=== PATIENT | female | born 1975 | race Caucasian/White ===

== ENCOUNTER 2016-09-12 17:34 | Emergency (ER) | payer BC, OTHER ==
[2016-09-12 18:10] VITALS: TEMP 98.7
--- NOTE | 2016-09-12 18:35 | ED ---
Female Urogenital HPI - General Chief complaint: Urogenital Stated complaint: preg bleeding Time Seen by Provider: 09/12/16 18:15 Source: patient, RN notes reviewed Mode of arrival: ambulatory Limitations: no limitations - History of Present Illness Initial comments: Patient is a 41-year-old female presents emergency room for evaluation of dysuria. Patient states she is about 14 weeks . Patient states she found out about a month ago that she was she was about 10 weeks along. Patient states she's not been able to follow-up with [facility] yet. Patient states she does not have an appointment until 10/04/16. Patient states pain and burning during urination began about 3 days ago. Patient also states last time she was here she was diagnosed with urinary tract infection and feels that the infection never went away. Patient states after she started urinating a blood clot passes. Patient states she does not think it's coming from her vaginal area. Patient denies abdominal cramping. Patient's age she has slight flank pain. Patient denies fevers, chills. Patient denies nausea or vomiting. Patient also states been experiencing right leg swelling for the past few weeks. Patient states afraid she's blood clot. Patient denies any history of blood clots. Patient denies any significant right leg pain. Patient denies any numbness or tingling in her toes. Patient denies any recent injuries, falls or trauma to her right leg. Last Menstrual Period: 06/03/16 - Related Data Home Medications Medication Instructions Recorded Confirmed Timolol 0.5% Ophth Soln [Timoptic 1 drop LEFT EYE TID 08/13/16 09/12/16 0.5% Ophth Soln] Ascorbic Acid [Vitamin C] 500 mg PO DAILY 09/12/16 09/12/16 Cyanocobalamin [Vitamin B-12] 500 mcg PO DAILY 09/12/16 09/12/16 Previous Rx's Medication Instructions Recorded Amoxicillin/Potassium Clav 1 each PO Q12HR 7 Days 09/12/16 [Augmentin 875-125 Tablet] Allergies Allergy/AdvReac Type Severity Reaction Status Date / Time No Known Allergies Allergy Verified 09/12/16 18:23 Review of Systems ROS Statement: Those systems with pertinent positive or pertinent negative responses have been documented in the HPI. ROS Other: All systems not noted in ROS Statement are negative. Past Medical History Past Medical History: Asthma Additional Past Medical History / Comment(s): meningitis History of Any Multi-Drug Resistant Organisms: ESBL Date of last positivie culture/infection: 08/13/16 MDRO Source:: urine e.coli ESBL Additional Past Surgical History / Comment(s): sinus and eye surgery Past Anesthesia/Blood Transfusion Reactions: No Reported Reaction Past Psychological History: Anxiety, Depression Smoking Status: Never smoker Past Alcohol Use History: None Reported Past Drug Use History: None Reported General Exam - General Exam Comments Initial Comments: Sitting in exam room, no acute distress. Limitations: no limitations General appearance: alert, in no apparent distress Head exam: Present: atraumatic, normocephalic, normal inspection Eye exam: Present: normal appearance ENT exam: Present: normal exam Neck exam: Present: normal inspection Respiratory exam: Present: normal lung sounds bilaterally. Absent: respiratory distress Cardiovascular Exam: Present: regular rate, normal rhythm, normal heart sounds GI/Abdominal exam: Present: soft, normal bowel sounds. Absent: distended, tenderness, guarding, rebound, rigid Extremities exam: Present: normal inspection, normal capillary refill Right Upper Leg exam: Absent: normal inspection (Enlarged veins on the medial upper thigh radiating to the medial portion of the knee) Neurovascular tendon exam: Present: no vascular compromise. Absent: pulse deficit (2+ dorsal pedal and posterior tibial pulses), abnormal cap refill ( Capillary refill less than 2 seconds) Gait: observed and normal Back exam: Present: normal inspection Neurological exam: Present: alert, oriented X3, CN II-XII intact, normal gait Psychiatric exam: Present: normal affect, normal mood Skin exam: Present: warm, dry, intact, normal color. Absent: rash Course Vital Signs 09/12/16 09/12/16 18:07 20:20 Temperature 98.7 F Pulse Rate 86 72 Respiratory 18 16 Rate Blood Pressure 157/75 123/67 O2 Sat by Pulse 100 Oximetry Medical Decision Making - Medical Decision Making Patient is a 41-year-old female since emergency room for evaluation of dysuria. Patient states she is 14 weeks . heart tones within normal range. Patient urinalysis still suspicious for urinary tract infection. No blood urine noted in urine. No blood noted during vaginal exam. Patient had a culture taken during last visit of her urine. Will place patient on Augmentin instead of Macrobid which she was on last time. Advised patient to follow-up with her [facility]. Right lower extremity venous Doppler ultrasound negative for DVT. Patient states she understands everything that was discussed with her. Return parameters discussed. Case discussed with Dr. Saul. - Lab Data Lab Results 09/12/16 09/12/16 Range/Units 18:00 19:25 Urine Color Yellow Urine Appearance Clear (Clear) Urine pH 6.0 (5.0-8.0) Ur Specific [place] 1.022 (1.001-1.035) Urine Protein Trace H (Negative) Urine Glucose (UA) Negative (Negative) Urine Ketones Trace H (Negative) Urine Blood Negative (Negative) Urine Nitrate Negative (Negative) Urine Bilirubin Negative (Negative) Urine Urobilinogen 2.0 (<2.0) mg/dL Ur Leukocyte Esterase Small H (Negative) Urine RBC 8 H (0-5) /hpf Urine WBC 46 H (0-5) /hpf Urine WBC Clumps Rare H (None) /hpf Ur Squamous Epith Cells 2 (0-4) /hpf Urine Bacteria Many H (None) /hpf Urine Mucus Few H (None) /hpf Trichomonas Ag (Rapid) Negative (Negative) - Radiology Data Radiology results: report reviewed, image reviewed Disposition Clinical Impression: Urinary tract infection affecting , Varicose veins during , antepartum Disposition: HOME SELF-CARE Condition: Good Instructions: Urinary Tract Infection in (ED) Additional Instructions: Take antibiotics as directed. Take Tylenol motion seen for pain. Please follow up with [facility] in 24-48 hours. If any new symptom arises, symptoms worsen or fever develops return to ER as soon as possible. Prescriptions: Amoxicillin/Potassium Clav [Augmentin 875-125 Tablet] 1 each PO Q12HR 7 Days Referrals: Halima Tyson MD [STAFF PHYSICIAN] - 1-2 days Time of Disposition: 20:07
[2016-09-12 18:44] LABS: Appearance,Urine Clear (Clear); Bacteria,Urine Many /hpf; Bilirubin,Urine Negative (Negative); Glucose,Urine (UA) Negative (Negative); Ketones,Urine Trace (Negative); Leukocyte Esterase,Urine Small (Negative); Mucus,Urine Few /hpf; Nitrite,Urine Negative (Negative); Particle Count 7761; Protein,Urine Trace (Negative); RBC,Urine 8 /hpf (0-5); Specific Gravity,Urine 1.022 (1.001-1.035); Squamous Epithelial Cell,Urine 2 /hpf (0-4); UA Billing (MACRO vs. MICRO) MICRO; WBC,Urine 46 /hpf (0-5)
--- NOTE | 2016-09-12 19:53 | US ---
EXAMINATION TYPE: US venous doppler duplex LE RT DATE OF EXAM: 09/12/2016 7:38 PM COMPARISON: NONE CLINICAL HISTORY: right leg swelling and pain, 14 weeks . SIDE PERFORMED: right VESSELS IMAGED: External Iliac Vein (EIV) Common Femoral Vein Deep Femoral Vein Greater Saphenous Vein * Femoral Vein Popliteal Vein Small Saphenous Vein * Proximal Calf Veins (* superficial vessels) TECHNOLOGIST IMPRESSION: Right Leg: appears negative for DVT IMPRESSION: Normal exam. No evidence of deep venous thrombosis in the right leg.
[2016-09-12 20:21] VITALS: BP 123/67; PULSE 72; RESP 16
== END 2016-09-12 20:20 | disposition home or self-care (01) ==
LOC: EC 17:34
DX: O23.42 Unspecified infection of urinary tract in pregnancy, second trimester (principal); Z3A.14 14 weeks gestation of pregnancy; O22.02 Varicose veins of lower extremity in pregnancy, second trimester; Z79.899 Other long term (current) drug therapy
CPT/HCPCS: 81001; 87070; 87205; 87491; 87591; 87808; 99284

== ENCOUNTER 2016-09-21 17:27 | Emergency (ER) | payer BC, OTHER ==
[2016-09-21 17:46] VITALS: BP 138/77; PULSE 77; RESP 20; TEMP 98.1
[2016-09-21 18:10] LABS: Appearance,Urine Turbid (Clear); Bilirubin,Urine Negative (Negative); Glucose,Urine (UA) Negative (Negative); Ketones,Urine 2+ (Negative); Leukocyte Esterase,Urine Large (Negative); Mucus,Urine Rare /hpf; Nitrite,Urine Negative (Negative); Particle Count 3052; Protein,Urine 1+ (Negative); RBC,Urine >182 /hpf (0-5); Specific Gravity,Urine 1.022 (1.001-1.035); Squamous Epithelial Cell,Urine 2 /hpf (0-4); UA Billing (MACRO vs. MICRO) MICRO; WBC,Urine >182 /hpf (0-5)
--- NOTE | 2016-09-21 18:44 | ED ---
Female Urogenital HPI - General Chief complaint: Urogenital Stated complaint: UTI Time Seen by Provider: 09/21/16 17:55 Source: patient, RN notes reviewed Mode of arrival: ambulatory Limitations: no limitations - History of Present Illness Initial comments: She is a 41-year-old 15 week female presenting to the with a complaint of dysuria and polyuria for the past week. Patient reports that she was seen in the approximately one week ago and multiple lab tests were done and concluded that she has a urinary tract infection. Patient was placed on Augmentin to treat her UTI. Patient reports that since taking antibiotic she continues to have symptoms. She denies any fever or chills abdominal pain or back pain. She denies any nausea or vomiting. She states that she has not been remaining hydrated as well. Patient reports that she's had chronic urinary tract infections her on her entire life. She denies any vaginal discharge. She denies any vaginal bleeding or pelvic pain.Patient denies any recent fever, chills, shortness of breath, chest pain, back pain, abdominal pain , nausea vomiting, numbness or tingling, or hematuria, constipation or diarrhea , headaches or visual changes, or any other current symptoms - Related Data Home Medications Medication Instructions Recorded Confirmed Ascorbic Acid [Vitamin C] 500 mg PO DAILY 09/12/16 09/21/16 Cyanocobalamin [Vitamin B-12] 500 mcg PO DAILY 09/12/16 09/21/16 Amoxicillin/Potassium Clav 1 tab PO Q12HR 09/21/16 09/21/16 [Augmentin 875-125 Tablet] Previous Rx's Medication Instructions Recorded Cephalexin [Keflex] 500 mg PO Q8HR #21 cap 09/21/16 Allergies Allergy/AdvReac Type Severity Reaction Status Date / Time No Known Allergies Allergy Verified 09/21/16 18:07 Review of Systems ROS Statement: Those systems with pertinent positive or pertinent negative responses have been documented in the HPI. ROS Other: All systems not noted in ROS Statement are negative. Past Medical History Past Medical History: Asthma Additional Past Medical History / Comment(s): meningitis History of Any Multi-Drug Resistant Organisms: ESBL Date of last positivie culture/infection: 08/13/16 MDRO Source:: urine e.coli ESBL Additional Past Surgical History / Comment(s): sinus and eye surgery Past Anesthesia/Blood Transfusion Reactions: No Reported Reaction Past Psychological History: Anxiety, Depression Smoking Status: Never smoker Past Alcohol Use History: None Reported Past Drug Use History: None Reported General Exam - General Exam Comments Initial Comments: is a pleasant 41-year-old female. She does not appear to be in any acute distress. Limitations: no limitations General appearance: alert, in no apparent distress Head exam: Present: atraumatic, normocephalic, normal inspection Eye exam: Present: normal appearance, PERRL, EOMI. Absent: scleral icterus, conjunctival injection, periorbital swelling ENT exam: Present: normal exam, mucous membranes moist Neck exam: Present: normal inspection. Absent: tenderness, meningismus, lymphadenopathy Respiratory exam: Present: normal lung sounds bilaterally. Absent: respiratory distress, wheezes, rales, rhonchi, stridor Cardiovascular Exam: Present: regular rate, normal rhythm, normal heart sounds. Absent: systolic murmur, diastolic murmur, rubs, gallop, clicks GI/Abdominal exam: Present: soft, normal bowel sounds. Absent: distended, tenderness, guarding, rebound, rigid Extremities exam: Present: normal inspection, full ROM, normal capillary refill. Absent: tenderness, pedal edema, joint swelling, calf tenderness Back exam: Present: normal inspection Neurological exam: Present: alert, oriented X3, CN II-XII intact Psychiatric exam: Present: normal affect, normal mood Skin exam: Present: warm, dry, intact, normal color. Absent: rash Course Vital Signs 09/21/16 17:39 Temperature 98.1 F Pulse Rate 77 Respiratory 20 Rate Blood Pressure 138/77 O2 Sat by Pulse 100 Oximetry Medical Decision Making - Medical Decision Making Patient is a pleasant 41-year-old female presenting to the with chief complaint of dysuria for 1 week. She has recently treated a prescription of Augmentin however she continues to have symptoms. There is no urine culture obtained on her initial visit. Patient's urinalysis does show signs of urinary tract infection again today. Patient will be started on Keflex and instructed to remain hydrated and take cranberry pills. I advised patient to return the EC if there are any fevers or worsening signs or symptoms. Patient understands treatment plan will comply. A urine culture is obtained at this time. Also given the fact the patient does not have any abdominal pain or pelvic discomfort we will forego any pelvic exams or imaging studies at this time. She also had a pelvic exam one week ago and was negative for any acute infection. - Lab Data Lab Results 09/21/16 Range/Units 17:46 Urine Color Yellow Urine Appearance Turbid H (Clear) Urine pH 6.0 (5.0-8.0) Ur Specific [place] 1.022 (1.001-1.035) Urine Protein 1+ H (Negative) Urine Glucose (UA) Negative (Negative) Urine Ketones 2+ H (Negative) Urine Blood Moderate H (Negative) Urine Nitrate Negative (Negative) Urine Bilirubin Negative (Negative) Urine Urobilinogen 2.0 (<2.0) mg/dL Ur Leukocyte Esterase Large H (Negative) Urine RBC >182 H (0-5) /hpf Urine WBC >182 H (0-5) /hpf Ur Squamous Epith Cells 2 (0-4) /hpf Urine Mucus Rare H (None) /hpf Disposition Clinical Impression: Urinary tract infection, Disposition: HOME SELF-CARE Condition: Good Instructions: Urinary Tract Infection in Women (ED), Urinary Tract Infection in (ED) Additional Instructions: Is instructed to continue to remain hydrated and to switch to new antibiotic prescription. Return to the EC if any alarming signs or symptoms occur. Follow -up with [facility] as directed. Prescriptions: Cephalexin [Keflex] 500 mg PO Q8HR #21 cap Referrals: None,Stated [Primary Care Provider] - 1-2 days Time of Disposition: 18:43
== END 2016-09-21 18:49 | disposition home or self-care (01) ==
LOC: EC 17:27
DX: O23.42 Unspecified infection of urinary tract in pregnancy, second trimester (principal); Z3A.15 15 weeks gestation of pregnancy
CPT/HCPCS: 81001; 87086; 99283

== ENCOUNTER → 2016-10-19 | Outpatient (CLI) | payer BC, OTHER ==
--- NOTE | 2016-10-19 16:25 | US ---
EXAMINATION TYPE: US OB >= 14 wk fetus DATE OF EXAM: 10/19/2016 4:14 PM COMPARISON: None CLINICAL HISTORY: Z36 Screening, Trisomy 18 Q91.0 Confirm dates TECHNIQUE: OBTA GESTATIONAL AGE / DATING Physician Established: Dates by LMP: 19weeks/5days EDC: 03/10/2017 Dates by First Scan: (20 weeks/0 days) EDC: 03/08/2017 Dates by Current Scan: (20 weeks/3 days) EDC: 03/05/2017 SURVEY IUP: Single PLACENTA: Anterior PREVIA: No Previa EDINSON: 18.5 cm Normal CERVICAL LENGTH (transabdominal: norm > 3.0cm): 3.3 cm BIOMETRY PRESENTATION: Variable LIE: Transverse with head maternal R BPD: 4.9 cm 21 weeks / 0 days HC: 17.6 cm 20 weeks / 1 days AC: 15.9 cm 21 weeks / 0 days FL: 3.1 cm 19 weeks / 5 days ESTIMATED WEIGHT IN GRAMS: 354 grams ESTIMATED WEIGHT IN LBS/OZS: 0 lbs. 12 oz. WEIGHT PERCENTAGE BASED ON ESTABLISHED DATES: 84.8% HC/AC: 1.1 Normal FL/AC: 19.7 Normal HEART RATE: 136 bpm RHYTHM: Normal TECHNOLOGIST IMPRESSION: Viable 20w3d fetus seen and appears wnl tech impression given to Tressa at office@[email or web address] IMPRESSION: Rodriguez fetus present in variable lie with a gestational age of 20 weeks 3 days +/- 2 weeks. Estima inocencia date confinement based on this examination is 03/05/2017
== END | disposition home or self-care (01) ==
LOC: RADUSWWP 15:46
PROVIDERS: ATTEND Obstetrics & Gynecology
DX: O35.1XX0 Maternal care for (suspected) chromosomal abnormality in fetus, not applicable or unspecified (principal); Z3A.20 20 weeks gestation of pregnancy
CPT/HCPCS: 76805

== ENCOUNTER → 2016-10-30 | Outpatient (CLI) | payer BC, OTHER ==
[2016-10-30 16:57] LABS: CH 31.8; HCT 38.1 % (34.0-46.0); HDW 2.82; HGB 12.6 gm/dL (11.4-16.0); MCH 31.2 pg (25.0-35.0); MCHC 33.1 g/dL (31.0-37.0); MCV 94.3 fL (80.0-100.0); Mean Platelet Volume 9.8; RBC 4.04 m/uL (3.80-5.40); RDW 13.9 % (11.5-15.5); WBC 8.3 k/uL (3.8-10.6)
[2016-10-30 17:25] LABS: Glucose 93 mg/dL (74-99); Non-African American GFR(MDRD) >60 (>60 ml/min/1.73 sqM)
[2016-10-30 17:57] LABS: Hepatitis B Surface Ag Index 0.09
[2016-10-31 00:47] LABS: ANA w/Reflex to Titer NEGATIVE (NEGATIVE)
[2016-10-31 01:39] LABS: Treponemal Ab Non-Reactive (Non-Reactive)
[2016-11-01 03:39] LABS: Toxoplasma Antibody (IgG) <3.0 IU/mL (<7.2)
[2016-11-02 20:38] LABS: HIV-1/HIV-2 Ab Screen NONREAC (NON REAC)
== END | disposition home or self-care (01) ==
LOC: LABWHC1 16:37
PROVIDERS: ATTEND Obstetrics & Gynecology
DX: O26.812 Pregnancy related exhaustion and fatigue, second trimester (principal); Z3A.00 Weeks of gestation of pregnancy not specified
CPT/HCPCS: 36415; 82565; 82947; 85027; 86038; 86762; 86777; 86778; 86780; 86850; 86900; 86901; 87340; 87389

== ENCOUNTER 2016-11-21 19:19 | Emergency (ER) | payer BC, OTHER ==
--- NOTE | 2016-11-21 20:43 | ED ---
URI HPI - General Chief Complaint: Upper Respiratory Infection Stated Complaint: congestion, sore throat Time Seen by Provider: 11/21/16 20:14 Source: patient, RN notes reviewed Mode of arrival: ambulatory Limitations: no limitations - History of Present Illness Initial Comments: Patient is a 41-year-old female who stating that she is 24 weeks presents to emergency department with one week of upper respiratory congestion, sore throat and fever. Patient reports that she's taken extra strength Tylenol earlier today. She states she's had no other [id number] medications that she is . She denies any history of sick contacts. She states she did not receive the flu vaccination.Patient denies any recent fever, chills, shortness of breath, chest pain, back pain, abdominal pain, nausea vomiting, numbness or tingling, dysuria or hematuria, constipation or diarrhea, headaches or visual changes, or any other current symptoms - Related Data Previous Rx's Medication Instructions Recorded Amoxicillin 500 mg PO Q12HR #14 cap 11/21/16 Allergies Allergy/AdvReac Type Severity Reaction Status Date / Time No Known Allergies Allergy Verified 11/21/16 19:53 Review of Systems ROS Statement: Those systems with pertinent positive or pertinent negative responses have been documented in the HPI. ROS Other: All systems not noted in ROS Statement are negative. Past Medical History Past Medical History: Asthma Additional Past Medical History / Comment(s): meningitis History of Any Multi-Drug Resistant Organisms: ESBL Date of last positivie culture/infection: 08/13/16 MDRO Source:: urine e.coli ESBL Additional Past Surgical History / Comment(s): sinus and eye surgery Past Anesthesia/Blood Transfusion Reactions: No Reported Reaction Past Psychological History: Anxiety, Depression Smoking Status: Never smoker Past Alcohol Use History: None Reported Past Drug Use History: None Reported General Exam Limitations: no limitations General appearance: alert, in no apparent distress Head exam: Present: atraumatic, normocephalic, normal inspection Eye exam: Present: normal appearance, PERRL, EOMI. Absent: scleral icterus, conjunctival injection, periorbital swelling ENT exam: Present: normal exam, mucous membranes moist, TM's normal bilaterally. Absent: normal oropharynx (Erythematous oropharynx) Neck exam: Present: normal inspection. Absent: tenderness, meningismus, lymphadenopathy Respiratory exam: Present: normal lung sounds bilaterally. Absent: respiratory distress, wheezes, rales, rhonchi, stridor Cardiovascular Exam: Present: regular rate, normal rhythm, normal heart sounds. Absent: systolic murmur, diastolic murmur, rubs, gallop, clicks GI/Abdominal exam: Present: soft, normal bowel sounds. Absent: distended, tenderness, guarding, rebound, rigid Extremities exam: Present: normal inspection, full ROM, normal capillary refill. Absent: tenderness, pedal edema, joint swelling, calf tenderness Back exam: Present: normal inspection Neurological exam: Present: alert, oriented X3, CN II-XII intact Psychiatric exam: Present: normal affect, normal mood Skin exam: Present: warm, dry, intact, normal color. Absent: rash Course Vital Signs 11/21/16 19:50 Temperature 97.3 F L Pulse Rate 80 Respiratory 16 Rate Blood Pressure 138/68 O2 Sat by Pulse 99 Oximetry Medical Decision Making - Medical Decision Making Patient has a 41-year-old 24 week female with 1 week of upper respiratory congestion and cough. Rapid strep and influenza are obtained. Lungs are clear to auscultation. No evidence of wheezing or rhonchi rest for distress. Patient's rapid strep and influenza are negative. Patient will be started on amoxicillin for a respiratory infection as mentioned. 7. Patient advised to follow up with primary care provider and return to the department if any alarming signs or symptoms occur. Return parameters were discussed. - Lab Data Lab Results 11/21/16 11/21/16 Range/Units 20:19 20:19 Influenza Type A RNA Not Detected (Not Detectd) Influenza Type B (PCR) Not Detected (Not Detectd) Group A Strep Rapid Negative (Negative) Disposition Clinical Impression: Upper respiratory infection Disposition: HOME SELF-CARE Condition: Good Instructions: Upper Respiratory Infection (ED) Additional Instructions: Patient denies to follow-up with primary care provider. Taking Garret prescription. Return to emergency department if any alarming signs or symptoms occur. Prescriptions: Amoxicillin 500 mg PO Q12HR #14 cap Referrals: None,Stated [Primary Care Provider] - 1-2 days Time of Disposition: 21:05
[2016-11-21 21:23] VITALS: BP 121/68; PULSE 89; RESP 18; TEMP 97.9
== END 2016-11-21 21:23 | disposition home or self-care (01) ==
LOC: EC 19:19
DX: J06.9 Acute upper respiratory infection, unspecified (principal); O26.892 Other specified pregnancy related conditions, second trimester; Z3A.24 24 weeks gestation of pregnancy
CPT/HCPCS: 87081; 87430; 87502; 99283

== ENCOUNTER 2016-11-24 01:44 | Emergency (ER) | payer BC, OTHER ==
[2016-11-24 01:50] VITALS: RESP 16; TEMP 98.3
--- NOTE | 2016-11-24 01:50 | ED ---
General Adult HPI - General Stated complaint: syncope Time Seen by Provider: 11/24/16 01:45 Source: RN notes reviewed - History of Present Illness Initial comments: This is a 41-year-old female who presents emergency Department stating she is 24 weeks . Patient states she was lying in bed and needs to go to the bathroom she got up out of bed felt dizzy had some ringing in areas in the next thing she knows she woke up on the floor. Patient states no one was there to witness it she was not incontinent of any urine. She states she has not been eating appropriately lately. Patient denies any injury when she went to the floor. Patient denies headache patient denies numbness weakness. Patient denies any chest pain palpitations difficulty breathing or shortness of breath. Patient denies any abdominal pain. Patient denies any nausea vomiting prior to the episode however she states when she woke up she did vomit times one. Patient denies any nausea currently. Patient denies any recent fever or chills. Patient states she has had a little bit of an upper respiratory infection and is currently taking penicillin - Related Data Previous Rx's Medication Instructions Recorded Amoxicillin 500 mg PO Q12HR #14 cap 11/21/16 Allergies Allergy/AdvReac Type Severity Reaction Status Date / Time No Known Allergies Allergy Verified 11/21/16 19:53 Review of Systems ROS Statement: Those systems with pertinent positive or pertinent negative responses have been documented in the HPI. ROS Other: All systems not noted in ROS Statement are negative. Past Medical History Past Medical History: Asthma Additional Past Medical History / Comment(s): meningitis History of Any Multi-Drug Resistant Organisms: ESBL Date of last positivie culture/infection: 08/13/16 MDRO Source:: urine e.coli ESBL Additional Past Surgical History / Comment(s): sinus and eye surgery Past Anesthesia/Blood Transfusion Reactions: No Reported Reaction Past Psychological History: Anxiety, Depression Smoking Status: Never smoker Past Alcohol Use History: None Reported Past Drug Use History: None Reported General Exam - General Exam Comments Initial Comments: GENERAL: Patient is well-developed and well-nourished. Patient is nontoxic and well- hydrated and is in mild distress. ENT: Neck is soft and supple. No significant lymphadenopathy is noted. Oropharynx is clear. Moist mucous membranes. Neck has full range of motion without eliciting any pain. EYES: The sclera were anicteric and conjunctiva were pink and moist. Extraocular movements were intact and pupils were equal round and reactive to light. Eyelids were unremarkable. PULMONARY: Unlabored respirations. Good breath sounds bilaterally. No audible rales rhonchi or wheezing was noted. CARDIOVASCULAR: There is a regular rate and rhythm without any murmurs gallops or rubs. ABDOMEN: Patient has a gravid abdomen SKIN: Skin is clear with no lesions or rashes and otherwise unremarkable. NEUROLOGIC: Patient is alert and oriented x3. Cranial nerves II through XII are grossly intact. Motor and sensory are also intact. Normal speech, volume and content. Symmetrical smile. MUSCULOSKELETAL: Normal extremities with adequate strength and full range of motion. No lower extremity swelling or edema. No calf tenderness. LYMPHATICS: No significant lymphadenopathy is noted PSYCHIATRIC: Normal psychiatric evaluation. Normal interpersonal interactions appears functionally intact in deals appropriately with others. No signs of depression. No signs of anxiety. Course Vital Signs 11/24/16 11/24/16 11/24/16 01:45 02:09 02:10 Temperature 98.3 F Pulse Rate 72 66 Respiratory 16 16 16 Rate Blood Pressure 143/72 115/55 Blood Pressure 115/55 [Right Arm] O2 Sat by Pulse 100 100 100 Oximetry 11/24/16 02:11 Temperature Pulse Rate 83 Respiratory 16 Rate Blood Pressure 129/70 Blood Pressure [Right Arm] O2 Sat by Pulse 100 Oximetry Medical Decision Making - Medical Decision Making EKG shows a normal sinus rhythm at 67 bpm. It was 124 Shital is 88 QT interval 422 QTC is 445. Patient's EKG shows no significant ST segment elevations or depressions. - Lab Data Result diagrams: 11/24/16 01:45 11/24/16 01:45 Lab Results 11/24/16 11/24/16 11/24/16 Range/Units 01:45 01:45 01:45 WBC 7.9 (3.8-10.6) k/uL RBC 3.73 L (3.80-5.40) m/uL Hgb 11.8 (11.4-16.0) gm/dL Hct 34.2 (34.0-46.0) % MCV 91.7 (80.0-100.0) fL MCH 31.6 (25.0-35.0) pg MCHC 34.5 (31.0-37.0) g/dL RDW 13.7 (11.5-15.5) % Plt Count 218 (150-450) k/uL Neutrophils % 67 % Lymphocytes % 24 % Monocytes % 4 % Eosinophils % 2 % Basophils % 0 % Neutrophils # 5.4 (1.3-7.7) k/uL Lymphocytes # 1.9 (1.0-4.8) k/uL Monocytes # 0.3 (0-1.0) k/uL Eosinophils # 0.2 (0-0.7) k/uL Basophils # 0.0 (0-0.2) k/uL PT (9.0-12.0) sec INR (<1.1) APTT (22.0-30.0) sec Sodium 136 L (137-145) mmol/L Potassium 4.0 (3.5-5.1) mmol/L Chloride 106 (98-107) mmol/L Carbon Dioxide 21 L (22-30) mmol/L Anion Gap 9 mmol/L BUN 9 (7-17) mg/dL Creatinine 0.60 (0.52-1.04) mg/dL Est GFR (MDRD) Af Amer >60 (>60 ml/min/1.73 sqM) Est GFR (MDRD) Non-Af >60 (>60 ml/min/1.73 sqM) Glucose 135 H (74-99) mg/dL Calcium 8.7 (8.4-10.2) mg/dL Magnesium 1.7 (1.6-2.3) mg/dL Total Bilirubin 0.3 (0.2-1.3) mg/dL AST 17 (14-36) U/L ALT 22 (9-52) U/L Alkaline Phosphatase 88 (38-126) U/L Total Creatine Kinase 96 (30-135) U/L CK-MB (CK-2) 1.4 (0.0-2.4) ng/mL CK-MB (CK-2) Rel Index 1.5 Troponin I <0.012 (0.000-0.034) ng/mL Total Protein 6.2 L (6.3-8.2) g/dL Albumin 3.0 L (3.5-5.0) g/dL 11/24/16 Range/Units 01:45 WBC (3.8-10.6) k/uL RBC (3.80-5.40) m/uL Hgb (11.4-16.0) gm/dL Hct (34.0-46.0) % MCV (80.0-100.0) fL MCH (25.0-35.0) pg MCHC (31.0-37.0) g/dL RDW (11.5-15.5) % Plt Count (150-450) k/uL Neutrophils % % Lymphocytes % % Monocytes % % Eosinophils % % Basophils % % Neutrophils # (1.3-7.7) k/uL Lymphocytes # (1.0-4.8) k/uL Monocytes # (0-1.0) k/uL Eosinophils # (0-0.7) k/uL Basophils # (0-0.2) k/uL PT 10.2 (9.0-12.0) sec INR 1.0 (<1.1) APTT 25.0 (22.0-30.0) sec Sodium (137-145) mmol/L Potassium (3.5-5.1) mmol/L Chloride (98-107) mmol/L Carbon Dioxide (22-30) mmol/L Anion Gap mmol/L BUN (7-17) mg/dL Creatinine (0.52-1.04) mg/dL Est GFR (MDRD) Af Amer (>60 ml/min/1.73 sqM) Est GFR (MDRD) Non-Af (>60 ml/min/1.73 sqM) Glucose (74-99) mg/dL Calcium (8.4-10.2) mg/dL Magnesium (1.6-2.3) mg/dL Total Bilirubin (0.2-1.3) mg/dL AST (14-36) U/L ALT (9-52) U/L Alkaline Phosphatase (38-126) U/L Total Creatine Kinase (30-135) U/L CK-MB (CK-2) (0.0-2.4) ng/mL CK-MB (CK-2) Rel Index Troponin I (0.000-0.034) ng/mL Total Protein (6.3-8.2) g/dL Albumin (3.5-5.0) g/dL Disposition Clinical Impression: Vasovagal syncope Disposition: HOME SELF-CARE Condition: Good Instructions: Hypotension (ED) Additional Instructions: Patient should follow-up with [facility] and/or her primary medical care doctor Time of Disposition: 03:13
[2016-11-24 01:56] LABS: Basophils % (A) 0 %; CH 31.4; CHCM 34.4; Eosinophils # (A) 0.2 k/uL (0-0.7); Eosinophils % (A) 2 %; HCT 34.2 % (34.0-46.0); HGB 11.8 gm/dL (11.4-16.0); Luc # (Auto) 0.22; Luc % (Auto) 3; Lymphocytes # (A) 1.9 k/uL (1.0-4.8); Lymphocytes % (A) 24 %; MCH 31.6 pg (25.0-35.0); MCHC 34.5 g/dL (31.0-37.0); MCV 91.7 fL (80.0-100.0); Mean Platelet Volume 8.3; Monocytes # (A) 0.3 k/uL (0-1.0); Monocytes % (A) 4 %; Neutrophils # (A) 5.4 k/uL (1.3-7.7); Neutrophils % (A) 67 %; RBC 3.73 m/uL (3.80-5.40); RDW 13.7 % (11.5-15.5); WBC 7.9 k/uL (3.8-10.6); WBC (Perox) 8.19
[2016-11-24 02:05] LABS: Prothrombin Time 10.2 sec (9.0-12.0)
[2016-11-24 02:11] VITALS: BP 129/70
[2016-11-24 02:16] LABS: ALT 22 U/L (9-52); AST 17 U/L (14-36); Alkaline Phosphatase 88 U/L (38-126); Anion Gap 9 mmol/L; Blood Urea Nitrogen 9 mg/dL (7-17); Calcium 8.7 mg/dL (8.4-10.2); Carbon Dioxide 21 mmol/L (22-30); Chloride 106 mmol/L (98-107); Glucose 135 mg/dL (74-99); Magnesium 1.7 mg/dL (1.6-2.3); Non-African American GFR(MDRD) >60 (>60 ml/min/1.73 sqM); Sodium 136 mmol/L (137-145); Total Bilirubin 0.3 mg/dL (0.2-1.3); Total Protein 6.2 g/dL (6.3-8.2)
[2016-11-24 02:20] LABS: Creatine Kinase 96 U/L (30-135)
[2016-11-24 02:32] LABS: Creatine Kinase MB 1.4 ng/mL (0.0-2.4); Troponin I <0.012 ng/mL (0.000-0.034)
[2016-11-24 03:24] VITALS: PULSE 70
== END 2016-11-24 03:23 | disposition home or self-care (01) ==
LOC: EC 01:44
DX: O26.892 Other specified pregnancy related conditions, second trimester (principal); R55 Syncope and collapse; Z3A.24 24 weeks gestation of pregnancy
CPT/HCPCS: 36415; 80053; 82550; 82553; 83735; 84484; 85025; 85610; 85730; 93005; 99284

== ENCOUNTER → 2016-12-20 | Outpatient (CLI) | payer BC, OTHER ==
[2016-12-20 13:15] LABS: CH 30.5; CHCM 32.7; HCT 38.1 % (34.0-46.0); HGB 12.4 gm/dL (11.4-16.0); MCH 30.6 pg (25.0-35.0); MCHC 32.6 g/dL (31.0-37.0); MCV 93.9 fL (80.0-100.0); Mean Platelet Volume 8.7; RBC 4.06 m/uL (3.80-5.40); RDW 13.6 % (11.5-15.5); WBC 7.5 k/uL (3.8-10.6)
== END | disposition home or self-care (01) ==
LOC: LABWHC1 11:55
PROVIDERS: ATTEND Obstetrics & Gynecology
DX: Z34.82 Encounter for supervision of other normal pregnancy, second trimester (principal); Z3A.00 Weeks of gestation of pregnancy not specified
CPT/HCPCS: 36415; 82950; 85027

== ENCOUNTER 2017-01-14 16:51 | Outpatient (CLI) | payer BC, OTHER | END 2017-01-14 17:20 | disposition home or self-care (01) | LOC: FBPOP 16:51 | PROVIDERS: ATTEND Obstetrics & Gynecology | DX: O26.93 Pregnancy related conditions, unspecified, third trimester (principal); Z3A.00 Weeks of gestation of pregnancy not specified | CPT/HCPCS: 59025 ==

== ENCOUNTER 2017-01-27 16:20 | Outpatient (CLI) | payer BC, OTHER ==
[2017-01-27] MEDS ORDERED: LACTATED RINGERS 1,000 ML IV ONE (18:00)
[2017-01-27 20:21] VITALS: BP 127/77; PULSE 77; RESP 18; TEMP 97.4
--- NOTE | 2017-01-28 08:10 | P.MSEPDOC ---
Presenting Problems - Arrival Data Date of Arrival on Unit: 01/27/17 Time of Arrival on Unit: 16:20 Mode of Transport: Wheelchair - Complaint OB-Reason for Admission/Chief Complaint: Trauma (Fall/MVA) Comment: pt fell at work at 1600 trying to pull on pallet and fell backwards and landed on her back and hit her head, Medical History - Information : 5 Para: 3 Term: 2 : 1 Abortions: Spontaneous or Elective: 1 Number of Living Children: 2 - Gestational Age Expected Date of Delivery: 03/09/17 Gestational Age by MARYANA (wks/days): 34 Weeks and 2 Days - History Complications: Prior Comment: high risk due to hole in the heart of this baby as well as 98% chance of having downs syndrome Review of Systems - Review of Systems Constitutional: No problems Breast: No problems ENT: No problems Cardiovascular: No problems Respiratory: No problems Genitourinary: No problems Musculoskeletal: No problems Neurological: No problems Skin: No problems Comment: pt has been nasueated since fall Vital Signs - Temperature Temperature: 97.4 F Temperature Source: Temporal Artery Scan - Pulse Right Brachial Pulse Rate: 77 - Respirations Respiratory Rate: 18 Oxygen Delivery Method: Room Air - Blood Pressure Right Arm Blood Pressure: 127/77 Blood Pressure Mean: 93 Blood Pressure Source: Automatic Cuff Medical Screen Scoring (Pre) - Cervical Exam Dilation: 0 cm = 0 Membranes: Intact - Uterine Contractions Frequency: Scheduled / = 6 Duration: > 40 seconds = 2 - Maternal Vital Signs Maternal Temperature: N/A Maternal Blood Pressure: N/A Signs of Preeclampsia: N/A Maternal Respirations: N/A - Maternal Trauma Maternal Trauma: N/A - Assessment Baseline FHR: 115 Heart Rate - NICHD Category: Category I (Normal) = 0 NST: Reactive Position: N/A Station: N/A - Total Score Total Score (Pre): 8 - Level of Risk Level of Risk: Medium (6-9) Physician Notification (Pre) - Physician Notified Physician Notified Date: 01/27/17 Physician Notified Time: 18:00 Physician/Practitioner Notifed:: Dr. Gonzalez Spoke With: Dr. Gonzalez New Order Received: Yes - Notification Comment Comment: pt fell at work, Silvia Hunt called Dr. Gonzalez and gave report on pt, of reactive nst, contraction pattern, pain, SVE, orders were given to give IVF bolus of LR for irritablity, and transfer to ER for further evaluation of fall Medical Screen Scoring (Post) - Cervical Exam Dilation: 0 cm = 0 Membranes: Intact - Uterine Contractions Frequency: Scheduled / = 6 Duration: > 40 seconds = 2 Intensity: N/A - Maternal Vital Signs Maternal Respirations: N/A - Maternal Trauma Maternal Trauma: N/A - Assessment Heart Rate: 115 Heart Rate - NICHD Category: Category I (Normal) = 0 NST: Reactive Position: N/A Station: N/A - Total Score Total Score (Post): 8 - Post Treatment Level of Risk Post Treatment Level of Risk: Medium (6-9) Physician Notification (Post) - Physician Notified Physician Notified Date: 01/27/17 Physician Notified Time: 19:45 Physician/Practitioner Notified:: Dr. Gonzalez Spoke With: Dr. Gonzalez New Order Received: Yes - Notification Comment Comment: Dr. Gonzalez notified of contraction pattern after 1 liter of LR was given for bolus, still have reactive NST, orders if cervical exam still closed thick and high, transfer pt to ER for further evaluation, but if pt still having contractions and wants further evaluation to return to L&D, Dr. Gonzalez viewed monitor strip from home. Disposition - Disposition OB Disposition: Triage Transferred to:: ER Discharge Date: 01/27/17 Discharge Time: 19:55 I agree with the RN Medical Screening Exam: Yes Risk & Benefit of care provided described in d/c instruction: Yes Diagnosis: FALL (ON)(FROM) SIDEWALK CURB, INITIAL ENCOUNTER (To ER for evaluation of head trauma.) Additional Diagnoses: contractions without labor
== END 2017-01-27 18:55 | disposition home or self-care (01) ==
LOC: FBPOP 16:20
PROVIDERS: ATTEND Obstetrics & Gynecology
DX: O60.03 Preterm labor without delivery, third trimester (principal); Z3A.34 34 weeks gestation of pregnancy
CPT/HCPCS: 59025; 84112; 96360; 99214

== ENCOUNTER 2017-01-27 20:02 | Emergency (ER) | payer BC, OTHER ==
[2017-01-27 20:14] VITALS: BP 131/64; PULSE 64; RESP 16; TEMP 98
--- NOTE | 2017-01-27 20:35 | ED ---
Fall HPI - General Chief Complaint: Fall Stated Complaint: Head Injury Time Seen by Provider: 01/27/17 20:22 Source: patient, RN notes reviewed, old records reviewed Mode of arrival: wheelchair Limitations: no limitations - History of Present Illness Initial Comments: 41-year-old female presents emergency Department chief complaint head injury. Patient had a head injury that happened approximately 5 hours or more. 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 She states that she had no loss consciousness and denies feeling dazed or confused. She states that she has a mild headache which her headache is not getting worse that she states that she is improving at this time. Patient states that she does have some nausea but is comes and goes and she said nausea throughout her . Patient is 34 weeks and has been evaluated by labor and delivery with a 4 hour a stress test. Patient denies any vaginal bleeding, vaginal discharge. She denies any back pain, neck pain. Patient denies any dizziness, blurred vision, focal weakness. Patient's significant other is in the room and states that she's had normal behavior. - Related Data Home Medications Medication Instructions Recorded Confirmed Acetaminophen [Tylenol] 500 mg PO Q4-6H PRN 01/27/17 01/27/17 Allergies Allergy/AdvReac Type Severity Reaction Status Date / Time No Known Allergies Allergy Verified 01/27/17 20:23 Review of Systems ROS Statement: Those systems with pertinent positive or pertinent negative responses have been documented in the HPI. ROS Other: All systems not noted in ROS Statement are negative. Past Medical History Past Medical History: Asthma Additional Past Medical History / Comment(s): meningitis History of Any Multi-Drug Resistant Organisms: None Reported, ESBL Date of last positivie culture/infection: 08/13/16 MDRO Source:: urine e.coli ESBL Additional Past Surgical History / Comment(s): sinus and eye surgery Past Anesthesia/Blood Transfusion Reactions: No Reported Reaction Past Psychological History: Anxiety, Depression Smoking Status: Never smoker Past Alcohol Use History: None Reported Past Drug Use History: None Reported General Exam Limitations: no limitations General appearance: alert, in no apparent distress Head exam: Present: atraumatic, normocephalic, normal inspection Eye exam: Present: normal appearance, PERRL, EOMI. Absent: scleral icterus, conjunctival injection, periorbital swelling ENT exam: Present: normal exam, normal oropharynx, mucous membranes moist, TM's normal bilaterally, normal external ear exam Neck exam: Present: normal inspection, full ROM. Absent: tenderness, meningismus, lymphadenopathy Respiratory exam: Present: normal lung sounds bilaterally. Absent: respiratory distress, wheezes, rales, rhonchi, stridor Cardiovascular Exam: Present: regular rate, normal rhythm, normal heart sounds. Absent: systolic murmur, diastolic murmur, rubs, gallop, clicks GI/Abdominal exam: Present: soft, normal bowel sounds. Absent: distended, tenderness, guarding, rebound, rigid Extremities exam: Present: normal inspection, full ROM, normal capillary refill. Absent: tenderness, pedal edema, joint swelling, calf tenderness Back exam: Present: full ROM. Absent: tenderness, vertebral tenderness Neurological exam: Present: alert, oriented X3, CN II-XII intact, reflexes normal, other ([id number] intact bilaterally without over shooting.). Absent: motor sensory deficit Skin exam: Present: warm, dry, intact, normal color. Absent: rash Course Vital Signs 01/27/17 20:07 Temperature 98.0 F Pulse Rate 64 Respiratory 16 Rate Blood Pressure 131/64 O2 Sat by Pulse 100 Oximetry Medical Decision Making - Medical Decision Making 41-year-old female presented for fall head injury. Patient has no neurological deficits. Patient states her headache is improving. Patient was sent from labor and delivery for evaluation possible CT. I did discuss that we can do a CT though there are risks including radiation to her and fetus. Patient states that she does not want a CAT scan at this time and read patient will take acetaminophen at home for headache and return if symptoms worsen. Patient family agreed to plan. Disposition Clinical Impression: Fall, Head injury Disposition: HOME SELF-CARE Condition: Stable Instructions: Head Injury (ED) Additional Instructions: Please return to the Emergency Department if symptoms worsen or any other concerns. Referrals: Froilan Pena DO [Primary Care Provider] - 1-2 days Time of Disposition: 20:35
== END 2017-01-27 20:47 | disposition home or self-care (01) ==
LOC: EC 20:02
DX: O9A.213 Injury, poisoning and certain other consequences of external causes complicating pregnancy, third trimester (principal); S09.90XA Unspecified injury of head, initial encounter; O99.89 Other specified diseases and conditions complicating pregnancy, childbirth and the puerperium; R11.0 Nausea; Z3A.34 34 weeks gestation of pregnancy; W01.198A Fall on same level from slipping, tripping and stumbling with subsequent striking against other object, initial encounter; Y92.89 Other specified places as the place of occurrence of the external cause
CPT/HCPCS: 99283

== ENCOUNTER → 2017-04-16 | Outpatient (CLI) | payer BC, OTHER ==
[2017-04-16 13:39] LABS: Basophils % (A) 1 %; CH 30.6; Eosinophils # (A) 0.1 k/uL (0-0.7); Eosinophils % (A) 2 %; HCT 38.9 % (34.0-46.0); HDW 2.09; HGB 12.3 gm/dL (11.4-16.0); Luc # (Auto) 0.11; Luc % (Auto) 2; Lymphocytes # (A) 1.4 k/uL (1.0-4.8); Lymphocytes % (A) 28 %; MCH 30.5 pg (25.0-35.0); MCHC 31.7 g/dL (31.0-37.0); MCV 96.1 fL (80.0-100.0); Mean Platelet Volume 9.1; Monocytes # (A) 0.2 k/uL (0-1.0); Monocytes % (A) 4 %; Neutrophils # (A) 3.2 k/uL (1.3-7.7); Neutrophils % (A) 64 %; RBC 4.04 m/uL (3.80-5.40); WBC (Perox) 5.43
== END ==
LOC: LABPAT 13:06
PROVIDERS: ATTEND Obstetrics & Gynecology
DX: Z01.812 Encounter for preprocedural laboratory examination (principal)
CPT/HCPCS: 85025

== ENCOUNTER 2017-04-22 05:53 | Day surgery (SDC) | payer BC, OTHER ==
[2017-04-12 11:11] VITALS: BMI 31.4
[~2017-04-22 05:53] MED LIST: DEXAMETHASONE SOD PHOSPHATE 10 MG/ML 1 ML VIAL IV ONE; LACTATED RINGERS 1,000 ML IV SCH; ONDANSETRON 4 MG/2 ML VIAL IVP ONE; Pre Op ABX Message 1 EACH MISC MISCELLANE ONE
[2017-04-22] MEDS ORDERED: LIDOCAINE 1% 20 ML VIAL (10MG/ML) FOR IV START INTRADERMA ONE (06:34)
[2017-04-22] MEDS ORDERED: SCOPOLAMINE 1.5MG/72HR PATCH TRANSDERM ONE (06:36)
[2017-04-22] MEDS ORDERED: MIDAZOLAM 2 MG/2 ML VIAL ONE (07:10)
[2017-04-22] MEDS ORDERED: ROCURONIUM BROMIDE 10 MG/ML 10 ML VIAL IV ONE (07:10)
[2017-04-22] MEDS ORDERED: PROPOFOL 10 MG/ML 20 ML VIAL IV ONE (07:10)
[2017-04-22] MEDS ORDERED: SUCCINYLCHOLINE CHLORIDE 100 MG/5 ML SYR IV ONE (07:10)
[2017-04-22] MEDS ORDERED: LIDOCAINE 1% INJ 10MG/ML (20 ML MDV) ONE (07:10)
[2017-04-22] MEDS ORDERED: fentaNYL (PF) 50 MCG/ML 2 ML AMP ONE (07:10)
[2017-04-22] MEDS ORDERED: KETOROLAC 30 MG/ML 1 ML VIAL ONE (07:10)
[2017-04-22] MEDS ORDERED: NEOSTIGMINE 1 MG/ML 10 ML VIAL ONE (07:10)
[2017-04-22] MEDS ORDERED: GLYCOPYRROLATE 0.2 MG/ML 2 ML VIAL ONE (07:10)
--- NOTE | 2017-04-22 07:13 | P.HPOB ---
History of Present Illness H&P Date: 04/22/17 Chief Complaint: Family planning Patient is a 42-year-old female who is completed her family planning desires permanent sterilization. Risks/benefits/alternatives to left scopic tubal occlusion were discussed with the patient in detail and all questions are answered for her prior to proceeding to the operating room. Patient did undergo a section approximately 68 weeks ago at clinic [facility] but has very [facility] baby 90 tubal ligations. She is therefore scheduled for left tubal. Physical exam vital signs stable afebrile. Heart regular, lungs clear, extremities without pain. Pelvic exams unremarkable. Assessment family planning. Plan left scopic tubal occlusion with Filshie clips. 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 History of Any Multi-Drug Resistant Organisms: None Reported, ESBL Date of last positivie culture/infection: 08/13/16 MDRO Source:: urine e.coli ESBL Additional Past Surgical History / Comment(s): sinus and eye surgery Past Anesthesia/Blood Transfusion Reactions: No Reported Reaction Past Psychological History: Anxiety, Depression Smoking Status: Never smoker Past Alcohol Use History: None Reported Past Drug Use History: None Reported - Past Family History Mother Family Medical History: No Reported History Medications and Allergies Home Medications Medication Instructions Recorded Confirmed Type No Known Home Medications [No 02/27/17 04/12/17 History Known Home Medications] Allergies Allergy/AdvReac Type Severity Reaction Status Date / Time No Known Allergies Allergy Verified 04/12/17 11:01 Exam Osteopathic Statement: *. No significant issues noted on an osteopathic structural exam other than those noted in the History and Physical/Consult. - Vital Signs Vital signs: Vital Signs Temp Pulse Resp BP Pulse Ox 04/22/17 06:18 97.8 F 50 L 16 119/73 99 Intake and Output 04/21/17 04/22/17 04/22/17 22:59 06:59 14:59 Intake Total 100 Balance 100 Intake: IV 100
[2017-04-22] MEDS ORDERED: BUPIVACAINE (PF) 0.25% 30 ML VIAL SQ ONE ×2 (07:35)
--- NOTE | 2017-04-22 07:54 | P.OP ---
Date of Procedure: 04/22/17 Preoperative Diagnosis: Family planning Postoperative Diagnosis: Same Procedure(s) Performed: Laparoscopic tubal occlusion with Filshie clips Implants: Anesthesia: CRISTOFERA Surgeon: Froilan Pena Estimated Blood Loss (ml): 5 Urine output (ml): 10 Pathology: none sent Condition: stable Disposition: same day Indications for Procedure: Operative Findings: Significant scarring of the bladder was noted to the anterior uterine wall as well as significant endometriosis. Description of Procedure: He was taken to the operating suite where a general anesthetic Saturday. She was prepped and draped in the normal sterile fashion placed in dorsal lithotomy position. Initially a speculum was inserted into the vagina into lip cervix identified and grasped a single-tooth tenaculum and a uterine manipulator was inserted without difficulty. Instruments were removed and red rubber catheter was used to drain the bladder of urine. Gloves were then changed and attention was turned to abdominal portion procedure where 3 mL of quarter percent Marcaine was injected periumbilically. Through this injected anesthetic a 5 mL skin incision was made and through this incision under direct visualization with an optical trocar and sleeve the camera was inserted. Once peritoneal placement was assured gas was left fully insufflate the abdomen and patient was then placed in steep Trendelenburg position. A second 8 mm skin incision was then made in her scar and a port was inserted through this under direct visualization. Uterus was then elevated and the right and left fallopian tubes were identified and Filshie clip was applied 2-3 cm from uterine cornu. Seeing no bleeding from the mesosalpinx instruments were removed and gas was allowed to expel from the abdomen. 5 deep breaths were provided during this process. 4-0 Vicryl was used then to close incision subcuticularly once removal of the ports was done. The remaining and cc of quarter percent Marcaine was then injected around these incisions. Instruments were then removed from the vagina and patient was taken to the recovery room in stable and satisfactory condition. Plan - Discharge Summary New Discharge Prescriptions: New HYDROcodone/APAP 5-325MG [Neihart 5-325] 1 tab PO Q4HR PRN #30 tab PRN Reason: Pain Ibuprofen [Motrin] 600 mg PO Q6HR PRN #30 tab PRN Reason: Pain Discharge Medication List HYDROcodone/APAP 5-325MG [Neihart 5-325] 1 tab PO Q4HR PRN #30 tab 04/22/17 [Rx] Ibuprofen [Motrin] 600 mg PO Q6HR PRN #30 tab 04/22/17 [Rx] Follow up Appointment(s)/Referral(s): Froilan Pena DO [Doctor of Osteopathic Medicine] - 2 Weeks Activity/Diet/Wound Care/Special Instructions: no heavy lifting, limit stairs and driving and pelvic rest. If any high temperatures, heavy bleeding, or severe pain call my office Discharge Disposition: HOME SELF-CARE
[2017-04-22] MEDS: HYDROmorphone 1 MG/ML 1 ML SYRINGE IVP PRN ×4 (08:06→08:21)
[2017-04-22] MEDS ORDERED: LACTATED RINGERS 1,000 ML IV ONE ×2 (08:20)
[2017-04-22 08:21] VITALS: TEMP 97
[2017-04-22] MEDS: MEPERIDINE 50 MG/ML SYRINGE IVP ONE ×2 (08:38→08:48)
[2017-04-22 08:52] VITALS: RESP 16
[2017-04-22] MEDS ORDERED: ONDANSETRON 4 MG/2 ML VIAL IVP ONE (10:11)
[2017-04-22 10:41] VITALS: BP 132/76; PULSE 46
== END 2017-04-22 11:25 | disposition home or self-care (01) ==
LOC: OR 05:53
PROVIDERS: ATTEND Obstetrics & Gynecology
DX: Z30.2 Encounter for sterilization (principal); J45.909 Unspecified asthma, uncomplicated
CPT/HCPCS: 81025; 58671; J2250; J1100; J2710; J2175; J2405; J2001; J3010; J1885; J1170; J0330; J2704

== ENCOUNTER 2018-04-22 12:20 | Emergency (ER) | payer BC, OTHER ==
[2018-04-22 12:40] VITALS: RESP 16
[2018-04-22 13:12] LABS: Appearance,Urine Clear (Clear); Bacteria,Urine Occasional /hpf; Bilirubin,Urine Negative (Negative); Blood,Urine Large (Negative); Color,Urine Yellow; Glucose,Urine (UA) Negative (Negative); Ketones,Urine Negative (Negative); Leukocyte Esterase,Urine Moderate (Negative); Mucus,Urine Rare /hpf; Nitrite,Urine Negative (Negative); PH, Urine 7.5 (5.0-8.0); Protein,Urine Trace (Negative); RBC,Urine 35 /hpf (0-5); Specific Gravity,Urine 1.014 (1.001-1.035); Squamous Epithelial Cell,Urine 9 /hpf (0-4); Urobilinogen,Urine <2.0 mg/dL (<2.0)
--- NOTE | 2018-04-22 13:20 | ED ---
General Adult HPI - General Chief complaint: Urogenital Stated complaint: poss UTI Time Seen by Provider: 04/22/18 12:40 Source: patient, RN notes reviewed Mode of arrival: ambulatory Limitations: no limitations - History of Present Illness Initial comments: 43-year-old female presents to the emergency department for a chief complaint of dysuria times one day. Patient states she was having some burning and pain with urination that started last night. Patient states she also noticed blood in her urine. Patient denies being on her period. Patient states she has had a tubal in the past and does not believe she could be . Patient states she has some lower abdominal pain above her bladder. Patient denies any other abdominal pain. Patient denies back pain. Patient admits to mild nausea, denies vomiting. Patient has been having normal bowel movements. Patient denies any fevers at home. Patient does have a history of urinary tract infections and states these symptoms are consistent. Patient has no other complaints at this time including shortness of breath, chest pain, abdominal pain, nausea or vomiting, headache, or visual changes. - Related Data Previous Rx's Medication Instructions Recorded Cephalexin [Keflex] 500 mg PO Q6HR 10 Days cap 04/22/18 Allergies Allergy/AdvReac Type Severity Reaction Status Date / Time No Known Allergies Allergy Verified 04/22/18 13:19 Review of Systems ROS Statement: Those systems with pertinent positive or pertinent negative responses have been documented in the HPI. ROS Other: All systems not noted in ROS Statement are negative. 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 History of Any Multi-Drug Resistant Organisms: None Reported, ESBL Date of last positivie culture/infection: 08/13/16 MDRO Source:: urine e.coli ESBL Additional Past Surgical History / Comment(s): sinus and multiple eye surgery Past Anesthesia/Blood Transfusion Reactions: No Reported Reaction Past Psychological History: Anxiety, Depression Smoking Status: Never smoker Past Alcohol Use History: None Reported Past Drug Use History: None Reported - Past Family History Mother Family Medical History: No Reported History General Exam Limitations: no limitations General appearance: alert, in no apparent distress Head exam: Present: atraumatic, normocephalic, normal inspection Eye exam: Present: normal appearance. Absent: scleral icterus, conjunctival injection ENT exam: Present: normal exam, mucous membranes moist Neck exam: Present: normal inspection, full ROM. Absent: tenderness, meningismus, lymphadenopathy Respiratory exam: Present: normal lung sounds bilaterally. Absent: respiratory distress, wheezes, rales, rhonchi, stridor Cardiovascular Exam: Present: regular rate, normal rhythm, normal heart sounds. Absent: systolic murmur, diastolic murmur, rubs, gallop, clicks GI/Abdominal exam: Present: soft, tenderness (mild suprapubic tenderness without guarding), normal bowel sounds. Absent: distended, guarding, rebound, rigid Course Vital Signs 04/22/18 12:37 Temperature 98.4 F Pulse Rate 66 Respiratory 16 Rate Blood Pressure 125/72 O2 Sat by Pulse 96 Oximetry Medical Decision Making - Medical Decision Making 43-year-old female presents to the emergency department for a chief complaint of dysuria times one day. Patient states she has had urinary tract infections in the past and the symptoms are consistent. Patient denies fevers or chills at home. Patient afebrile in the ED with a temperature of 98.4 and a heart rate of 66. Patient describes a burning sensation while urinating along with mild lower abdominal pain. Patient states she also noticed blood in her urine. Patient has mild suprapubic tenderness without guarding. Negative CVA tenderness bilaterally. Patient does have moderate leukocyte esterase with occasional bacteria. Large blood noted. Neg HCG. patient will be treated with Keflex. Urine will be cultured. She will follow-up with primary care in 1-2 days. If symptoms do not resolve or worsen patient aware to return to the emergency department. - Lab Data Lab Results 04/22/18 04/22/18 Range/Units 13:00 13:00 Urine Color Yellow Urine Appearance Clear (Clear) Urine pH 7.5 (5.0-8.0) Ur Specific [place] 1.014 (1.001-1.035) Urine Protein Trace H (Negative) Urine Glucose (UA) Negative (Negative) Urine Ketones Negative (Negative) Urine Blood Large H (Negative) Urine Nitrite Negative (Negative) Urine Bilirubin Negative (Negative) Urine Urobilinogen <2.0 (<2.0) mg/dL Ur Leukocyte Esterase Moderate H (Negative) Urine RBC 35 H (0-5) /hpf Ur Squamous Epith Cells 9 H (0-4) /hpf Urine Bacteria Occasional H (None) /hpf Urine Mucus Rare H (None) /hpf Urine HCG, Qual Not Detected (Not Detectd) Disposition Clinical Impression: Dysuria, Cystitis Disposition: HOME SELF-CARE Condition: Good Instructions: Urinary Tract Infection in Women (ED) Additional Instructions: Please take antibiotics as directed. Please follow-up with primary care in 1-2 days. Return to the emergency department if you develop fevers or any worsening symptoms. Prescriptions: Cephalexin [Keflex] 500 mg PO Q6HR 10 Days cap Is patient prescribed a controlled substance at d/c from ED?: No Referrals: Rishabh Crespo DO [STAFF PHYSICIAN] - 1-2 days Time of Disposition: 13:26
[2018-04-22 13:44] VITALS: BP 126/68; PULSE 72; TEMP 98.6
== END 2018-04-22 13:43 | disposition home or self-care (01) ==
LOC: EC 12:20
DX: N30.91 Cystitis, unspecified with hematuria (principal)
CPT/HCPCS: 81001; 81025; 87077; 87086; 87186; 99283

== ENCOUNTER 2018-05-02 16:41 | Observation (INO) | payer BC, OTHER ==
[2018-05-02] MEDS ORDERED: KETOROLAC 30 MG/ML 1 ML VIAL IVP STA (17:22)
[2018-05-02] MEDS ORDERED: SODIUM CHLORIDE 0.9% 1,000 ML IV STA (17:22)
--- NOTE | 2018-05-02 17:33 | ED ---
General Adult HPI - General Chief complaint: Abdominal Pain Stated complaint: ABd Pain, Chest Pain Time Seen by Provider: 05/02/18 17:05 Source: patient, RN notes reviewed Mode of arrival: ambulatory Limitations: no limitations - History of Present Illness Initial comments: 43-year-old female presents to the emergency department for multiple complaints. Patient was seen here about 10 days ago for urinary tract infection. At that time patient was experiencing dysuria for about 1 day. Patient was treated for a urinary tract infection. She has no other complaints at the time. However, today patient presents with continued dysuria. She states urinary frequency has decreased and she no longer sees blood in the urine. However, she does still experience dysuria which she has difficulty explaining. Patient also admits to lower abdominal pressure when urinating. In addition, patient has bilateral back pain around the thoracic area, worse on the right. Patient states she has chronic back pain but states it is somewhat worse than her usual pain. Patient states the pain is constant and radiates around her right side. Patient also complains of right upper quadrant abdominal pain 4 days. She also states this pain is a constant sharp burning pain. Patient is not sure what makes this pain better or worse and rates the pain as a 6 out of 10. Patient also states that today she developed chest pressure. Patient denies any shortness of breath. She denies any sharp pains or radiating pains down the arms. Patient denies any cardiac history or other medical history besides sinus surgery. Patient states the pain started when she was out work. Patient denies any fevers or chills at home. Patient has no other complaints at this time including shortness of breath, headache, or visual changes. - Related Data Home Medications Medication Instructions Recorded Confirmed No Known Home Medications 05/02/18 05/02/18 Allergies Allergy/AdvReac Type Severity Reaction Status Date / Time No Known Allergies Allergy Verified 05/02/18 17:07 Review of Systems ROS Statement: Those systems with pertinent positive or pertinent negative responses have been documented in the HPI. ROS Other: All systems not noted in ROS Statement are negative. 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 History of Any Multi-Drug Resistant Organisms: ESBL Date of last positivie culture/infection: 08/13/16 MDRO Source:: urine e.coli ESBL Additional Past Surgical History / Comment(s): sinus and multiple eye surgery Past Anesthesia/Blood Transfusion Reactions: No Reported Reaction Past Psychological History: Anxiety, Depression Smoking Status: Never smoker Past Alcohol Use History: None Reported Past Drug Use History: None Reported - Past Family History Mother Family Medical History: No Reported History General Exam Limitations: no limitations General appearance: alert, in no apparent distress Head exam: Present: atraumatic, normocephalic, normal inspection Eye exam: Present: normal appearance, PERRL, EOMI. Absent: scleral icterus, conjunctival injection, nystagmus, periorbital swelling, periorbital tenderness ENT exam: Present: normal exam, mucous membranes moist, normal external ear exam Neck exam: Present: normal inspection, full ROM. Absent: tenderness, meningismus, lymphadenopathy Respiratory exam: Present: normal lung sounds bilaterally. Absent: respiratory distress, wheezes, rales, rhonchi, stridor Cardiovascular Exam: Present: regular rate, normal rhythm, normal heart sounds. Absent: systolic murmur, diastolic murmur, rubs, gallop, clicks GI/Abdominal exam: Present: soft, tenderness (Patient has mild diffuse abdominal tenderness worse in the right upper quadrant, ), normal bowel sounds, other (neg shen sign, neg neg obturator/psoas signs.). Absent: distended, guarding, rebound, rigid Back exam: Absent: CVA tenderness (R), CVA tenderness (L) Neurological exam: Present: alert, oriented X3, CN II-XII intact Psychiatric exam: Present: normal affect, normal mood Skin exam: Present: normal color Course Vital Signs 05/02/18 17:01 Temperature 98.5 F Pulse Rate 80 Respiratory 20 Rate Blood Pressure 136/84 O2 Sat by Pulse 100 Oximetry EKG Findings - EKG Comments: EKG Findings:: NSR, vent rate 60, ND int 142, QRS duration 90, interpreted by myself and Dr Haney. Medical Decision Making - Medical Decision Making 43-year-old female presents to the emergency department for multiple complaints. Patient complains of continued dysuria despite Keflex use for recent urinary tract infection. Urine was clear today but was cultured. Discussed possible antibiotic initiation after culture results received. Patient also complains of abdominal pain. CBC and CMP unremarkable. CT noncontrast was ordered due to possibility of kidney stone as patient also had right-sided back pain which was negative. Did offer ultrasound of the gallbladder which patient refused at this time and states she would like to see if it gets better before she has any additional testing done. Patient was also complaining of chest pressure as of today. Cardiac profile and troponin negative. PERC negative, no shortness of breath, d dimer not ordered. However as patient does have new onset chest pressure as of today she will be admitted to observation. - Lab Data Result diagrams: 05/02/18 17:40 05/02/18 17:40 Lab Results 05/02/18 05/02/18 05/02/18 Range/Units 17:40 17:40 17:40 WBC 5.2 (3.8-10.6) k/uL RBC 4.14 (3.80-5.40) m/uL Hgb 13.1 (11.4-16.0) gm/dL Hct 38.8 (34.0-46.0) % MCV 93.8 (80.0-100.0) fL MCH 31.6 (25.0-35.0) pg MCHC 33.7 (31.0-37.0) g/dL RDW 13.1 (11.5-15.5) % Plt Count 147 L (150-450) k/uL Neutrophils % 63 % Lymphocytes % 26 % Monocytes % 5 % Eosinophils % 3 % Basophils % 1 % Neutrophils # 3.3 (1.3-7.7) k/uL Lymphocytes # 1.4 (1.0-4.8) k/uL Monocytes # 0.2 (0-1.0) k/uL Eosinophils # 0.2 (0-0.7) k/uL Basophils # 0.1 (0-0.2) k/uL PT (9.0-12.0) sec INR (<1.2) APTT (22.0-30.0) sec Sodium 139 (137-145) mmol/L Potassium 4.1 (3.5-5.1) mmol/L Chloride 107 (98-107) mmol/L Carbon Dioxide 24 (22-30) mmol/L Anion Gap 8 mmol/L BUN 22 H (7-17) mg/dL Creatinine 0.90 (0.52-1.04) mg/dL Est GFR (CKD-EPI)AfAm >90 (>60 ml/min/1.73 sqM) Est GFR (CKD-EPI)NonAf 80 (>60 ml/min/1.73 sqM) Glucose 80 (74-99) mg/dL Calcium 8.7 (8.4-10.2) mg/dL Magnesium 1.8 (1.6-2.3) mg/dL Total Bilirubin 0.3 (0.2-1.3) mg/dL AST 15 (14-36) U/L ALT 22 (9-52) U/L Alkaline Phosphatase 53 (38-126) U/L Total Creatine Kinase 75 (30-135) U/L CK-MB (CK-2) 0.5 (0.0-2.4) ng/mL CK-MB (CK-2) Rel Index 0.7 Troponin I <0.012 (0.000-0.034) ng/mL Total Protein 6.5 (6.3-8.2) g/dL Albumin 3.8 (3.5-5.0) g/dL Amylase 71 (30-110) U/L Lipase 111 (23-300) U/L Urine Color Urine Appearance (Clear) Urine pH (5.0-8.0) Ur Specific [place] (1.001-1.035) Urine Protein (Negative) Urine Glucose (UA) (Negative) Urine Ketones (Negative) Urine Blood (Negative) Urine Nitrite (Negative) Urine Bilirubin (Negative) Urine Urobilinogen (<2.0) mg/dL Ur Leukocyte Esterase (Negative) Urine HCG, Qual (Not Detectd) 05/02/18 05/02/18 05/02/18 Range/Units 17:40 17:40 17:40 WBC (3.8-10.6) k/uL RBC (3.80-5.40) m/uL Hgb (11.4-16.0) gm/dL Hct (34.0-46.0) % MCV (80.0-100.0) fL MCH (25.0-35.0) pg MCHC (31.0-37.0) g/dL RDW (11.5-15.5) % Plt Count (150-450) k/uL Neutrophils % % Lymphocytes % % Monocytes % % Eosinophils % % Basophils % % Neutrophils # (1.3-7.7) k/uL Lymphocytes # (1.0-4.8) k/uL Monocytes # (0-1.0) k/uL Eosinophils # (0-0.7) k/uL Basophils # (0-0.2) k/uL PT 9.9 (9.0-12.0) sec INR 1.0 (<1.2) APTT 23.8 (22.0-30.0) sec Sodium (137-145) mmol/L Potassium (3.5-5.1) mmol/L Chloride (98-107) mmol/L Carbon Dioxide (22-30) mmol/L Anion Gap mmol/L BUN (7-17) mg/dL Creatinine (0.52-1.04) mg/dL Est GFR (CKD-EPI)AfAm (>60 ml/min/1.73 sqM) Est GFR (CKD-EPI)NonAf (>60 ml/min/1.73 sqM) Glucose (74-99) mg/dL Calcium (8.4-10.2) mg/dL Magnesium (1.6-2.3) mg/dL Total Bilirubin (0.2-1.3) mg/dL AST (14-36) U/L ALT (9-52) U/L Alkaline Phosphatase (38-126) U/L Total Creatine Kinase (30-135) U/L CK-MB (CK-2) (0.0-2.4) ng/mL CK-MB (CK-2) Rel Index Troponin I (0.000-0.034) ng/mL Total Protein (6.3-8.2) g/dL Albumin (3.5-5.0) g/dL Amylase (30-110) U/L Lipase (23-300) U/L Urine Color Yellow Urine Appearance Clear (Clear) Urine pH 5.5 (5.0-8.0) Ur Specific [place] 1.021 (1.001-1.035) Urine Protein Negative (Negative) Urine Glucose (UA) Negative (Negative) Urine Ketones Negative (Negative) Urine Blood Negative (Negative) Urine Nitrite Negative (Negative) Urine Bilirubin Negative (Negative) Urine Urobilinogen 2.0 (<2.0) mg/dL Ur Leukocyte Esterase Negative (Negative) Urine HCG, Qual Not Detected (Not Detectd) Disposition Clinical Impression: Unstable angina, Abdominal pain Disposition: ADMITTED IP TO THIS HOSP Condition: Good Referrals: None,Stated [Primary Care Provider] - 1-2 days Time of Disposition: 20:55
--- NOTE | 2018-05-02 18:34 | XR ---
EXAMINATION TYPE: XR chest 2V DATE OF EXAM: 05/02/2018 COMPARISON: 11/12/2015 HISTORY: Chest pain TECHNIQUE: Frontal and lateral views of the chest are obtained. FINDINGS: Heart and mediastinum are normal. Lungs are clear. Diaphragm is normal. Bony thorax is int act. IMPRESSION: Normal chest. No change.
[2018-05-02 19:16] LABS: Appearance,Urine Clear (Clear); Basophils # (A) 0.1 k/uL (0-0.2); Basophils % (A) 1 %; Bilirubin,Urine Negative (Negative); Blood,Urine Negative (Negative); Color,Urine Yellow; Eosinophils # (A) 0.2 k/uL (0-0.7); Eosinophils % (A) 3 %; Glucose,Urine (UA) Negative (Negative); HCT 38.8 % (34.0-46.0); HGB 13.1 gm/dL (11.4-16.0); Ketones,Urine Negative (Negative); Leukocyte Esterase,Urine Negative (Negative); Lymphocytes # (A) 1.4 k/uL (1.0-4.8); Lymphocytes % (A) 26 %; MCH 31.6 pg (25.0-35.0); MCHC 33.7 g/dL (31.0-37.0); MCV 93.8 fL (80.0-100.0); Monocytes # (A) 0.2 k/uL (0-1.0); Monocytes % (A) 5 %; Neutrophils # (A) 3.3 k/uL (1.3-7.7); Neutrophils % (A) 63 %; Nitrite,Urine Negative (Negative); PH, Urine 5.5 (5.0-8.0); Platelet Count 147 k/uL (150-450); Protein,Urine Negative (Negative); RBC 4.14 m/uL (3.80-5.40); RDW 13.1 % (11.5-15.5); Specific Gravity,Urine 1.021 (1.001-1.035); WBC 5.2 k/uL (3.8-10.6)
[2018-05-02 19:26] LABS: ALT 22 U/L (9-52); AST 15 U/L (14-36); Albumin 3.8 g/dL (3.5-5.0); Alkaline Phosphatase 53 U/L (38-126); Amylase 71 U/L (30-110); Anion Gap 8 mmol/L; Blood Urea Nitrogen 22 mg/dL (7-17); Calcium 8.7 mg/dL (8.4-10.2); Carbon Dioxide 24 mmol/L (22-30); Chloride 107 mmol/L (98-107); Creatine Kinase 75 U/L (30-135); Glucose 80 mg/dL (74-99); Lipase 111 U/L (23-300); Magnesium 1.8 mg/dL (1.6-2.3); Potassium 4.1 mmol/L (3.5-5.1); Sodium 139 mmol/L (137-145); Total Bilirubin 0.3 mg/dL (0.2-1.3); Total Protein 6.5 g/dL (6.3-8.2)
[2018-05-02 19:38] LABS: Creatine Kinase MB 0.5 ng/mL (0.0-2.4); Troponin I <0.012 ng/mL (0.000-0.034)
[2018-05-02 19:44] LABS: Partial Thromboplastin Time 23.8 sec (22.0-30.0); Prothrombin Time 9.9 sec (9.0-12.0)
--- NOTE | 2018-05-02 20:13 | CT ---
EXAMINATION TYPE: CT abdomen pelvis wo con DATE OF EXAM: 05/02/2018 COMPARISON: None HISTORY: Right flank pain and recent UTI. CT DLP: 754.5 mGycm Automated exposure control for dose reduction was used. TECHNIQUE: Helical acquisition of images was performed from the lung bases through the pelvis. FINDINGS: Lung bases are clear. There is no pleural effusion. Heart size is normal. Liver spleen pancreas gallbladder appear normal. Bile ducts are not dilated. There is no adrenal mass. Kidneys have normal size and contour. There is no hydronephrosis. The urete rs are not dilated. There is no retroperitoneal adenopathy. There are surgical clips from tubal ligation. Bladder distends smoothly. Uterus is anteverted. Lumbar spine appears intact. Appendix appears normal. There is no ascites. There is no sign of free air. Th ere is no evidence of a pelvic mass. IMPRESSION: NORMAL APPENDIX. NO EVIDENCE OF RENAL STONE OR OBSTRUCTION. NO SIGN OF ACUTE ABDOMEN AND PELVIS.
[2018-05-02] MEDS ORDERED: NITROGLYCERIN SL TABS 0.4 MG TAB SUBLINGUAL PRN (20:52)
[2018-05-02] MEDS ORDERED: ONDANSETRON 4 MG/2 ML VIAL IVP PRN (21:25)
[2018-05-02] MEDS ORDERED: MORPHINE SULFATE 2 MG/ML SYRINGE IVP PRN (21:25)
[2018-05-02 21:48] VITALS: BMI 34.7
[2018-05-03 00:06] LABS: Creatine Kinase 71 U/L (30-135)
[2018-05-03 00:19] LABS: Creatine Kinase MB 0.5 ng/mL (0.0-2.4); Troponin I <0.012 ng/mL (0.000-0.034)
[2018-05-03] MEDS: KETOROLAC 30 MG/ML 1 ML VIAL IVP SCH ×4 (00:30→18:09)
[2018-05-03 06:12] LABS: Cholesterol 152 mg/dL (<200); HDL Cholesterol 52 mg/dL (40-60); LDL Cholesterol,Calculated 91 mg/dL (0-99); Triglycerides 44 mg/dL (<150)
[2018-05-03 06:17] LABS: Creatine Kinase 59 U/L (30-135)
[2018-05-03 06:31] LABS: Creatine Kinase MB 0.4 ng/mL (0.0-2.4); Troponin I <0.012 ng/mL (0.000-0.034)
[2018-05-03] MEDS ORDERED: ASPIRIN 325 MG TAB PO SCH (09:00)
--- NOTE | 2018-05-03 12:34 | P.CRDCN ---
History of Present Illness History of present illness: This is Dr. Ramos dictating a consult on this patient The patient was interviewed and examined by me IMPRESSION / ASSESSMENT: Atypical chest discomfort with normal cardiac enzymes normal ECG Lower abdominal, right-sided as well as right flank pain He denies diabetes hypertension dyslipidemia PLAN: Cardiac enzymes which are normal workup and treatment HPI Patient was admitted with abdominal discomfort mostly on the right side as well as to his right flank but later she started complaining of chest discomfort going to the left shoulder and was admitted for observation for cardiac monitoring and evaluation ROS: No fever chills or rigors, no cough, phlegm or expectoration, no nausea, vomiting or diarrhea, no hematuria, dysuria, no musculoskeletal complaints, no strokes or seizures, no skin lesions. EXAMINATION On examination afebrile 97.9F pulse rate in the 60s, blood pressure 114/73 minimal his mercury Breath sounds are clear Heart sounds S1 and S2 are normal no murmurs or gallops no rub Abdomen is soft Extended is warm REVIEW OF LABS, ECG Normal white count normal hemoglobin normal electrolytes normal kidney function Normal cardiac enzymes Normal amylase and lipase LDL 91, HDL 52, total cholesterol 152 and triglycerides 44 Twelve-lead ECG shows sinus rhythm with [address] elevation consistent with early repolarization inferolaterally 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 History of Any Multi-Drug Resistant Organisms: ESBL Date of last positivie culture/infection: 08/13/16 MDRO Source:: urine e.coli ESBL Additional Past Surgical History / Comment(s): sinus and multiple eye surgery Past Anesthesia/Blood Transfusion Reactions: Postoperative Nausea & Vomiting ( PONV) Smoking Status: Never smoker - Past Family History Mother Family Medical History: No Reported History Father Family Medical History: Diabetes Mellitus Additional Family Medical History / Comment(s): Some kind of heart issue. Medications and Allergies Home Medications Medication Instructions Recorded Confirmed Type No Known Home Medications 05/02/18 05/02/18 History Allergies Allergy/AdvReac Type Severity Reaction Status Date / Time No Known Allergies Allergy Verified 05/02/18 21:39 Physical Exam Vitals: Vital Signs Temp Pulse Pulse Resp BP BP Pulse Ox 05/03/18 08:00 97.9 F 64 16 114/73 99 05/03/18 04:00 16 05/03/18 03:45 98.2 F 65 16 114/73 98 05/02/18 23:37 16 05/02/18 21:35 97.4 F L 54 L 16 147/84 100 05/02/18 21:34 98.6 F 81 16 124/80 98 05/02/18 18:15 98.2 F 87 16 129/87 98 05/02/18 17:01 98.5 F 80 20 136/84 100 Intake and Output 05/02/18 05/03/18 05/03/18 22:59 06:59 14:59 Other: Voiding Method Toilet # Voids 1 1 Weight 97.5 kg Results 05/02/18 17:40 05/02/18 17:40 Cardiac Enzymes 05/02/18 05/02/18 05/02/18 Range/Units 17:40 17:40 23:32 AST 15 (14-36) U/L CK-MB (CK-2) 0.5 0.5 (0.0-2.4) ng/mL Troponin I <0.012 <0.012 (0.000-0.034) ng/mL 05/03/18 Range/Units 05:34 AST (14-36) U/L CK-MB (CK-2) 0.4 (0.0-2.4) ng/mL Troponin I <0.012 (0.000-0.034) ng/mL Coagulation 05/02/18 Range/Units 17:40 PT 9.9 (9.0-12.0) sec APTT 23.8 (22.0-30.0) sec Lipids 05/03/18 Range/Units 05:34 Triglycerides 44 (<150) mg/dL Cholesterol 152 (<200) mg/dL HDL Cholesterol 52 (40-60) mg/dL CBC 05/02/18 Range/Units 17:40 WBC 5.2 (3.8-10.6) k/uL RBC 4.14 (3.80-5.40) m/uL Hgb 13.1 (11.4-16.0) gm/dL Hct 38.8 (34.0-46.0) % Plt Count 147 L (150-450) k/uL Comprehensive Metabolic Panel 05/02/18 Range/Units 17:40 Sodium 139 (137-145) mmol/L Potassium 4.1 (3.5-5.1) mmol/L Chloride 107 (98-107) mmol/L Carbon Dioxide 24 (22-30) mmol/L BUN 22 H (7-17) mg/dL Creatinine 0.90 (0.52-1.04) mg/dL Glucose 80 (74-99) mg/dL Calcium 8.7 (8.4-10.2) mg/dL AST 15 (14-36) U/L ALT 22 (9-52) U/L Alkaline Phosphatase 53 (38-126) U/L Total Protein 6.5 (6.3-8.2) g/dL Albumin 3.8 (3.5-5.0) g/dL Current Medications Generic Name Dose Route Start Last Admin Trade Name Freq PRN Reason Stop Dose Admin Aspirin 325 mg 05/03/18 09:00 Aspirin PO DAILY PANTERA Ketorolac Tromethamine 15 mg 05/03/18 00:00 05/03/18 05:12 Toradol IVP 05/06/18 21:24 15 mg Q6HR PANTERA Administration Morphine Sulfate 2 mg 05/02/18 21:25 05/02/18 21:54 Morphine Sulfate (Inj) IVP 2 mg Q6H PRN Administration Pain/Discomfort Nitroglycerin 0.4 mg 05/02/18 20:52 Nitrostat SUBLINGUAL Q5M PRN Chest Pain Ondansetron HCl 4 mg 05/02/18 21:25 Zofran IVP Q6HR PRN Nausea And Vomiting Intake and Output 05/02/18 05/03/18 05/03/18 22:59 06:59 14:59 Other: Voiding Method Toilet # Voids 1 1 Weight 97.5 kg 05/02/18 17:40 05/02/18 17:40
[2018-05-03 16:02] VITALS: BP 109/69; PULSE 61; RESP 16; TEMP 97.9
--- NOTE | 2018-05-03 18:59 | P.HPIM ---
History of Present Illness H&P Date: 05/03/18 Ms. Isidro is a 43-year-old female presents to the emergency department for multiple complaints. Patient was recently treated for a UTI and has completed her antibiotic therapy. In spite of that she is still complains of some lower abdominal discomfort. She states urinary frequency has decreased and she no longer sees blood in the urine. Patient has bilateral back pain around the thoracic area, worse on the right. Patient states she has chronic back pain but states it is somewhat worse than her usual pain. Patient states the pain is constant and radiates around her right side. Patient also complains of right upper quadrant abdominal pain 4 days. She also states this pain is a constant sharp burning pain. Patient is not sure what makes this pain better or worse and rates the pain as a 6 out of 10. Patient also states that today she developed chest pressure. Patient denies any shortness of breath. She denies any sharp pains or radiating pains down the arms. Patient denies any cardiac history or other medical history besides sinus surgery. Patient states the pain started when she was out work. Patient denies having any fevers chills or rigors. No cough no difficulty in breathing. No nausea vomiting or diarrhea. No headaches neck pain. No blurring of vision. No loss of consciousness. No loss of bowel or bladder control. Review of Systems REVIEW OF SYSTEMS: PSYCH: No history of anxiety or depression NEURO:No c/o weakness of the extremties, No facial droop, No speech abnormalities. VASCULAR: Peripheral nervous system within the normal limits no edema HEMATOLOGIC: No history of easy bleeding and bruising . No recent infections . RESPIRATORY: No cough, No SOB, No chest discomfort. IMMUNE: No infections INTEGUMENT: no rashes OPHTHALMOLOGIC: No blurry vision and no eye discharge : As per HPI [employer]OR [employer] WINDING: No bleeding PV CARDIAC: No chest pain , shortness of breath , paroxysmal nocturnal dyspnea MUSCULOSKELETAL : No Aches or pains in the joints or muscles. GI: As per HPI 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 History of Any Multi-Drug Resistant Organisms: ESBL Date of last positivie culture/infection: 08/13/16 MDRO Source:: urine e.coli ESBL Additional Past Surgical History / Comment(s): sinus and multiple eye surgery Past Anesthesia/Blood Transfusion Reactions: Postoperative Nausea & Vomiting ( PONV) Smoking Status: Never smoker - Past Family History Mother Family Medical History: No Reported History Father Family Medical History: Diabetes Mellitus Additional Family Medical History / Comment(s): Some kind of heart issue. Medications and Allergies Home Medications Medication Instructions Recorded Confirmed Type No Known Home Medications 05/02/18 05/02/18 History Allergies Allergy/AdvReac Type Severity Reaction Status Date / Time No Known Allergies Allergy Verified 05/02/18 21:39 Physical Exam Vitals: Vital Signs Temp Pulse Pulse Resp BP BP Pulse Ox 05/03/18 16:00 97.9 F 61 16 109/69 100 05/03/18 12:00 98.4 F 64 14 112/69 98 05/03/18 08:00 97.9 F 64 16 114/73 99 05/03/18 04:00 16 05/03/18 03:45 98.2 F 65 16 114/73 98 05/02/18 23:37 16 05/02/18 21:35 97.4 F L 54 L 16 147/84 100 05/02/18 21:34 98.6 F 81 16 124/80 98 Intake and Output 05/03/18 05/03/18 05/03/18 06:59 14:59 22:59 Other: Voiding Method Toilet Toilet # Voids 1 GENERAL EXAM GEN. APPEARANCE: alert, in no apparent distress HEAD EXAM: atraumatic, normocephalic, normal inspection EYE EXAM: normal appearance, PERRL, EOMI. Absent: scleral icterus, conjunctival injection, periorbital swelling ENT EXAM: normal exam, mucous membranes moist NECK EXAM: normal inspection. Absent: tenderness, meningismus, full ROM, lymphadenopathy RESPIRATORY EXAM: normal lung sounds bilaterally. Absent: respiratory distress , wheezes, rales, rhonchi, stridor CARDIOVASCULAR EXAM: regular rate, normal rhythm, normal heart sounds. Absent : systolic murmur, diastolic murmur, rubs, gallop, clicks GI/ABDOMINAL EXAM: soft, normal bowel sounds. Absent: distended, tenderness, guarding, rebound, rigid EXTREMITIES EXAM: normal inspection, full ROM, normal capillary refill. Absent : tenderness, pedal edema, joint swelling, calf tenderness NEUROLOGICAL EXAM: alert, oriented X3, no focal deficits PSYCHIATRIC EXAM: normal affect, normal mood SKIN EXAM: warm, dry, intact, normal color. Absent: rash Results CBC & Chem 7: 05/02/18 17:40 05/02/18 17:40 Labs: Abnormal Lab Results - Last 24 Hours (Table) 05/02/18 05/02/18 Range/Units 17:40 17:40 Plt Count 147 L (150-450) k/uL BUN 22 H (7-17) mg/dL Microbiology - Last 24 Hours (Table) 05/02/18 17:40 Urine Culture - Preliminary Urine,Voided Thrombosis Risk Factor Assmnt - Choose All That Apply Each Factor Represents 1 point: Age 41-60 years Thrombosis Risk Factor Assessment Total Risk Factor Score: 1 Thrombosis Risk Factor Assessment Level: Low Risk Assessment and Plan Assessment: ASSESSMENT Atypical chest pain Lower abdominal pain History of asthma History of recent UTI Plan: Patient had serial troponins and EKGs that were within normal limits. CT of the abdomen and pelvis with no evidence of renal stone or obstruction. Urinalysis negative for leukocyte esterase and WBCs or nitrates. No need for antibiotics. Patient had urine cultures drawn and will follow up on it. Cardiology has evaluated the patient and okay for discharge. Patient is being discharged home in a stable condition to have follow-up with his PCP. She does not have a PCP so given the Dr. Mathew's office address.
--- NOTE | 2018-05-03 19:01 | P.DS ---
Providers Date of admission: 05/02/18 20:59 Expected date of discharge: 05/03/18 Attending physician: Poornima Mcarthur Consults: 05/02/18 20:52 Consult Physician Urgent Consulting Provider: Marcello Steiner Consult Reason/Comments: unstable angina, chest pressure Do you want consulting provider notified?: Yes Primary care physician: Stated None Hospital Course: Ms. Isidro is a 43-year-old female presents to the emergency department for multiple complaints. Patient was recently treated for a UTI and has completed her antibiotic therapy. In spite of that she is still complains of some lower abdominal discomfort. She states urinary frequency has decreased and she no longer sees blood in the urine. Patient has bilateral back pain around the thoracic area, worse on the right. Patient states she has chronic back pain but states it is somewhat worse than her usual pain. Patient states the pain is constant and radiates around her right side. Patient also complains of right upper quadrant abdominal pain 4 days. She also states this pain is a constant sharp burning pain. Patient is not sure what makes this pain better or worse and rates the pain as a 6 out of 10. Patient also states that today she developed chest pressure. Patient denies any shortness of breath. She denies any sharp pains or radiating pains down the arms. Patient denies any cardiac history or other medical history besides sinus surgery. Patient states the pain started when she was out work. Patient denies having any fevers chills or rigors. No cough no difficulty in breathing. No nausea vomiting or diarrhea. No headaches neck pain. No blurring of vision. No loss of consciousness. No loss of bowel or bladder control. Discharge diagnosis Atypical chest pain Lower abdominal pain History of asthma History of recent UTI Plan: Patient had serial troponins and EKGs that were within normal limits. CT of the abdomen and pelvis with no evidence of renal stone or obstruction. Urinalysis negative for leukocyte esterase and WBCs or nitrates. No need for antibiotics. Patient had urine cultures drawn and will follow up on it. Cardiology has evaluated the patient and okay for discharge. Patient is being discharged home in a stable condition to have follow-up with his PCP. She does not have a PCP so given the Dr. Mathew's office address. Patient Condition at Discharge: Good Plan - Discharge Summary New Discharge Prescriptions: Continue No Known Home Medications Discharge Medication List No Known Home Medications 05/02/18 [History] Follow up Appointment(s)/Referral(s): Davon Mathew MD [STAFF PHYSICIAN] - 1 Week Patient Instructions/Handouts: Chest Pain (GEN), Urinary Tract Infection in Women (GEN) Discharge Disposition: HOME SELF-CARE
== END 2018-05-03 18:23 | disposition home or self-care (01) ==
LOC: EC 16:41 → 3OBS 20:59
PROVIDERS: ADMIT Hospitalist; ATTEND Hospitalist
DX: R07.89 Other chest pain (principal); R10.30 Lower abdominal pain, unspecified; R10.31 Right lower quadrant pain; J45.909 Unspecified asthma, uncomplicated; Z87.440 Personal history of urinary (tract) infections; G89.29 Other chronic pain; M54.9 Dorsalgia, unspecified; R10.11 Right upper quadrant pain; Z16.12 Extended spectrum beta lactamase (ESBL) resistance; F41.9 Anxiety disorder, unspecified; F32.9 Major depressive disorder, single episode, unspecified; Z83.3 Family history of diabetes mellitus; Z82.49 Family history of ischemic heart disease and other diseases of the circulatory system; Z86.61 Personal history of infections of the central nervous system
CPT/HCPCS: 99285; 96374 ×2; 96361 ×2; 96375; 96376; 36415; 93005; 80061; 80053; 82150; 82550 ×2; 82553 ×2; 83690; 83735; 84484 ×2; 85025; 85610; 85730; 81003; 81025; 87040; 87086; 71046; 74176; G0378 ×2; J1885 ×2; J2270

== ENCOUNTER 2018-07-15 17:23 | Emergency (ER) | payer BC, OTHER ==
[2018-07-15 17:30] VITALS: RESP 16
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
[2018-07-15] MEDS ORDERED: SODIUM CHLORIDE 0.9% 1,000 ML IV STA (18:12)
[2018-07-15 18:52] LABS: Basophils # (A) 0.1 k/uL (0-0.2); Basophils % (A) 1 %; Eosinophils # (A) 0.2 k/uL (0-0.7); Eosinophils % (A) 3 %; HGB 12.5 gm/dL (11.4-16.0); Lymphocytes # (A) 1.3 k/uL (1.0-4.8); Lymphocytes % (A) 27 %; MCH 29.9 pg (25.0-35.0); MCHC 32.1 g/dL (31.0-37.0); MCV 92.9 fL (80.0-100.0); Mean Platelet Volume 8.2; Monocytes # (A) 0.2 k/uL (0-1.0); Monocytes % (A) 4 %; Neutrophils # (A) 3.2 k/uL (1.3-7.7); Neutrophils % (A) 64 %; Platelet Count 174 k/uL (150-450); RBC 4.19 m/uL (3.80-5.40); RDW 12.7 % (11.5-15.5)
[2018-07-15 19:10] LABS: ALT 19 U/L (9-52); AST 21 U/L (14-36); Albumin 3.7 g/dL (3.5-5.0); Alkaline Phosphatase 58 U/L (38-126); Anion Gap 5 mmol/L; Blood Urea Nitrogen 15 mg/dL (7-17); Carbon Dioxide 25 mmol/L (22-30); Chloride 109 mmol/L (98-107); Glucose 113 mg/dL (74-99); Potassium 4.1 mmol/L (3.5-5.1); Sodium 139 mmol/L (137-145); Total Bilirubin 0.7 mg/dL (0.2-1.3); Total Protein 6.5 g/dL (6.3-8.2)
[2018-07-15 19:15] LABS: Partial Thromboplastin Time 24.6 sec (22.0-30.0); Prothrombin Time 10.1 sec (9.0-12.0)
[2018-07-15 19:18] LABS: Creatine Kinase 151 U/L (30-135)
[2018-07-15 19:32] LABS: Creatine Kinase MB 1.5 ng/mL (0.0-2.4); Troponin I <0.012 ng/mL (0.000-0.034)
[2018-07-15 20:44] VITALS: BP 137/76; PULSE 54; TEMP 98.2
== END 2018-07-15 20:44 | disposition home or self-care (01) ==
LOC: EC 17:23
DX: R55 Syncope and collapse (principal); R00.1 Bradycardia, unspecified; R20.2 Paresthesia of skin
CPT/HCPCS: 36415; 80053; 82375; 82550; 82553; 84484; 85025; 85610; 85730; 93005; 99284

== ENCOUNTER 2018-09-24 16:14 | Emergency (ER) | payer BC, OTHER ==
[2018-09-24 16:29] VITALS: BP 146/77; PULSE 72; RESP 18; TEMP 98.7
--- NOTE | 2018-09-24 17:03 | ED ---
General Adult HPI - General Chief complaint: ENT Stated complaint: ear infection Source: patient, RN notes reviewed Mode of arrival: ambulatory Limitations: no limitations - History of Present Illness Initial comments: Patient is a 43-year-old female who presents emergency department with complaint of bilateral ear pain for 2 days. She reports that she recently got over a cold. Patient denies any recent fever, chills, cough, shortness of breath , chest pain, back pain, abdominal pain, numbness or tingling, headaches or visual changes, or any other complaints. - Related Data Home Medications Medication Instructions Recorded Confirmed Cranberry Fruit Extract [Cranberry] 200 mg PO DAILY PRN 07/15/18 07/15/18 Previous Rx's Medication Instructions Recorded Amoxicillin 1,000 mg PO Q8H 10 Days day 09/24/18 Phenylephrine HCl [Sudafed PE] 10 mg PO Q4H PRN 7 Days tablet 09/24/18 Allergies Allergy/AdvReac Type Severity Reaction Status Date / Time No Known Allergies Allergy Verified 07/15/18 18:06 Review of Systems ROS Statement: Those systems with pertinent positive or pertinent negative responses have been documented in the HPI. ROS Other: All systems not noted in ROS Statement are negative. 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 History of Any Multi-Drug Resistant Organisms: ESBL Date of last positivie culture/infection: 08/13/16 MDRO Source:: urine e.coli ESBL Additional Past Surgical History / Comment(s): sinus and multiple eye surgery Past Anesthesia/Blood Transfusion Reactions: Postoperative Nausea & Vomiting ( PONV) Past Psychological History: Anxiety, Depression Smoking Status: Never smoker Past Alcohol Use History: None Reported Past Drug Use History: None Reported - Past Family History Mother Family Medical History: No Reported History Father Family Medical History: Diabetes Mellitus Additional Family Medical History / Comment(s): Some kind of heart issue. General Exam Limitations: no limitations General appearance: alert, in no apparent distress Head exam: Present: atraumatic, normocephalic Eye exam: Present: normal appearance ENT exam: Present: normal oropharynx, normal external ear exam, other (Right TM is bulging.) Respiratory exam: Present: normal lung sounds bilaterally Cardiovascular Exam: Present: regular rate, normal rhythm Neurological exam: Present: alert, oriented X3 Psychiatric exam: Present: normal affect, normal mood Course Vital Signs 09/24/18 09/24/18 16:26 17:51 Temperature 98.7 F 98.7 F Pulse Rate 72 72 Respiratory 18 18 Rate Blood Pressure 146/77 146/77 O2 Sat by Pulse 100 100 Oximetry Medical Decision Making - Medical Decision Making Will prescribe amoxicillin and phenylephrine. Case discussed in detail with attending physician Dr. Greenberg. Disposition Clinical Impression: Otitis media Disposition: HOME SELF-CARE Condition: Good Instructions: Ear Infection (ED) Additional Instructions: Follow-up with your PCP in 1 to 2 days. Take Amoxicillin as prescribed. Return to the emergency department if your symptoms worsen or any other concerns. Prescriptions: Amoxicillin 1,000 mg PO Q8H 10 Days day Phenylephrine HCl [Sudafed PE] 10 mg PO Q4H PRN 7 Days tablet PRN Reason: Congestion Is patient prescribed a controlled substance at d/c from ED?: No Referrals: None,Stated [Primary Care Provider] - 1-2 days Jazzmine Babb MD [STAFF PHYSICIAN] - 1-2 days Time of Disposition: 17:36
== END 2018-09-24 17:51 | disposition home or self-care (01) ==
LOC: EC 16:14
DX: H66.91 Otitis media, unspecified, right ear (principal); H92.02 Otalgia, left ear
CPT/HCPCS: 99282

== ENCOUNTER 2018-10-30 11:22 | Emergency (ER) | payer BC ==
[2018-10-30 11:26] VITALS: RESP 18
--- NOTE | 2018-10-30 11:35 | ED ---
URI HPI - General Chief Complaint: Upper Respiratory Infection Stated Complaint: Cough, sore throat Time Seen by Provider: 10/30/18 11:30 Source: patient, RN notes reviewed Mode of arrival: ambulatory Limitations: no limitations - History of Present Illness Initial Comments: 43-year-old female presented emergency department with chief complaint of cough congestion for 1 week. No fever no chills no body aches. She has mild nasal congestion no sore throat no ear pain. Patient states she does have underlying asthma. Patient states she has not been taking any [id number] cough and cold medications. - Related Data Previous Rx's Medication Instructions Recorded Azithromycin [Zithromax Z-pack] 0 mg PO DIRECTED #1 pack 10/30/18 predniSONE 50 mg PO DAILY #5 tab 10/30/18 Allergies Allergy/AdvReac Type Severity Reaction Status Date / Time No Known Allergies Allergy Verified 10/30/18 11:54 Review of Systems ROS Statement: Those systems with pertinent positive or pertinent negative responses have been documented in the HPI. ROS Other: All systems not noted in ROS Statement are negative. 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 History of Any Multi-Drug Resistant Organisms: ESBL Date of last positivie culture/infection: 08/13/16 MDRO Source:: urine e.coli ESBL Additional Past Surgical History / Comment(s): sinus and multiple eye surgery Past Anesthesia/Blood Transfusion Reactions: Postoperative Nausea & Vomiting ( PONV) Past Psychological History: Anxiety, Depression Smoking Status: Never smoker Past Alcohol Use History: None Reported Past Drug Use History: None Reported - Past Family History Mother Family Medical History: No Reported History Father Family Medical History: Diabetes Mellitus Additional Family Medical History / Comment(s): Some kind of heart issue. General Exam Limitations: no limitations General appearance: alert, in no apparent distress Head exam: Present: atraumatic, normocephalic, normal inspection Eye exam: Present: normal appearance, PERRL, EOMI. Absent: scleral icterus, conjunctival injection, periorbital swelling ENT exam: Present: normal exam, normal oropharynx, mucous membranes moist, TM's normal bilaterally Neck exam: Present: normal inspection, full ROM. Absent: tenderness, meningismus, lymphadenopathy Respiratory exam: Present: wheezes (Faint). Absent: normal lung sounds bilaterally, respiratory distress, rales, rhonchi, stridor Cardiovascular Exam: Present: regular rate, normal rhythm, normal heart sounds. Absent: systolic murmur, diastolic murmur, rubs, gallop, clicks Back exam: Absent: CVA tenderness (R), CVA tenderness (L) Skin exam: Present: warm, dry, intact, normal color. Absent: rash Course Vital Signs 10/30/18 11:23 Temperature 98.2 F Pulse Rate 69 Respiratory 18 Rate Blood Pressure 142/80 O2 Sat by Pulse 97 Oximetry Medical Decision Making - Medical Decision Making 43-year-old female presented emergency from for cough congestion. Chest x-ray was obtained no acute abnormality. Patient has acute asthmatic bronchitis be given steroids and azithromycin. Patient will follow-up PCP return for any worsening symptoms. Disposition Clinical Impression: Asthmatic bronchitis Disposition: HOME SELF-CARE Condition: Stable Instructions (If sedation given, give patient instructions): Upper Respiratory Infection (ED) Additional Instructions: Please return to the Emergency Department if symptoms worsen or any other concerns. Prescriptions: Azithromycin [Zithromax Z-pack] 0 mg PO DIRECTED #1 pack predniSONE 50 mg PO DAILY #5 tab Is patient prescribed a controlled substance at d/c from ED?: No Referrals: None,Stated [Primary Care Provider] - 1-2 days Time of Disposition: 12:38
--- NOTE | 2018-10-30 11:51 | XR ---
EXAMINATION TYPE: XR chest 2V DATE OF EXAM: 10/30/2018 COMPARISON: 05/02/2018 TECHNIQUE: PA and lateral views submitted. HISTORY: Cough FINDINGS: The lungs are clear and there is no pneumothorax, pleural effusion, or focal pneumonia. No overt fa ilure. Hypertrophic change of the vertebral column. IMPRESSION: 1. No acute process.
[2018-10-30 12:46] VITALS: BP 124/84; PULSE 64; TEMP 37.1
== END 2018-10-30 12:46 | disposition home or self-care (01) ==
LOC: EC 11:22
DX: J45.909 Unspecified asthma, uncomplicated (principal)
CPT/HCPCS: 71046; 99283

== ENCOUNTER 2019-03-25 21:02 | Emergency (ER) | payer BC ==
[2019-03-25 21:07] VITALS: BP 152/92; PULSE 80; RESP 16; TEMP 97.9
[2019-03-25 21:49] LABS: Appearance,Urine Cloudy (Clear); Bilirubin,Urine Negative (Negative); Blood,Urine Large (Negative); Color,Urine Light Red; Glucose,Urine (UA) Negative (Negative); Ketones,Urine Negative (Negative); Leukocyte Esterase,Urine Large (Negative); Mucus,Urine Few /hpf; Nitrite,Urine Negative (Negative); Protein,Urine 2+ (Negative); RBC,Urine >182 /hpf (0-5); Specific Gravity,Urine 1.013 (1.001-1.035); Squamous Epithelial Cell,Urine 4 /hpf (0-4); Urobilinogen,Urine <2.0 mg/dL (<2.0); WBC,Urine >182 /hpf (0-5)
[2019-03-25] MEDS ORDERED: cefTRIAXone 1,000 MG VIAL (IM USE) IM STA (21:56)
[2019-03-25] MEDS ORDERED: CEPHALEXIN 500MG STARTER PACK 4 CAP BTL PO STA (21:57)
--- NOTE | 2019-03-25 22:07 | ED ---
General Adult HPI - General Chief complaint: Urogenital Stated complaint: Female Time Seen by Provider: 03/25/19 21:08 Source: patient, RN notes reviewed, old records reviewed Mode of arrival: ambulatory Limitations: no limitations - History of Present Illness Initial comments: 43-year-old female patient with no pertinent past medical history presents to ED with 1 day dysuria. Patient put burning urination. Patient also reports some mild suprapubic discomfort. Denies any other areas of abdominal pain. Denies any systemic symptoms. Denies any fevers chills nausea vomiting diarrhea. Denies other complaints. Systemic: Pt denies fatigue, fever/chills, rash. Pt denies weakness, night sweats, weight loss. Neuro: Pt denies headache, visual disturbances, syncope or pre-syncope. HEENT: Pt denies ocular discharge or irritation, otalgia, rhinorrhea, pharyngitis or notable lymphadenopathy. Cardiopulmonary: Pt denies chest pain, SOB, heart palpitations, dyspnea on exertion. Abdominal/GI: Pt denies abdominal pain, n/v/d. : Pt denies dysuria, burning w/ urination, frequency/urgency. Denies new onset urinary or bowel incontinence. MSK: Pt denies myalgia, loss of strength or function in extremities. Neuro: Pt denies new onset weakness, paresthesias. - Related Data Previous Rx's Medication Instructions Recorded Cephalexin [Keflex] 500 mg PO Q12HR 10 Days cap 03/25/19 Allergies Allergy/AdvReac Type Severity Reaction Status Date / Time No Known Allergies Allergy Verified 03/25/19 21:18 Review of Systems ROS Statement: Those systems with pertinent positive or pertinent negative responses have been documented in the HPI. ROS Other: All systems not noted in ROS Statement are negative. 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 History of Any Multi-Drug Resistant Organisms: ESBL Date of last positivie culture/infection: 08/13/16 MDRO Source:: urine e.coli ESBL Additional Past Surgical History / Comment(s): sinus and multiple eye surgery Past Anesthesia/Blood Transfusion Reactions: Postoperative Nausea & Vomiting (PONV) Past Psychological History: Anxiety, Depression Smoking Status: Never smoker Past Alcohol Use History: None Reported Past Drug Use History: None Reported - Past Family History Mother Family Medical History: No Reported History Father Family Medical History: Diabetes Mellitus Additional Family Medical History / Comment(s): Some kind of heart issue. General Exam - General Exam Comments Initial Comments: Constitutional: NAD, AOX3, Pt has pleasant affect. HEENT: NC/AT, trachea midline, neck supple, no lymphadenopathy. Posterior pharynx non erythematous, without exudates. External ears appear normal, without discharge. Mucous membranes moist. Eyes PERRLA, EOM intact. There is no scleral icterus. No pallor noted. Cardiopulmonary: RRR, no murmurs, rubs or gallops, no JVD noted. Lungs CTAB in anterior and posterior moser. No peripheral edema. Abdominal exam: Abdomen soft and non-distended. Abdomen mildly tender to palpation in suprapubic region, no other areas of abdominal tenderness. Bowel sounds active in LLQ. No hepatosplenomegaly. No ecchymosis Neuro: CN II-XII grossly intact. No nuchal rigidity. No raccon eyes, no krishnan sign, no hemotympanum. No cervical spinal tenderness. MSK: No posterior calf tenderness bilaterally, homans sign negative bilaterally. Posterior tibialis and radial pulse +2 bilaterally. Sensation intact in upper and lower extremities. Full active ROM in upper and lower extremities, 5/5 stregnth. Limitations: no limitations Course Vital Signs 03/25/19 21:04 Temperature 97.9 F Pulse Rate 80 Respiratory 16 Rate Blood Pressure 152/92 O2 Sat by Pulse 97 Oximetry Medical Decision Making - Medical Decision Making 43-year-old female patient with the chief complaint of dysuria. Patient fell signs stable, afebrile. Physical exam displayed mild suprapubic tenderness. No other areas of abdominal tenderness. Laboratory investigations revealed urinary tract infection, negative hCG. Patient treated for UTI, follow up with primary care provider. Culture pending. Case discussed with Dr. Valderrama. - Lab Data Lab Results 03/25/19 03/25/19 Range/Units 21:25 21:25 Urine Color Light Red Urine Appearance Cloudy H (Clear) Urine pH 6.0 (5.0-8.0) Ur Specific [place] 1.013 (1.001-1.035) Urine Protein 2+ H (Negative) Urine Glucose (UA) Negative (Negative) Urine Ketones Negative (Negative) Urine Blood Large H (Negative) Urine Nitrite Negative (Negative) Urine Bilirubin Negative (Negative) Urine Urobilinogen <2.0 (<2.0) mg/dL Ur Leukocyte Esterase Large H (Negative) Urine RBC >182 H (0-5) /hpf Urine WBC >182 H (0-5) /hpf Urine WBC Clumps Many H (None) /hpf Ur Squamous Epith Cells 4 (0-4) /hpf Urine Mucus Few H (None) /hpf Urine HCG, Qual Not Detected (Not Detectd) Disposition Clinical Impression: UTI (urinary tract infection) Disposition: HOME SELF-CARE Condition: Stable Instructions (If sedation given, give patient instructions): Urinary Tract Infection in Women (ED) Additional Instructions: Patient to adhere to previously discussed treatment plan and will take medication(s) as directed. Patient to follow up with PCP in 1-2 days. Patient to return to ED if symptoms do not improve. Follow-up with primary care provider tomorrow. Return to ER if condition worsens. Prescriptions: Cephalexin [Keflex] 500 mg PO Q12HR 10 Days cap Is patient prescribed a controlled substance at d/c from ED?: No Referrals: None,Stated [Primary Care Provider] - 1-2 days
== END 2019-03-25 22:20 | disposition home or self-care (01) ==
LOC: EC 21:02
DX: N39.0 Urinary tract infection, site not specified (principal); Z32.02 Encounter for pregnancy test, result negative
CPT/HCPCS: 81001; 81025; 87086; 99284; 96372; J0696

== ENCOUNTER 2019-04-24 16:26 | Emergency (ER) | payer BC ==
[2019-04-24 16:31] VITALS: RESP 18
[2019-04-24 17:00] LABS: Appearance,Urine Cloudy (Clear); Bilirubin,Urine Negative (Negative); Blood,Urine Small (Negative); Color,Urine Yellow; Glucose,Urine (UA) Negative (Negative); Ketones,Urine Negative (Negative); Leukocyte Esterase,Urine Large (Negative); Mucus,Urine Many /hpf; Nitrite,Urine Negative (Negative); PH, Urine 5.5 (5.0-8.0); Protein,Urine 1+ (Negative); RBC,Urine 14 /hpf (0-5); Specific Gravity,Urine 1.025 (1.001-1.035); Squamous Epithelial Cell,Urine 40 /hpf (0-4); Urobilinogen,Urine <2.0 mg/dL (<2.0); WBC,Urine 157 /hpf (0-5)
[2019-04-24] MEDS ORDERED: cefTRIAXone 1,000 MG VIAL (IM USE) IM STA (17:06)
--- NOTE | 2019-04-24 17:27 | ED ---
General Adult HPI - General Chief complaint: Urogenital Stated complaint: UTI Time Seen by Provider: 04/24/19 16:35 Source: patient, RN notes reviewed, old records reviewed Mode of arrival: ambulatory Limitations: language barrier - History of Present Illness Initial comments: 44-year-old female patient presents to ED chief complaint of 2 days of dysuria, small amount of blood noted intermittently in urine. Patient does report for UTIs. Patient is that she is not . Patient denies any concern of STI, patient denies any other pain. Denies any other complaints. Systemic: Pt denies fatigue, fever/chills, rash. Pt denies weakness, night sweats, weight loss. Neuro: Pt denies headache, visual disturbances, syncope or pre-syncope. HEENT: Pt denies ocular discharge or irritation, otalgia, rhinorrhea, pharyngitis or notable lymphadenopathy. Cardiopulmonary: Pt denies chest pain, SOB, heart palpitations, dyspnea on exertion. Abdominal/GI: Pt denies abdominal pain, n/v/d. : Pt denies dysuria, burning w/ urination, frequency/urgency. Denies new onset urinary or bowel incontinence. MSK: Pt denies myalgia, loss of strength or function in extremities. Neuro: Pt denies new onset weakness, paresthesias. - Related Data Previous Rx's Medication Instructions Recorded Cephalexin [Keflex] 500 mg PO Q12HR 10 Days cap 03/25/19 Cephalexin [Keflex] 500 mg PO Q12HR 10 Days cap 04/24/19 Allergies Allergy/AdvReac Type Severity Reaction Status Date / Time No Known Allergies Allergy Verified 04/24/19 16:29 Review of Systems ROS Statement: Those systems with pertinent positive or pertinent negative responses have been documented in the HPI. ROS Other: All systems not noted in ROS Statement are negative. 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 History of Any Multi-Drug Resistant Organisms: ESBL Date of last positivie culture/infection: 08/13/16 MDRO Source:: urine e.coli ESBL Additional Past Surgical History / Comment(s): sinus and multiple eye surgery Past Anesthesia/Blood Transfusion Reactions: Postoperative Nausea & Vomiting (PONV) Past Psychological History: Anxiety, Depression Smoking Status: Never smoker Past Alcohol Use History: None Reported Past Drug Use History: None Reported - Past Family History Mother Family Medical History: No Reported History Father Family Medical History: Diabetes Mellitus Additional Family Medical History / Comment(s): Some kind of heart issue. General Exam - General Exam Comments Initial Comments: Constitutional: NAD, AOX3, Pt has pleasant affect. HEENT: NC/AT, trachea midline, neck supple, no lymphadenopathy. Posterior pharynx non erythematous, without exudates. External ears appear normal, without discharge. Mucous membranes moist. Eyes PERRLA, EOM intact. There is no scleral icterus. No pallor noted. Cardiopulmonary: RRR, no murmurs, rubs or gallops, no JVD noted. Lungs CTAB in anterior and posterior moser. No peripheral edema. Abdominal exam: Abdomen soft and non-distended. Abdomen non-tender to palpation in all 4 quadrants. Bowel sounds active in LLQ. No hepatosplenomegaly. No ecchymosis Neuro: CN II-XII grossly intact. No nuchal rigidity. No raccon eyes, no krishnan sign, no hemotympanum. No cervical spinal tenderness. MSK: No posterior calf tenderness bilaterally, homans sign negative bilaterally. Posterior tibialis and radial pulse +2 bilaterally. Sensation intact in upper and lower extremities. Full active ROM in upper and lower extremities, 5/5 stregnth. Limitations: language barrier Course Vital Signs 04/24/19 16:27 Temperature 98.8 F Pulse Rate 89 Respiratory 18 Rate Blood Pressure 124/86 O2 Sat by Pulse 99 Oximetry Medical Decision Making - Medical Decision Making 44-year-old female patient presents today for chief complaint of frequency, dysuria. Patient vital stable, afebrile. UA displayed UTI. Urine will be cultured, patient will be initiated on Keflex, patient will follow-up with urology for evaluation of frequent UTIs. Case discussed with Dr. Martínez. - Lab Data Lab Results 04/24/19 04/24/19 Range/Units 16:51 16:51 Urine Color Yellow Urine Appearance Cloudy H (Clear) Urine pH 5.5 (5.0-8.0) Ur Specific [place] 1.025 (1.001-1.035) Urine Protein 1+ H (Negative) Urine Glucose (UA) Negative (Negative) Urine Ketones Negative (Negative) Urine Blood Small H (Negative) Urine Nitrite Negative (Negative) Urine Bilirubin Negative (Negative) Urine Urobilinogen <2.0 (<2.0) mg/dL Ur Leukocyte Esterase Large H (Negative) Urine RBC 14 H (0-5) /hpf Urine WBC 157 H (0-5) /hpf Ur Squamous Epith Cells 40 H (0-4) /hpf Urine Mucus Many H (None) /hpf Urine HCG, Qual Not Detected (Not Detectd) Disposition Clinical Impression: UTI (urinary tract infection) Disposition: HOME SELF-CARE Condition: Stable Instructions (If sedation given, give patient instructions): Urinary Tract Infection in Women (ED) Additional Instructions: Patient to adhere to previously discussed treatment plan and will take medication(s) as directed. Patient to follow up with PCP in 1-2 days. Patient to return to ED if symptoms do not improve. Take medications as directed follow with urologist tomorrow. Return to ER if condition worsens. Prescriptions: Cephalexin [Keflex] 500 mg PO Q12HR 10 Days cap Is patient prescribed a controlled substance at d/c from ED?: No Referrals: None,Stated [Primary Care Provider] - 1-2 days [facility] Alia vega [NON-STAFF] - 1-2 days Joseluis Alfaro MD [STAFF PHYSICIAN] - 1-2 days
[2019-04-24 17:50] VITALS: BP 109/82; PULSE 72; TEMP 98
== END 2019-04-24 17:52 | disposition home or self-care (01) ==
LOC: EC 16:26
DX: N39.0 Urinary tract infection, site not specified (principal)
CPT/HCPCS: 81001; 81025; 99284; 96372; J0696

== ENCOUNTER 2019-11-03 12:00 | Emergency (ER) | payer BC ==
--- NOTE | 2019-11-03 14:43 | ED ---
ENT HPI - General Chief complaint: ENT Stated complaint: throat Time Seen by Provider: 11/03/19 12:40 Source: patient Mode of arrival: ambulatory Limitations: no limitations - History of Present Illness Initial comments: Patient is a 44-year-old female presenting to emergency Department with complaints of a sore throat that has been increasing over the past 3 days. She denies fever, chills. She does admit to nasal drainage as well as a mild cough. She's been taking Tylenol and Motrin for sore throat without improvement. She denies chest pain, short of breath, abdominal pain she denies ear pain. She has no other complaints at this time. Upon arrival to the ER her vitals are stable. - Related Data Previous Rx's Medication Instructions Recorded Cephalexin [Keflex] 500 mg PO Q12HR 10 Days cap 03/25/19 Cephalexin [Keflex] 500 mg PO Q12HR 10 Days cap 04/24/19 predniSONE [Deltasone] 20 mg PO BID 5 Days #10 tab 11/03/19 Allergies Allergy/AdvReac Type Severity Reaction Status Date / Time No Known Allergies Allergy Verified 11/03/19 12:20 Review of Systems ROS Statement: Those systems with pertinent positive or pertinent negative responses have been documented in the HPI. ROS Other: All systems not noted in ROS Statement are negative. 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 History of Any Multi-Drug Resistant Organisms: ESBL Date of last positivie culture/infection: 08/13/16 MDRO Source:: urine e.coli ESBL Additional Past Surgical History / Comment(s): sinus and multiple eye surgery Past Anesthesia/Blood Transfusion Reactions: Postoperative Nausea & Vomiting (PONV) Past Psychological History: Anxiety, Depression Smoking Status: Never smoker Past Alcohol Use History: None Reported Past Drug Use History: None Reported - Past Family History Mother Family Medical History: No Reported History Father Family Medical History: Diabetes Mellitus Additional Family Medical History / Comment(s): Some kind of heart issue. General Exam - General Exam Comments Initial Comments: GENERAL: Well-appearing, well-nourished and in no acute distress. HEAD: Atraumatic, normocephalic. EYES: Pupils equal round and reactive to light, extraocular movements intact, sclera anicteric, conjunctiva are normal. ENT: TMs normal, nares patent, oropharynx clear without exudates. Moist mucous membranes. NECK: Normal range of motion, supple without lymphadenopathy or JVD. LUNGS: Breath sounds clear to auscultation bilaterally and equal. No wheezes rales or rhonchi. HEART: Regular rate and rhythm without murmurs, rubs or gallops. ABDOMEN: Soft, nontender, normoactive bowel sounds. No guarding, no rebound. No masses appreciated. : Deferred EXTREMITIES: Normal range of motion, no pitting or edema. No clubbing or cyanosis. NEUROLOGICAL: Normal speech, normal gait. PSYCH: Normal mood, normal affect. SKIN: Warm, Dry, normal turgor, no rashes or lesions noted. Limitations: no limitations Course Vital Signs 11/03/19 11/03/19 12:16 14:50 Temperature 98.1 F 98.9 F Pulse Rate 70 80 Respiratory 20 18 Rate Blood Pressure 122/92 131/86 O2 Sat by Pulse 99 100 Oximetry Medical Decision Making - Medical Decision Making Patient is a 44-year-old female with sore throat 3 days. Vitals are stable. Strep and influenza are both negative. I discussed with patient this is likely viral nature. Patient will be given course of steroids. She'll continue with Tylenol or Aleve as needed for pain. She'll follow up with her PCP. Work note given. She is stable for discharge. - Lab Data Lab Results 11/03/19 11/03/19 Range/Units 13:15 13:15 Influenza Type A RNA Not Detected (Not Detectd) Influenza Type B (PCR) Not Detected (Not Detectd) Group A Strep Rapid Negative (Negative) Disposition Clinical Impression: Acute viral pharyngitis Disposition: HOME SELF-CARE Condition: Stable Instructions (If sedation given, give patient instructions): Pharyngitis (ED) Additional Instructions: Please return to the Emergency Department if symptoms worsen or any other concerns. Take steroids as prescribed. May use Tylenol or Motrin for pain relief. Follow-up with PCP as symptoms persist. Prescriptions: predniSONE [Deltasone] 20 mg PO BID 5 Days #10 tab Is patient prescribed a controlled substance at d/c from ED?: No Referrals: None,Stated [Primary Care Provider] - 1-2 days
[2019-11-03 14:56] VITALS: BP 131/86; PULSE 80; RESP 18; TEMP 98.9
== END 2019-11-03 14:50 | disposition home or self-care (01) ==
LOC: EC 12:00
DX: J02.8 Acute pharyngitis due to other specified organisms (principal); B97.89 Other viral agents as the cause of diseases classified elsewhere; Z87.09 Personal history of other diseases of the respiratory system
CPT/HCPCS: 87081; 87430; 87502; 99283

== ENCOUNTER 2019-11-14 19:28 | Emergency (ER) | payer BC ==
[2019-11-14] MEDS ORDERED: FAMOTIDINE 20 MG/2 ML VIAL IV STA (20:11)
[2019-11-14] MEDS ORDERED: SODIUM CHLORIDE 0.9% 1,000 ML IV STA (20:11)
--- NOTE | 2019-11-14 20:16 | ED ---
General Adult HPI - General Chief complaint: Chest Pain Stated complaint: Chest pain Time Seen by Provider: 11/14/19 19:58 Source: patient Mode of arrival: ambulatory Limitations: no limitations - History of Present Illness Initial comments: 44-year-old female patient presents to the emergency department today for evaluation of left upper chest pain radiating through to the back. Patient states she's had symptoms for the last couple of days. She is reporting shortness of breath with this. She has had cough and upper respiratory symptoms for a little over a week. States she is coughing up green sputum. Denies hemoptysis. Patient was treated with steroids which did seem to improve symptoms somewhat. Patient denies any nausea or vomiting but states that she has been having acid reflux. States that she does have history of acid reflux on and off but nothing this severe or persistent. Patient is reporting right calf tenderness and pain. She denies any use of hormonal medications are control. Denies any recent travel. Denies history of blood clots. Patient denies any history of medical problems. States she does have a family history of cardiac disease which is unsure exactly which condition. Patient denies any recent rash, fever, chills, abdominal pain, nausea, vomiting, diarrhea, constipation, back pain, numbness, tingling, dizziness, weakness, hematuria, dysuria, urinary urgency, urinary frequency, headache, visual changes, or any other complaints. - Related Data Previous Rx's Medication Instructions Recorded Cephalexin [Keflex] 500 mg PO Q12HR 10 Days cap 03/25/19 Cephalexin [Keflex] 500 mg PO Q12HR 10 Days cap 04/24/19 predniSONE [Deltasone] 20 mg PO BID 5 Days #10 tab 11/03/19 Allergies Allergy/AdvReac Type Severity Reaction Status Date / Time No Known Allergies Allergy Verified 11/14/19 19:36 Review of Systems ROS Statement: Those systems with pertinent positive or pertinent negative responses have been documented in the HPI. ROS Other: All systems not noted in ROS Statement are negative. Past Medical History Past Medical History: Asthma, GERD/Reflux Additional Past Medical History / Comment(s): SPINAL meningitis History of Any Multi-Drug Resistant Organisms: ESBL Date of last positivie culture/infection: 08/13/16 MDRO Source:: urine e.coli ESBL Additional Past Surgical History / Comment(s): sinus and multiple eye surgery Past Anesthesia/Blood Transfusion Reactions: Postoperative Nausea & Vomiting (PONV) Past Psychological History: Anxiety, Depression Smoking Status: Never smoker Past Alcohol Use History: None Reported Past Drug Use History: None Reported - Past Family History Mother Family Medical History: No Reported History Father Family Medical History: Diabetes Mellitus Additional Family Medical History / Comment(s): Some kind of heart issue. General Exam Limitations: no limitations General appearance: alert, in no apparent distress, other (Physical well- developed, well-nourished adult female patient in no acute distress. Vital signs upon presentation are temperature 98.2F, pulse 82, respirations 20, blood pressure 148/73, pulse ox 100% on room air.) Eye exam: Present: normal appearance, PERRL, EOMI. Absent: scleral icterus, conjunctival injection, periorbital swelling ENT exam: Present: normal exam, normal oropharynx, mucous membranes moist Respiratory exam: Present: normal lung sounds bilaterally, chest wall tenderness (Left upper chest wall tenderness). Absent: respiratory distress, wheezes, rales, rhonchi, stridor Cardiovascular Exam: Present: regular rate, normal rhythm, normal heart sounds. Absent: systolic murmur, diastolic murmur, rubs, gallop, clicks GI/Abdominal exam: Present: soft, normal bowel sounds. Absent: distended, tenderness, guarding, rebound, rigid Neurological exam: Present: alert, oriented X3, CN II-XII intact Psychiatric exam: Present: normal affect, normal mood Skin exam: Present: warm, dry, intact, normal color. Absent: rash Course Vital Signs 11/14/19 11/14/19 11/14/19 19:33 20:00 21:01 Temperature 98.0 F Pulse Rate 82 78 Respiratory 20 20 18 Rate Blood Pressure 148/73 141/83 O2 Sat by Pulse 100 100 Oximetry 11/14/19 22:06 Temperature 98.2 F Pulse Rate 72 Respiratory 17 Rate Blood Pressure 140/73 O2 Sat by Pulse 10 L Oximetry EKG Findings - EKG Comments: EKG Findings:: EKG obtained at 1947 shows normal sinus rhythm with a ventricular rate is 78, AL interval 134, QRS duration 92, QT 394, QTC 449. No evidence of ST elevation or depression. Medical Decision Making - Medical Decision Making 44-year-old female patient presented to the emergency department today for evaluation of left upper chest pain with radiation through to the back. Patient has been sick with upper respiratory symptoms including cough and congestion for the last week. Physical examination did reveal reproducible pain over the left upper chest. Lungs are clear to auscultation with good air movement. Vital signs showed no major abnormalities. Labs reviewed and are unremarkable. Troponin negative. EKG shows no ST elevation or depression. Chest x-ray shows no acute cardiopulmonary process. I did discuss results and findings with the patient. Symptoms are most consistent with musculoskeletal chest pain, possibly costochondritis. She'll be discharged with instructions to take Tylenol Motrin for pain control. She is instructed to follow-up the primary care physician for recheck in 1-2 days. Return parameters were discussed in detail. She verbalizes understanding and agree with this plan - Lab Data Result diagrams: 11/14/19 19:55 11/14/19 19:55 Lab Results 11/14/19 11/14/19 11/14/19 Range/Units 19:55 19:55 19:55 WBC 6.6 (3.8-10.6) k/uL RBC 4.60 (3.80-5.40) m/uL Hgb 14.1 (11.4-16.0) gm/dL Hct 42.1 (34.0-46.0) % MCV 91.5 (80.0-100.0) fL MCH 30.6 (25.0-35.0) pg MCHC 33.5 (31.0-37.0) g/dL RDW 12.5 (11.5-15.5) % Plt Count 154 (150-450) k/uL Neutrophils % 56 % Lymphocytes % 32 % Monocytes % 6 % Eosinophils % 2 % Basophils % 1 % Neutrophils # 3.7 (1.3-7.7) k/uL Lymphocytes # 2.1 (1.0-4.8) k/uL Monocytes # 0.4 (0-1.0) k/uL Eosinophils # 0.2 (0-0.7) k/uL Basophils # 0.1 (0-0.2) k/uL PT 9.5 (9.0-12.0) sec INR 0.9 (<1.2) APTT 23.5 (22.0-30.0) sec D-Dimer 0.43 (<0.60) mg/L FEU Sodium 136 L (137-145) mmol/L Potassium 3.8 (3.5-5.1) mmol/L Chloride 104 (98-107) mmol/L Carbon Dioxide 25 (22-30) mmol/L Anion Gap 7 mmol/L BUN 19 H (7-17) mg/dL Creatinine 0.82 (0.52-1.04) mg/dL Est GFR (CKD-EPI)AfAm >90 (>60 ml/min/1.73 sqM) Est GFR (CKD-EPI)NonAf 88 (>60 ml/min/1.73 sqM) Glucose 97 (74-99) mg/dL Calcium 9.1 (8.4-10.2) mg/dL Magnesium 2.0 (1.6-2.3) mg/dL Total Bilirubin 0.4 (0.2-1.3) mg/dL AST 20 (14-36) U/L ALT 12 (4-34) U/L Alkaline Phosphatase 90 (38-126) U/L Troponin I (0.000-0.034) ng/mL Total Protein 7.2 (6.3-8.2) g/dL Albumin 4.2 (3.5-5.0) g/dL 11/14/19 Range/Units 19:55 WBC (3.8-10.6) k/uL RBC (3.80-5.40) m/uL Hgb (11.4-16.0) gm/dL Hct (34.0-46.0) % MCV (80.0-100.0) fL MCH (25.0-35.0) pg MCHC (31.0-37.0) g/dL RDW (11.5-15.5) % Plt Count (150-450) k/uL Neutrophils % % Lymphocytes % % Monocytes % % Eosinophils % % Basophils % % Neutrophils # (1.3-7.7) k/uL Lymphocytes # (1.0-4.8) k/uL Monocytes # (0-1.0) k/uL Eosinophils # (0-0.7) k/uL Basophils # (0-0.2) k/uL PT (9.0-12.0) sec INR (<1.2) APTT (22.0-30.0) sec D-Dimer (<0.60) mg/L FEU Sodium (137-145) mmol/L Potassium (3.5-5.1) mmol/L Chloride (98-107) mmol/L Carbon Dioxide (22-30) mmol/L Anion Gap mmol/L BUN (7-17) mg/dL Creatinine (0.52-1.04) mg/dL Est GFR (CKD-EPI)AfAm (>60 ml/min/1.73 sqM) Est GFR (CKD-EPI)NonAf (>60 ml/min/1.73 sqM) Glucose (74-99) mg/dL Calcium (8.4-10.2) mg/dL Magnesium (1.6-2.3) mg/dL Total Bilirubin (0.2-1.3) mg/dL AST (14-36) U/L ALT (4-34) U/L Alkaline Phosphatase (38-126) U/L Troponin I <0.012 (0.000-0.034) ng/mL Total Protein (6.3-8.2) g/dL Albumin (3.5-5.0) g/dL - Radiology Data Radiology results: report reviewed, image reviewed Two-view x-ray of the chest is obtained. Report was reviewed in its entirety impression by Dr. Gallegos shows normal chest. No change. Disposition Clinical Impression: Chest wall pain, Viral upper respiratory infection Disposition: HOME SELF-CARE Condition: Good Instructions (If sedation given, give patient instructions): Chest Pain (ED), Upper Respiratory Infection (ED) Additional Instructions: Increase fluids. Rest. Follow up with your primary care physician for recheck in 1-2 days. Return to the emergency department for any new, worsening, or concerning symptoms. Is patient prescribed a controlled substance at d/c from ED?: No Referrals: None,Stated [Primary Care Provider] - 1-2 days Time of Disposition: 21:54
[2019-11-14 20:33] LABS: Basophils # (A) 0.1 k/uL (0-0.2); Basophils % (A) 1 %; Eosinophils # (A) 0.2 k/uL (0-0.7); Eosinophils % (A) 2 %; HCT 42.1 % (34.0-46.0); HGB 14.1 gm/dL (11.4-16.0); Lymphocytes # (A) 2.1 k/uL (1.0-4.8); Lymphocytes % (A) 32 %; MCH 30.6 pg (25.0-35.0); MCHC 33.5 g/dL (31.0-37.0); MCV 91.5 fL (80.0-100.0); Mean Platelet Volume 9.8; Monocytes # (A) 0.4 k/uL (0-1.0); Monocytes % (A) 6 %; Neutrophils # (A) 3.7 k/uL (1.3-7.7); Neutrophils % (A) 56 %; Platelet Count 154 k/uL (150-450); RDW 12.5 % (11.5-15.5); WBC 6.6 k/uL (3.8-10.6)
--- NOTE | 2019-11-14 20:35 | XR ---
EXAMINATION TYPE: XR chest 2V DATE OF EXAM: 11/14/2019 COMPARISON: 10/30/2018 HISTORY: Cough TECHNIQUE: 2 views FINDINGS: Heart and mediastinum are normal. Lungs are clear. Diaphragm is normal. Bony thorax is norm al. There are chest leads. IMPRESSION: Normal chest. No change.
[2019-11-14 20:45] LABS: ALT 12 U/L (4-34); AST 20 U/L (14-36); African American GFR (CKD) >90 (>60 ml/min/1.73 sqM); Albumin 4.2 g/dL (3.5-5.0); Alkaline Phosphatase 90 U/L (38-126); Anion Gap 7 mmol/L; Blood Urea Nitrogen 19 mg/dL (7-17); Calcium 9.1 mg/dL (8.4-10.2); Carbon Dioxide 25 mmol/L (22-30); Chloride 104 mmol/L (98-107); Glucose 97 mg/dL (74-99); Non-African American GFR(CKD) 88 (>60 ml/min/1.73 sqM); Potassium 3.8 mmol/L (3.5-5.1); Sodium 136 mmol/L (137-145); Total Bilirubin 0.4 mg/dL (0.2-1.3); Total Protein 7.2 g/dL (6.3-8.2)
[2019-11-14 20:51] LABS: D-Dimer 0.43 mg/L FEU (<0.60); INR 0.9 (<1.2); Partial Thromboplastin Time 23.5 sec (22.0-30.0); Prothrombin Time 9.5 sec (9.0-12.0)
[2019-11-14 22:07] VITALS: BP 140/73; PULSE 72; RESP 17; TEMP 98.2
== END 2019-11-14 22:07 | disposition home or self-care (01) ==
LOC: EC 19:28
DX: J06.9 Acute upper respiratory infection, unspecified (principal)
CPT/HCPCS: 36415; 71046; 80053; 83735; 84484; 85025; 85379; 85610; 85730; 93005; 96361; 96374; 99285

== ENCOUNTER 2020-08-12 11:32 | Emergency (ER) | payer BC ==
[2020-08-12 11:38] VITALS: BP 147/87; PULSE 69; RESP 18; TEMP 98.2
[2020-08-12 12:24] LABS: Appearance,Urine Clear (Clear); Bacteria,Urine Rare /hpf; Bilirubin,Urine Negative (Negative); Blood,Urine Moderate (Negative); Color,Urine Light Yellow; Glucose,Urine (UA) Negative (Negative); Ketones,Urine Negative (Negative); Leukocyte Esterase,Urine Large (Negative); Nitrite,Urine Negative (Negative); PH, Urine 7.5 (5.0-8.0); Protein,Urine Negative (Negative); RBC,Urine 4 /hpf (0-5); Specific Gravity,Urine 1.007 (1.001-1.035); Squamous Epithelial Cell,Urine 2 /hpf (0-4); Urobilinogen,Urine <2.0 mg/dL (<2.0); WBC,Urine 54 /hpf (0-5)
--- NOTE | 2020-08-12 12:29 | ED ---
Female Urogenital HPI - General Chief complaint: Urogenital Stated complaint: poss UTI Time Seen by Provider: 08/12/20 11:39 Source: patient, RN notes reviewed Mode of arrival: ambulatory Limitations: no limitations - History of Present Illness Initial comments: 45 -year-old female presents emergency Department with chief complaint of dysuria, urinary frequency. Patient had frequent urinary tract infection. Patient feels that she has another one. No fevers or chills no significant nausea vomiting diarrhea. Patient states she has slight flank pain. No history kidney stones. - Related Data Previous Rx's Medication Instructions Recorded Cephalexin [Keflex] 500 mg PO Q12HR 10 Days cap 03/25/19 Cephalexin [Keflex] 500 mg PO Q12HR 10 Days cap 04/24/19 predniSONE [Deltasone] 20 mg PO BID 5 Days #10 tab 11/03/19 Cephalexin [Keflex] 500 mg PO Q8HR #21 cap 08/12/20 Allergies Allergy/AdvReac Type Severity Reaction Status Date / Time No Known Allergies Allergy Verified 08/12/20 11:38 Review of Systems ROS Statement: Those systems with pertinent positive or pertinent negative responses have been documented in the HPI. ROS Other: All systems not noted in ROS Statement are negative. Past Medical History Past Medical History: Asthma, GERD/Reflux Additional Past Medical History / Comment(s): SPINAL meningitis History of Any Multi-Drug Resistant Organisms: ESBL Date of last positivie culture/infection: 08/13/16 MDRO Source:: urine e.coli ESBL Additional Past Surgical History / Comment(s): sinus and multiple eye surgery Past Anesthesia/Blood Transfusion Reactions: Postoperative Nausea & Vomiting (PONV) Past Psychological History: Anxiety, Depression Smoking Status: Never smoker Past Alcohol Use History: None Reported Past Drug Use History: None Reported - Past Family History Mother Family Medical History: No Reported History Father Family Medical History: Diabetes Mellitus Additional Family Medical History / Comment(s): Some kind of heart issue. General Exam Limitations: no limitations General appearance: alert, in no apparent distress Head exam: Present: atraumatic, normocephalic, normal inspection Eye exam: Present: normal appearance, PERRL, EOMI. Absent: scleral icterus, conjunctival injection, periorbital swelling ENT exam: Present: normal exam, normal oropharynx, mucous membranes moist Neck exam: Present: normal inspection, full ROM. Absent: tenderness, meningismus, lymphadenopathy Respiratory exam: Present: normal lung sounds bilaterally. Absent: respiratory distress, wheezes, rales, rhonchi, stridor Cardiovascular Exam: Present: regular rate, normal rhythm, normal heart sounds. Absent: systolic murmur, diastolic murmur, rubs, gallop, clicks GI/Abdominal exam: Present: soft, normal bowel sounds. Absent: distended, tenderness, guarding, rebound, rigid Back exam: Absent: CVA tenderness (R), CVA tenderness (L) Course Vital Signs 08/12/20 11:35 Temperature 98.2 F Pulse Rate 69 Respiratory 18 Rate Blood Pressure 147/87 O2 Sat by Pulse 100 Oximetry Medical Decision Making - Medical Decision Making Patient has evidence of urinary tract infection. Patient we discharged on oral antibiotics. Return pressure discussed. - Lab Data Lab Results 08/12/20 08/12/20 Range/Units 12:01 12:01 Urine Color Light Yellow Urine Appearance Clear (Clear) Urine pH 7.5 (5.0-8.0) Ur Specific [place] 1.007 (1.001-1.035) Urine Protein Negative (Negative) Urine Glucose (UA) Negative (Negative) Urine Ketones Negative (Negative) Urine Blood Moderate H (Negative) Urine Nitrite Negative (Negative) Urine Bilirubin Negative (Negative) Urine Urobilinogen <2.0 (<2.0) mg/dL Ur Leukocyte Esterase Large H (Negative) Urine RBC 4 (0-5) /hpf Urine WBC 54 H (0-5) /hpf Ur Squamous Epith Cells 2 (0-4) /hpf Urine Bacteria Rare H (None) /hpf Urine HCG, Qual Not Detected (Not Detectd) Disposition Clinical Impression: UTI (urinary tract infection) Disposition: HOME SELF-CARE Condition: Stable Instructions (If sedation given, give patient instructions): Urinary Tract Infection in Women (ED) Additional Instructions: Please return to the Emergency Department if symptoms worsen or any other concerns. Prescriptions: Cephalexin [Keflex] 500 mg PO Q8HR #21 cap Is patient prescribed a controlled substance at d/c from ED?: No Referrals: None,Stated [Primary Care Provider] - 1-2 days Time of Disposition: 12:29
== END 2020-08-12 12:48 | disposition home or self-care (01) ==
LOC: EC 11:32
DX: N39.0 Urinary tract infection, site not specified (principal)
CPT/HCPCS: 81001; 81025; 87086; 99284

== ENCOUNTER 2020-09-04 12:58 | Emergency (ER) | payer BC ==
[2020-09-04 13:05] VITALS: RESP 20; TEMP 98.3
[2020-09-04] MEDS ORDERED: FLUORESCEIN STRIPS 1 MG STRIP BOTH EYES ONE (13:31)
[2020-09-04] MEDS ORDERED: PROPARACAINE 0.5% OPHTH DROPS 15 ML BTL BOTH EYES STA (13:31)
--- NOTE | 2020-09-04 13:37 | ED ---
General Adult HPI - General Chief complaint: Headache Stated complaint: Vision Disturbance Time Seen by Provider: 09/04/20 13:19 Source: patient, family Mode of arrival: ambulatory Limitations: physical limitation - History of Present Illness Initial comments: Dictation was produced using [email or web address] dictation software. please excuse any grammatical, word or spelling errors. This patient was cared for during a federal and state declared state of emergency secondary to Covid 19 Chief Complaint: 45-year-old female with loss of vision to the left eye presents today for 2-3 days of worsening vision in the right eye. History of Present Illness: 45-year-old female she was at work at [employer] today when she felt like her right-sided vision was getting worse. 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 States that she's been depressed and she also has a chronic headache to her right parietal area. Patient states she was also follow-up with ophthalmology however has not done so because of her depression. She states she neglected to help otherwise. Prior to the onset of her symptoms patient had decent vision in her right eye. She's had no vision in her left eye for several years. 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 She denies any floaters. She does not have any eye pain. States that she was diagnosed with some unspecified fluid in her eye. She is not sure what her diagnosis exactly was except perhaps it was a genetic. The ROS documented in this emergency department record has been reviewed and confirmed by me. Those systems with pertinent positive or negative responses have been documented in the HPI. All other systems are other negative and/or noncontributory. PHYSICAL EXAM: General Impression: Alert and oriented x3, not in acute distress HEENT: Normocephalic atraumatic, tenderness to palpation over the right parietal area, extra-ocular movements intact, pupils equal and reactive to light bilaterally, mucous membranes moist, Ocular: No conjunctival injection, funduscopic exam was attempted. There is no red reflex, lens bilaterally. Bilateral lenses appear to be opaque, I'm able to see the retina slightly on the left. Unable to visualize retina on the right, patient able to identify fingers in front of her face to approximately 3 feet. She is able to visualize light bilaterally Cardiovascular: Heart regular rate and rhythm Chest: Able to complete full sentences, no retractions, no tachypnea Abdomen: abdomen soft, non-tender, non-distended, no organomegaly Musculoskeletal: Pulses present and equal in all extremities, no peripheral edema Motor: no focal deficits noted Neurological: CN II-XII grossly intact, no focal motor or sensory deficits noted Skin: Intact with no visualized rashes Psych: Normal affect and mood ED course: 45-year-old female presents with chief complaint of worsening right sided vision loss. 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 Signs upon arrival are within acceptable limits. Bilateral intraocular pressures were measured and found to be elevated at 45. Daughter at bedside reports that patient is chronically elevated intraocular pressures. Case is discussed with Dr. Alves who requests that patient follow-up in his office tomorrow around 3 PM. Instructed patient to call the office at 9 PM to make an appointment. Fluorescein testing done bilaterally shows no corneal issues. - Related Data Previous Rx's Medication Instructions Recorded Cephalexin [Keflex] 500 mg PO Q12HR 10 Days cap 03/25/19 Cephalexin [Keflex] 500 mg PO Q12HR 10 Days cap 04/24/19 predniSONE [Deltasone] 20 mg PO BID 5 Days #10 tab 11/03/19 Cephalexin [Keflex] 500 mg PO Q8HR #21 cap 08/12/20 Allergies Allergy/AdvReac Type Severity Reaction Status Date / Time No Known Allergies Allergy Verified 09/04/20 13:04 Review of Systems ROS Statement: Those systems with pertinent positive or pertinent negative responses have been documented in the HPI. ROS Other: All systems not noted in ROS Statement are negative. Past Medical History Past Medical History: Asthma, GERD/Reflux Additional Past Medical History / Comment(s): SPINAL meningitis , lt eye blindness History of Any Multi-Drug Resistant Organisms: ESBL Date of last positivie culture/infection: 08/13/16 MDRO Source:: urine e.coli ESBL Additional Past Surgical History / Comment(s): sinus and multiple eye surgery Past Anesthesia/Blood Transfusion Reactions: Postoperative Nausea & Vomiting (PONV) Past Psychological History: Anxiety, Depression Smoking Status: Never smoker Past Alcohol Use History: None Reported Past Drug Use History: None Reported - Past Family History Mother Family Medical History: No Reported History Father Family Medical History: Diabetes Mellitus Additional Family Medical History / Comment(s): Some kind of heart issue. General Exam Limitations: physical limitation Course Vital Signs 09/04/20 12:59 Temperature 98.3 F Pulse Rate 81 Respiratory 20 Rate Blood Pressure 179/82 O2 Sat by Pulse 100 Oximetry Disposition Clinical Impression: Vision loss Disposition: HOME SELF-CARE Condition: Fair Instructions (If sedation given, give patient instructions): Blurred Vision (ED) Additional Instructions: Follow-up with Dr. Alves tomorrow. He wants to do the at his office around 3 PM. He wants to call the office at 9 AM to make an appointment. Neck U follow- up in his office because your vision could get worse resulting in permanent vision loss. Is patient prescribed a controlled substance at d/c from ED?: No Referrals: Claudette Alves MD [STAFF PHYSICIAN] - 09/05/20 5:00 am Time of Disposition: 14:29
[2020-09-04 14:47] VITALS: BP 139/73; PULSE 77
== END 2020-09-04 14:47 | disposition home or self-care (01) ==
LOC: EC 12:58
DX: H54.7 Unspecified visual loss (principal)
CPT/HCPCS: 99283

== ENCOUNTER 2020-10-11 15:49 | Emergency (ER) | payer BC ==
[2020-10-11 15:53] VITALS: BP 163/94; PULSE 71; RESP 18; TEMP 97.6
[2020-10-11] MEDS ORDERED: IBUPROFEN 600 MG TAB PO STA (16:18)
[2020-10-11 16:44] LABS: Appearance,Urine Cloudy (Clear); Bacteria,Urine Few /hpf; Bilirubin,Urine Negative (Negative); Blood,Urine Negative (Negative); Color,Urine Yellow; Glucose,Urine (UA) Negative (Negative); Ketones,Urine Negative (Negative); Leukocyte Esterase,Urine Large (Negative); Mucus,Urine Few /hpf; Nitrite,Urine Negative (Negative); PH, Urine 5.5 (5.0-8.0); Protein,Urine Negative (Negative); RBC,Urine 4 /hpf (0-5); Specific Gravity,Urine 1.017 (1.001-1.035); Squamous Epithelial Cell,Urine 2 /hpf (0-4); Urobilinogen,Urine <2.0 mg/dL (<2.0); WBC,Urine 153 /hpf (0-5)
[2020-10-11] MEDS ORDERED: cefTRIAXone 1,000 MG VIAL (IM USE) IM STA (17:03)
--- NOTE | 2020-10-11 17:03 | ED ---
General Adult HPI - General Chief complaint: Back Pain/Injury Stated complaint: Back pain,ABD pain Time Seen by Provider: 10/11/20 16:05 Source: patient Mode of arrival: ambulatory Limitations: no limitations - History of Present Illness Initial comments: Patient is a 45-year-old female presenting to emergency Department with complaints of dysuria as well as some mild right-sided low back pain. She states the dysuria started about 3 days ago and the back pain just started today. She denies any fever or chills, does admit to mild nausea no vomiting, no abdominal pain, no diarrhea. She states she does get UTIs frequently. She states her last one was approximately 2 months ago. She does not remember the antibiotic she was on. She denies being . She denies any chest pain or shortness of breath. She has no further complaints. - Related Data Previous Rx's Medication Instructions Recorded Cephalexin [Keflex] 500 mg PO Q12HR 10 Days cap 03/25/19 Cephalexin [Keflex] 500 mg PO Q12HR 10 Days cap 04/24/19 predniSONE [Deltasone] 20 mg PO BID 5 Days #10 tab 11/03/19 Cephalexin [Keflex] 500 mg PO Q8HR #21 cap 08/12/20 Cephalexin [Keflex] 500 mg PO BID 10 Days #20 cap 10/11/20 Allergies Allergy/AdvReac Type Severity Reaction Status Date / Time No Known Allergies Allergy Verified 10/11/20 15:53 Review of Systems ROS Statement: Those systems with pertinent positive or pertinent negative responses have been documented in the HPI. ROS Other: All systems not noted in ROS Statement are negative. Past Medical History Past Medical History: Asthma, GERD/Reflux Additional Past Medical History / Comment(s): SPINAL meningitis , lt eye blindness History of Any Multi-Drug Resistant Organisms: ESBL Date of last positivie culture/infection: 08/13/16 MDRO Source:: urine e.coli ESBL Additional Past Surgical History / Comment(s): sinus and multiple eye surgery Past Anesthesia/Blood Transfusion Reactions: Postoperative Nausea & Vomiting (PONV) Past Psychological History: Anxiety, Depression Smoking Status: Never smoker Past Alcohol Use History: None Reported Past Drug Use History: None Reported - Past Family History Mother Family Medical History: No Reported History Father Family Medical History: Diabetes Mellitus Additional Family Medical History / Comment(s): Some kind of heart issue. General Exam - General Exam Comments Initial Comments: GENERAL: Patient is well-developed and well-nourished. Patient is nontoxic and in no acute distress. HEAD: Atraumatic, normocephalic. EYES: Pupils equal round and reactive to light, extraocular movements intact, sclera anicteric, conjunctiva are normal. Eyelids were unremarkable. ENT: TMs normal, nares patent, oropharynx clear without exudates. Moist mucous membranes. NECK: Normal range of motion, supple without lymphadenopathy or JVD. LUNGS: Unlabored respirations. Breath sounds clear to auscultation bilaterally and equal. No wheezes rales or rhonchi. HEART: Regular rate and rhythm without murmurs, rubs or gallops. ABDOMEN: Mild suprapubic discomfort on palpation, no other areas of abdominal pain. Soft, normoactive bowel sounds. No guarding, no rebound. No masses appreciated. She does have mild right flank pain on palpation. : Deferred MUSCULOSKELETAL: Normal extremities with adequate strength and normal range of motion, no pitting or edema. No clubbing or cyanosis. NEUROLOGICAL: Patient is alert and oriented x 3. Motor and sensory are also intact. Cranial nerves II through XII grossly intact. Symmetrical smile. Normal speech, normal gait. PSYCH: Normal mood, normal affect. SKIN: Warm, Dry, normal turgor, no rashes or lesions noted. Limitations: no limitations Course Vital Signs 10/11/20 15:50 Temperature 97.6 F Pulse Rate 71 Respiratory 18 Rate Blood Pressure 163/94 O2 Sat by Pulse 100 Oximetry Medical Decision Making - Medical Decision Making Patient is a 45-year-old female with UTI-type symptoms 3 days and some mild right-sided flank pain that started today. No fevers her vital signs are stable. Urine shows large amount of WBCs, clumps, bacteria. Urine cultures pending. HCG is not detected. Patient be given 1 g Rocephin in the ER and started on Keflex. Patient is requesting referral to urologist. I will give her one. Patient is stable for discharge. Patient is in agreement with this plan of care. Return parameters were discussed with the patient and they verbalized understanding. Case discussed with Dr. duncan. - Lab Data Lab Results 10/11/20 10/11/20 Range/Units 16:31 16:31 Urine Color Yellow Urine Appearance Cloudy H (Clear) Urine pH 5.5 (5.0-8.0) Ur Specific [place] 1.017 (1.001-1.035) Urine Protein Negative (Negative) Urine Glucose (UA) Negative (Negative) Urine Ketones Negative (Negative) Urine Blood Negative (Negative) Urine Nitrite Negative (Negative) Urine Bilirubin Negative (Negative) Urine Urobilinogen <2.0 (<2.0) mg/dL Ur Leukocyte Esterase Large H (Negative) Urine RBC 4 (0-5) /hpf Urine WBC 153 H (0-5) /hpf Urine WBC Clumps Few H (None) /hpf Ur Squamous Epith Cells 2 (0-4) /hpf Urine Bacteria Few H (None) /hpf Urine Mucus Few H (None) /hpf Urine HCG, Qual Not Detected (Not Detectd) Disposition Clinical Impression: UTI (urinary tract infection) Disposition: HOME SELF-CARE Condition: Stable Instructions (If sedation given, give patient instructions): Urinary Tract Infection in Women (ED) Additional Instructions: Please return to the Emergency Department if symptoms worsen or any other concerns. Take antibiotic as prescribed. Follow-up with your primary care physician or urology as discussed. Prescriptions: Cephalexin [Keflex] 500 mg PO BID 10 Days #20 cap Is patient prescribed a controlled substance at d/c from ED?: No Referrals: None,Stated [Primary Care Provider] - 1-2 days Steven Shirley MD [STAFF PHYSICIAN] - 1-2 days
== END 2020-10-11 17:24 | disposition home or self-care (01) ==
LOC: EC 15:49
DX: N39.0 Urinary tract infection, site not specified (principal); Z32.02 Encounter for pregnancy test, result negative
CPT/HCPCS: 81001; 81025; 87086; 99283; 96372; J0696

== ENCOUNTER 2020-12-13 17:03 | Emergency (ER) | payer BC, OTHER ==
[2020-12-13 19:27] VITALS: PULSE 88
--- NOTE | 2020-12-13 19:41 | XR ---
EXAMINATION TYPE: XR chest 2V DATE OF EXAM: 12/13/2020 COMPARISON: 11/14/2019 TECHNIQUE: PA and lateral views submitted. HISTORY: Cough FINDINGS: The lungs are clear and there is no pneumothorax, pleural effusion, or focal pneumonia. Coarsened i nterstitial pattern. Hypertrophic change of the spine. Heart size normal. IMPRESSION: 1. Correlate for early interstitial pneumonitis..
[2020-12-13] MEDS ORDERED: ACETAMINOPHEN TAB 500 MG TAB PO STA (22:57)
[2020-12-13] MEDS ORDERED: DEXAMETHASONE SOD PHOSPHATE 10 MG/ML 1 ML VIAL IM STA (22:57)
[2020-12-13] MEDS ORDERED: ALBUTEROL HFA INHALER INHALATION STA (22:57)
[2020-12-13] MEDS ORDERED: IBUPROFEN 800 MG TAB PO STA (22:57)
--- NOTE | 2020-12-13 22:59 | ED ---
Chest Pain HPI - General Chief Complaint: Extremity Injury, Upper Stated Complaint: JAMES Time Seen by Provider: 12/13/20 21:51 Source: patient, RN notes reviewed, old records reviewed Mode of arrival: wheelchair Limitations: no limitations - History of Present Illness Initial Comments: This is a 45-year-old female DF for evaluation, patient virus confirmed and is concerned for coronavirus exposure possibility of having coronavirus herself. Patient is cough congestion shortness of breath without fever. No other new significant complaints MD Complaint: chest pain, other (Cough congestion shortness of breath) -: days(s) Onset: during rest, during exertion Pain Location: substernal Severity: mild Quality: aching Consistency: constant Improves With: nothing Worsens With: nothing Context: recent illness Anginal Symptoms: dyspnea, sense of impending doom Other Symptoms: cough, palpitations Treatments Prior to Arrival: none - Related Data Previous Rx's Medication Instructions Recorded Cephalexin [Keflex] 500 mg PO Q12HR 10 Days cap 03/25/19 Cephalexin [Keflex] 500 mg PO Q12HR 10 Days cap 04/24/19 predniSONE [Deltasone] 20 mg PO BID 5 Days #10 tab 11/03/19 Cephalexin [Keflex] 500 mg PO Q8HR #21 cap 08/12/20 Cephalexin [Keflex] 500 mg PO BID 10 Days #20 cap 10/11/20 Allergies Allergy/AdvReac Type Severity Reaction Status Date / Time No Known Allergies Allergy Verified 12/13/20 19:27 Review of Systems ROS Statement: Those systems with pertinent positive or pertinent negative responses have been documented in the HPI. ROS Other: All systems not noted in ROS Statement are negative. Past Medical History Past Medical History: Asthma, GERD/Reflux Additional Past Medical History / Comment(s): SPINAL meningitis , lt eye blindness, glaucoma History of Any Multi-Drug Resistant Organisms: ESBL Date of last positivie culture/infection: 08/13/16 MDRO Source:: urine e.coli ESBL Additional Past Surgical History / Comment(s): sinus and multiple eye surgery Past Anesthesia/Blood Transfusion Reactions: Postoperative Nausea & Vomiting (PONV) Past Psychological History: Anxiety, Depression Smoking Status: Never smoker Past Alcohol Use History: None Reported Past Drug Use History: None Reported - Past Family History Mother Family Medical History: No Reported History Father Family Medical History: Diabetes Mellitus Additional Family Medical History / Comment(s): Some kind of heart issue. General Exam Limitations: no limitations General appearance: alert, in no apparent distress Head exam: Present: atraumatic, normocephalic, normal inspection Eye exam: Present: normal appearance, PERRL, EOMI. Absent: scleral icterus, conjunctival injection, periorbital swelling ENT exam: Present: normal exam, mucous membranes moist Neck exam: Present: normal inspection. Absent: tenderness, meningismus, lymphadenopathy Respiratory exam: Present: normal lung sounds bilaterally. Absent: respiratory distress, wheezes, rales, rhonchi, stridor Cardiovascular Exam: Present: regular rate, normal rhythm, normal heart sounds. Absent: systolic murmur, diastolic murmur, rubs, gallop, clicks GI/Abdominal exam: Present: soft, normal bowel sounds. Absent: distended, tenderness, guarding, rebound, rigid Extremities exam: Present: normal inspection, full ROM, normal capillary refill. Absent: tenderness, pedal edema, joint swelling, calf tenderness Back exam: Present: normal inspection Neurological exam: Present: alert, oriented X3, CN II-XII intact Psychiatric exam: Present: normal affect, normal mood Skin exam: Present: warm, dry, intact, normal color. Absent: rash Course Vital Signs 12/13/20 12/13/20 19:25 23:32 Temperature 98.5 F 98.6 F Pulse Rate 88 88 Respiratory 22 18 Rate Blood Pressure 126/84 127/82 O2 Sat by Pulse 98 97 Oximetry - Reevaluation(s) Reevaluation #1: Medical record is reviewed Patient symptoms are significantly improved Patient informed results and questions have been answered Chest Pain MDM - MDM 45 female to the ER for chest pain. Patient has exposure and possible likely early coronavirus. Patient will continue quarantine symptoms therapy and return to ER symptoms worsen Disposition Clinical Impression: Interstitial pneumonitis, Asthmatic bronchitis with exacerbation, Chest pain Narrative: Coronavirus Exposure likely COVID positive Disposition: HOME SELF-CARE Condition: Good Instructions (If sedation given, give patient instructions): Coronavirus Disease 2019 (COVID-19), Asthma (ED) Is patient prescribed a controlled substance at d/c from ED?: No Referrals: None,Stated [Primary Care Provider] - 1-2 days
[2020-12-13 23:33] VITALS: BP 127/82; RESP 18; TEMP 98.6
== END 2020-12-13 23:34 | disposition home or self-care (01) ==
LOC: EC 17:03
DX: J84.89 Other specified interstitial pulmonary diseases (principal); J45.901 Unspecified asthma with (acute) exacerbation; H54.62 Unqualified visual loss, left eye, normal vision right eye; H40.9 Unspecified glaucoma; F41.9 Anxiety disorder, unspecified; F32.9 Major depressive disorder, single episode, unspecified; K21.9 Gastro-esophageal reflux disease without esophagitis; Z20.822 Contact with and (suspected) exposure to COVID-19
CPT/HCPCS: 94640; 87635; 71046; 99285; 96372; J1100

== ENCOUNTER 2020-12-21 08:05 | Inpatient (IN) | payer BC, OTHER ==
--- NOTE | 2020-12-21 08:28 | ED ---
General Adult HPI - General Chief complaint: Extremity Problem,Nontraumatic Stated complaint: R leg swelling Time Seen by Provider: 12/21/20 08:16 Source: patient, RN notes reviewed Mode of arrival: ambulatory Limitations: no limitations - History of Present Illness Initial comments: Patient is a pleasant 45-year-old female presenting to the emergency Department with complaints of right calf discomfort. Onset of symptoms was a couple of days ago. Patient states it feels a little bit swollen as well. No history of similar symptoms previously. Patient states she has had a recent cold with nonproductive cough. Patient states her chest hurts a little bit with coughing or deep breaths only. Otherwise no chest discomfort. No exertional chest di [place]om[place]. No dyspnea. No fevers. - Related Data Previous Rx's Medication Instructions Recorded Cephalexin [Keflex] 500 mg PO Q12HR 10 Days cap 03/25/19 Cephalexin [Keflex] 500 mg PO Q12HR 10 Days cap 04/24/19 predniSONE [Deltasone] 20 mg PO BID 5 Days #10 tab 11/03/19 Cephalexin [Keflex] 500 mg PO Q8HR #21 cap 08/12/20 Cephalexin [Keflex] 500 mg PO BID 10 Days #20 cap 10/11/20 Allergies Allergy/AdvReac Type Severity Reaction Status Date / Time No Known Allergies Allergy Verified 12/21/20 08:15 Review of Systems ROS Statement: Those systems with pertinent positive or pertinent negative responses have been documented in the HPI. ROS Other: All systems not noted in ROS Statement are negative. Constitutional: Denies: fever Eyes: Denies: eye pain ENT: Denies: ear pain Respiratory: Reports: as per HPI, cough. Denies: dyspnea Cardiovascular: Reports: as per HPI Endocrine: Denies: fatigue Gastrointestinal: Denies: abdominal pain Genitourinary: Denies: dysuria Musculoskeletal: Denies: back pain Skin: Denies: rash Neurological: Denies: weakness Past Medical History Past Medical History: Asthma, GERD/Reflux Additional Past Medical History / Comment(s): SPINAL meningitis , lt eye blindn ess, glaucoma History of Any Multi-Drug Resistant Organisms: ESBL Date of last positivie culture/infection: 08/13/16 MDRO Source:: urine e.coli ESBL Additional Past Surgical History / Comment(s): sinus and multiple eye surgery Past Anesthesia/Blood Transfusion Reactions: Postoperative Nausea & Vomiting (PONV) Past Psychological History: Anxiety, Depression Smoking Status: Never smoker Past Alcohol Use History: None Reported Past Drug Use History: None Reported - Past Family History Mother Family Medical History: No Reported History Father Family Medical History: Diabetes Mellitus Additional Family Medical History / Comment(s): Some kind of heart issue. General Exam Limitations: no limitations General appearance: alert, in no apparent distress Head exam: Present: normocephalic Eye exam: Present: normal appearance Neck exam: Present: normal inspection Respiratory exam: Present: normal lung sounds bilaterally, chest wall tenderness (Mild tenderness left anterior chest wall) Cardiovascular Exam: Present: regular rate, normal rhythm Expanded Peripheral pulses: 2+: Radial (R), Radial (L), Posterior Tibialis (R), Posterior Tibialis (L) GI/Abdominal exam: Present: soft. Absent: tenderness Extremities exam: Present: calf tenderness (Mild tenderness right calf laterally.), other (No significant swelling). Absent: pedal edema Neurological exam: Present: alert Psychiatric exam: Present: normal affect, normal mood Skin exam: Present: normal color Course Vital Signs 12/21/20 12/21/20 12/21/20 08:13 09:24 10:14 Temperature 97.9 F Pulse Rate 72 60 76 Respiratory 18 97 H 18 Rate Blood Pressure 159/80 140/87 147/86 O2 Sat by Pulse 100 99 100 Oximetry EKG Findings - EKG Comments: EKG Findings:: Normal sinus rhythm with a rate of 63. OH 144. QRS 82. QT 412. QTC 421. Right axis. Normal QRS. No acute ST change. Medical Decision Making - Medical Decision Making Call received from radiologist with concern for bilateral pulmonary embolism. Possible recent covid. Patient reevaluated and resting comfortably in bed. Patient updated. Case was discussed in detail with Dr. Helton, who will admit covering for hospital call. Case also discussed with Dr. Keller, who will consult. High-dose heparin ordered. - Lab Data Result diagrams: 12/21/20 08:32 12/21/20 08:32 Lab Results 12/21/20 12/21/20 12/21/20 Range/Units 08:32 08:32 08:32 WBC 5.7 (3.8-10.6) k/uL RBC 4.23 (3.80-5.40) m/uL Hgb 13.2 (11.4-16.0) gm/dL Hct 37.8 (34.0-46.0) % MCV 89.3 (80.0-100.0) fL MCH 31.2 (25.0-35.0) pg MCHC 34.9 (31.0-37.0) g/dL RDW 12.4 (11.5-15.5) % Plt Count 257 (150-450) k/uL MPV 8.8 Neutrophils % 71 % Lymphocytes % 19 % Monocytes % 5 % Eosinophils % 4 % Basophils % 1 % Neutrophils # 4.0 (1.3-7.7) k/uL Lymphocytes # 1.1 (1.0-4.8) k/uL Monocytes # 0.3 (0-1.0) k/uL Eosinophils # 0.2 (0-0.7) k/uL Basophils # 0.0 (0-0.2) k/uL PT 10.2 (9.0-12.0) sec INR 0.9 (<1.2) APTT 23.0 (22.0-30.0) sec D-Dimer 5.44 H (<0.60) mg/L FEU Sodium 139 (137-145) mmol/L Potassium 4.3 (3.5-5.1) mmol/L Chloride 104 (98-107) mmol/L Carbon Dioxide 27 (22-30) mmol/L Anion Gap 8 mmol/L BUN 9 (7-17) mg/dL Creatinine 0.58 (0.52-1.04) mg/dL Est GFR (CKD-EPI)AfAm >90 (>60 ml/min/1.73 sqM) Est GFR (CKD-EPI)NonAf >90 (>60 ml/min/1.73 sqM) Glucose 100 H (74-99) mg/dL Calcium 8.8 (8.4-10.2) mg/dL Magnesium 1.7 (1.6-2.3) mg/dL Total Bilirubin 0.7 (0.2-1.3) mg/dL AST 25 (14-36) U/L ALT 11 (4-34) U/L Alkaline Phosphatase 62 (38-126) U/L Troponin I (0.000-0.034) ng/mL Total Protein 6.3 (6.3-8.2) g/dL Albumin 3.3 L (3.5-5.0) g/dL Coronavirus (PCR) (Not Detectd) 12/21/20 12/21/20 Range/Units 08:32 08:32 WBC (3.8-10.6) k/uL RBC (3.80-5.40) m/uL Hgb (11.4-16.0) gm/dL Hct (34.0-46.0) % MCV (80.0-100.0) fL MCH (25.0-35.0) pg MCHC (31.0-37.0) g/dL RDW (11.5-15.5) % Plt Count (150-450) k/uL MPV Neutrophils % % Lymphocytes % % Monocytes % % Eosinophils % % Basophils % % Neutrophils # (1.3-7.7) k/uL Lymphocytes # (1.0-4.8) k/uL Monocytes # (0-1.0) k/uL Eosinophils # (0-0.7) k/uL Basophils # (0-0.2) k/uL PT (9.0-12.0) sec INR (<1.2) APTT (22.0-30.0) sec D-Dimer (<0.60) mg/L FEU Sodium (137-145) mmol/L Potassium (3.5-5.1) mmol/L Chloride (98-107) mmol/L Carbon Dioxide (22-30) mmol/L Anion Gap mmol/L BUN (7-17) mg/dL Creatinine (0.52-1.04) mg/dL Est GFR (CKD-EPI)AfAm (>60 ml/min/1.73 sqM) Est GFR (CKD-EPI)NonAf (>60 ml/min/1.73 sqM) Glucose (74-99) mg/dL Calcium (8.4-10.2) mg/dL Magnesium (1.6-2.3) mg/dL Total Bilirubin (0.2-1.3) mg/dL AST (14-36) U/L ALT (4-34) U/L Alkaline Phosphatase (38-126) U/L Troponin I <0.012 (0.000-0.034) ng/mL Total Protein (6.3-8.2) g/dL Albumin (3.5-5.0) g/dL Coronavirus (PCR) Not Detected (Not Detectd) - Radiology Data Radiology results: report reviewed (Ultrasound positive for DVT), image reviewed (Computed tomography scan positive for bilateral pulmonary embolism. No heart strain, as discussed with radiologist. Chest x-ray shows questionable developing infiltrate right base) Critical Care Time Critical Care Time: Yes Total Critical Care Time: 32 Disposition Clinical Impression: Deep vein thrombosis (DVT) of lower extremity, Bilateral pulmonary embolism Disposition: ADMITTED IP TO THIS HOSP Is patient prescribed a controlled substance at d/c from ED?: No Referrals: None,Stated [Primary Care Provider] - 1-2 days Decision Time: 10:18
[2020-12-21 09:14] LABS: Basophils % (A) 1 %; Eosinophils # (A) 0.2 k/uL (0-0.7); Eosinophils % (A) 4 %; HCT 37.8 % (34.0-46.0); HGB 13.2 gm/dL (11.4-16.0); Lymphocytes # (A) 1.1 k/uL (1.0-4.8); Lymphocytes % (A) 19 %; MCH 31.2 pg (25.0-35.0); MCHC 34.9 g/dL (31.0-37.0); MCV 89.3 fL (80.0-100.0); Mean Platelet Volume 8.8; Monocytes # (A) 0.3 k/uL (0-1.0); Monocytes % (A) 5 %; Neutrophils % (A) 71 %; Platelet Count 257 k/uL (150-450); RBC 4.23 m/uL (3.80-5.40); RDW 12.4 % (11.5-15.5); WBC 5.7 k/uL (3.8-10.6)
--- NOTE | 2020-12-21 09:20 | US ---
EXAMINATION TYPE: US venous doppler duplex LE RT DATE OF EXAM: 12/21/2020 8:58 AM COMPARISON: NONE CLINICAL HISTORY: pain. right lower leg pain and edema SIDE PERFORMED: right TECHNIQUE: The lower extremity deep venous system is examined utilizing real time linear array sonog jeremiah with graded compression, doppler sonography and color-flow sonography. VESSELS IMAGED: Common Femoral Vein Deep Femoral Vein Greater Saphenous Vein * Femoral Vein Popliteal Vein Small Saphenous Vein * Proximal Calf Veins (* superficial vessels) There is a lack of color flow, there are low-level internal echoes within the right popliteal vein wi th lack of compressibility towards the junction of the calf veins and popliteal vein Right Leg: *positive for DVT right popliteal vein lower/proximal calf vein IMPRESSION: Deep venous thrombosis right popliteal vein peripherally. Report relayed telephonically t rosibel Centeno at the time of interpretation.
[2020-12-21 09:23] LABS: ALT 11 U/L (4-34); African American GFR (CKD) >90 (>60 ml/min/1.73 sqM); Anion Gap 8 mmol/L; Blood Urea Nitrogen 9 mg/dL (7-17); Calcium 8.8 mg/dL (8.4-10.2); Carbon Dioxide 27 mmol/L (22-30); Chloride 104 mmol/L (98-107); Glucose 100 mg/dL (74-99); Non-African American GFR(CKD) >90 (>60 ml/min/1.73 sqM); Sodium 139 mmol/L (137-145); Total Bilirubin 0.7 mg/dL (0.2-1.3)
[2020-12-21 09:35] LABS: INR 0.9 (<1.2)
[2020-12-21 09:36] LABS: Prothrombin Time 10.2 sec (9.0-12.0)
[2020-12-21 09:42] LABS: Albumin 3.3 g/dL (3.5-5.0); Magnesium 1.7 mg/dL (1.6-2.3); Potassium 4.3 mmol/L (3.5-5.1); Total Protein 6.3 g/dL (6.3-8.2)
[2020-12-21 09:43] LABS: AST 25 U/L (14-36); Alkaline Phosphatase 62 U/L (38-126)
[2020-12-21 09:45] LABS: D-Dimer 5.44 mg/L FEU (<0.60)
--- NOTE | 2020-12-21 10:09 | XR ---
EXAMINATION TYPE: XR chest 2V DATE OF EXAM: 12/21/2020 COMPARISON: Chest x-ray December 13, 2020 HISTORY: Chest pain and left leg swelling. TECHNIQUE: Frontal and lateral views of the chest are obtained. FINDINGS: There is suggestion of new faint increased opacities in the right lower lung. No pleural e ffusion or pneumothorax is seen bilaterally. The cardiac silhouette size remains within normal limit s. The osseous structures are intact. Gas prominent bowel loops in the visualized abdomen. IMPRESSION: Possible developing acute infiltrates right lower lung.
--- NOTE | 2020-12-21 10:15 | CT ---
EXAMINATION TYPE: CT angio chest DATE OF EXAM: 12/21/2020 9:46 AM COMPARISON: None. HISTORY: Chest pain, DVT CT DLP: 381 mGycm Automated exposure control for dose reduction was used. CONTRAST: CTA scan of the thorax is performed with IV Contrast, patient injected with 73 mL of Isovue 370, pulm onary embolism protocol. MIP images are created and reviewed. FINDINGS: LUNGS: There multifocal areas of groundglass opacity throughout the bilateral lower lobes greatest po steriorly with additional areas of involvement to a lesser degree in the lingula and right middle lob e and inferior aspect of the bilateral upper lobes. No pleural effusion or pneumothorax is seen bilat erally. MEDIASTINUM: There is suboptimal bolus with heterogeneity, bilateral pulmonary emboli(n, there is par tial occlusive embolism in the anterior distal left pulmonary artery extending into lingular and left lower lobe branches. There is emboli in the right middle and lower lobe branches in the right lung. Main pulmonary artery prominent at nearly up to 3.0 cm in diameter axial image 51. No right ventricul ar dilatation. There are no greater than 1 cm hilar or mediastinal lymph nodes. No cardiomegaly or pericardial effusion is seen. OTHER: Slight scoliotic curvature with mild multilevel spurring. IMPRESSION: 1. Suboptimal study with bilateral pulmonary emboli. No CT evidence for RV strain. 2. Bilateral multifocal groundglass opacities greater in the lower lungs and periphery worrisome for covid infection in current environment. Correlate clinically. Case discussed with ordering ER physician via telephone at time of dictation. A Document Only message has been documented for Nabor Centeno DO in the [employer] system on 12/21/2020 10:12 AM, Message ID [id number].
[2020-12-21 10:16] VITALS: RESP 18
[2020-12-21] MEDS ORDERED: NALOXONE 0.4 MG/ML 1 ML VIAL IV PRN (10:18)
[2020-12-21] MEDS ORDERED: HEPARIN SODIUM 1,000 UN/ML (10ML VL) IV PRN (10:18)
[2020-12-21] MEDS ORDERED: HEPARIN SODIUM 1,000 UN/ML (10ML VL) IV ONE (10:18)
[2020-12-21] MEDS: HEPARIN SOD,PORK IN 0.45% NACL 25,000 UNIT in 0.45% NACL 1 250ML.BAG IV SCH (10:35)
--- NOTE | 2020-12-21 15:46 | P.CNPUL ---
History of Present Illness Consult date: 12/21/20 Reason for consult: pulmonary embolism History of present illness: 45-year-old female patient presented to ED with right lower extremity discomfo rt. The patient complained of pain and discomfort in her right calf area. This started a few days ago and the patient also noted some swelling in the right lower extremity. No previous history of DVT or pulmonary embolism. The patient stated that she had a recent cold and a nonproductive cough also. No chest pain. No pleurisy. No hemoptysis. No shortness of breath. On her blood work, the patient d-dimer of 5.44. Rest of the blood work was essentially within normal limits. Normal CBC, normal electrolytes. Covid 19 testing was essentially negative. note that the patient was also in the emergency department on 12/13/2020 where the patient was in the ED forcough and congestion and sh ortness of breath and at that time she had a Covid 19 exposure and the testing for Covid 19 came back negative.. No history of any travel. No history of any recent surgeries. No previous history of DVT or pulmonary embolism. Note that the patient's daughter had Covid 19 and the patient was actively exposed to her daughter. Nevertheless, Chemo tests came back negative. The suspicion remains quite high. No previous history of DVT or pulmonary embolism. No family history of clotting. The CT angiogram of the lungs was done and it showed multifocal areas of groundglass infiltrates in the lower lobes bilaterally and in addition to that there was evidence of pulmonary embolism bilaterally there was partial occlusion in the anterior distal left pulmonary artery extending into the lingula in the left lower lobe branches. There was also embolism in the right middle lobe and lower lobe branches. No right ventricular dilatation. No mediastinal lymphadenopathy. The patient also had some scoliosis of the spine. Doppler of the lower extremity showed a DVT in the right popliteal vein. The patient was started on IV heparin. The patient was admitted to the hospital. Review of Systems All systems: negative (For some right lower extremity calf pain and swelling consistent with underlying DVT. She denies having any shortness of breath.) Past Medical History Past Medical History: No Reported History, Asthma, Eye Disorder, GERD/Reflux, Osteoarthritis (OA) Additional Past Medical History / Comment(s): Pt legally blind/glaucoma, chronic upper back pain, spinal meningitis as child, recurrent UTIs with recent UTI. History of Any Multi-Drug Resistant Organisms: ESBL Date of last positivie culture/infection: 08/13/16 MDRO Source:: urine e.coli ESBL Past Surgical History: Section, Tubal Ligation Additional Past Surgical History / Comment(s): sinus and multiple eye surgery Past Anesthesia/Blood Transfusion Reactions: Postoperative Nausea & Vomiting (PONV) Past Psychological History: Anxiety, Depression Additional Psychological History / Comment(s): Pt resides alone with her 3 children, 2 of which are minors. Pt is legally blind and does not drive. She has to find rides and sometimes this is difficult. Smoking Status: Never smoker Past Alcohol Use History: None Reported Past Drug Use History: None Reported - Past Family History Mother Family Medical History: No Reported History Father Family Medical History: Diabetes Mellitus Additional Family Medical History / Comment(s): Some kind of heart issue. Medications and Allergies Home Medications Medication Instructions Recorded Confirmed Type Amoxic-Pot Clav 875-125Mg 1 tab PO BID 12/21/20 12/21/20 History [Augmentin 875-125] Brimonidine Tartrate [Alphagan P 1 drop BOTH EYES Q8H 12/21/20 12/21/20 History 0.2% Ophth Soln] Dorzolamide/Timolol/Pf 1 drop BOTH EYES BID 12/21/20 12/21/20 History [Dorzolamide 2%-Timolol 0.5%] Latanoprost Ophth [Xalatan 0.005%] 1 drop BOTH EYES HS 12/21/20 12/21/20 History Pilocarpine 1% Ophth Soln [Isopto 1 drop BOTH EYES Q8H 12/21/20 12/21/20 History Carpine 1%] predniSONE 10 mg PO BID 12/21/20 12/21/20 History Allergies Allergy/AdvReac Type Severity Reaction Status Date / Time No Known Allergies Allergy Verified 12/21/20 08:15 Physical Exam Vitals: Vital Signs Temp Pulse Resp BP Pulse Ox 12/21/20 13:23 97.9 F 79 18 124/80 98 12/21/20 10:39 66 18 153/83 100 12/21/20 10:14 76 18 147/86 100 12/21/20 09:24 60 97 H 140/87 99 12/21/20 08:13 97.9 F 72 18 159/80 100 Intake and Output 12/20/20 12/21/20 12/21/20 22:59 06:59 14:59 Other: Weight 103.011 kg - Constitutional General appearance: cooperative, no acute distress, obese - EENT Eyes: EOMI, PERRLA ENT: NA/AT - Neck Neck: no lymphadenopathy, normal ROM Thyroid: bilateral: normal size - Respiratory Respiratory: negative: CTA - Cardiovascular Rhythm: regular Heart sounds: normal: S1, S2 leg Peripheral Edema: right: 1+ (With some increased varicosities consistent with DVT of the popliteal vein.) - Gastrointestinal General gastrointestinal: normal bowel sounds - Integumentary Integumentary: normal turgor - Neurologic Neurologic: CNII-XII intact - Musculoskeletal Musculoskeletal: gait normal, generalized weakness - Psychiatric Psychiatric: A&O x's 3, appropriate affect, intact judgment & insight Results - Laboratory Findings CBC and BMP: 12/21/20 08:32 12/21/20 08:32 PT/INR, D-dimer PT 10.2 sec (9.0-12.0) 12/21/20 08:32 INR 0.9 (<1.2) 12/21/20 08:32 D-Dimer 5.44 mg/L FEU (<0.60) H 12/21/20 08:32 Abnormal lab findings: Abnormal Labs 12/21/20 12/21/20 08:32 08:32 D-Dimer 5.44 H Glucose 100 H Albumin 3.3 L - Diagnostic Findings Chest x-ray: image reviewed Assessment and Plan Plan: 1 acute right lower extremity DVT and secondary pulmonary embolism. The patient has a popliteal DVT of the right lower extremity and the patient has emboli bilaterally as evident on computed tomography scan of the chest 2 limited basilar groundglass pulmonary infiltrates, could be related to a previous covid 19 nfection/exposure. Other causes of pneumonia cannot be completely excluded. The patient had Covid 19 testing on 2 separate occasions and the results came back negative. These were done on 12/13/2020 and 12/21/2020. 3 obesity with a BMI of 36.7 4 glaucoma and the patient is currently legally blind 5 coronary malformation 6 chronic back pain plan check SARS CoV2 IgG antibodies, , As coronavirus could be potentially causing hypercoagulability and this could be potentially provoke cause of pulmonary embolism. The patient has checked twice through a nasal swab in the came back negative. Based on this will going to check antibodies. Continue IV heparin Obtain 2D echo We will transition this patient to long-acting oral anticoagulants at a later stage Resume all medications We'll continue to follow
[2020-12-21] MEDS: BRIMONIDINE TARTRATE 0.2% DROPS 5 ML BTL BOTH EYES SCH (16:24)
[2020-12-21] MEDS: PILOCARPINE 1% OPHTH DROPS 15 ML BTL BOTH EYES SCH (16:24)
[2020-12-21] MEDS: ONDANSETRON 4 MG/2 ML VIAL IVP PRN (18:48)
[2020-12-21] MEDS: DORZOLAMIDE-TIMOLOL 2.23%/0.68 10ML BTL BOTH EYES SCH (19:49)
[2020-12-21] MEDS ORDERED: LATANOPROST 0.005% OPHTH DROPS 2.5 ML BTL BOTH EYES SCH (21:00)
--- NOTE | 2020-12-21 22:23 | P.HPIM ---
History of Present Illness H&P Date: 12/21/20 Chief Complaint: Et leg swelling Patient is a 45-year-old female with a known history of asthma, GERD, osteoarthritis and chronic back pain, legally blind due to glaucoma and anxiety/depression presents to ER with complaints of right leg pain and left upper anterior chest pain. Patient states that she has been having right leg swelling and calf pain for the past 4 days and was also complaining of pleuritic left-sided chest pain. Denied any shortness of breath. No fever no chills. No nausea vomiting or abdominal pain or diarrhea. Patient did have cough and congestion and shortness of breath and was tested negative for Covid twice. Denies any sick contacts or recent travel. No history of DVT/PE. Patient had D-dimer level went up to 5.44 Chest x-ray showed possible developing acute infiltrates right lower lung. CT angiogram of the chest showed suboptimal study with bilateral pulmonary emboli. No CT evidence of RV strain. Bilateral multifocal groundglass opacities greater on the right lower lungs and periphery worrisome for Covid infection and current involvement. EKG showed normal sinus rhythm Laboratory data showed D-dimer 5.44 BUN 9 and creatinine 0.58 COVID-19 PCR not detected and magnesium 1.7 troponin Negative Review of Systems Constitutional: Patient denies any fever or chills . No generalized weakness or weight loss. Abdomen: Patient denied nausea vomiting and diarrhea and abdominal pain. Cardiovascular: Patient does have chest pain with deep breathing. No short of breath no palpitations. Respiratory: patient denied any cough or sputum production. No shortness of breath Neurologic: Patient denied any numbness or tingling headache. Musculoskeletal: Patient denies any complaints of joint swelling or deformity. Skin: Negative Psychiatric: Negative Endocrine: No heat or cold intolerance. No recent weight gain. Genitourinary: No dysuria or hematuria. All other 14 point ROS negative except the above Past Medical History Past Medical History: Asthma, Eye Disorder, GERD/Reflux Additional Past Medical History / Comment(s): Pt legally blind/glaucoma, chronic upper back pain, spinal meningitis as child, recurrent UTIs with recent UTI. PT REQUESTS THAT SHE RECEIVES NO BLOOD. History of Any Multi-Drug Resistant Organisms: ESBL Date of last positivie culture/infection: 08/13/16 MDRO Source:: urine e.coli ESBL Past Surgical History: Section, Tubal Ligation Additional Past Surgical History / Comment(s): sinus and multiple eye surgery Past Anesthesia/Blood Transfusion Reactions: Postoperative Nausea & Vomiting (PONV) Past Psychological History: Anxiety, Depression Additional Psychological History / Comment(s): Pt resides alone with her 3 children, 2 of which are minors. Pt is legally blind and does not drive. She has to find rides and sometimes this is difficult. Smoking Status: Never smoker Past Alcohol Use History: None Reported Past Drug Use History: None Reported - Past Family History Mother Family Medical History: No Reported History Father Family Medical History: Diabetes Mellitus Additional Family Medical History / Comment(s): Some kind of heart issue. Medications and Allergies Home Medications Medication Instructions Recorded Confirmed Type Amoxic-Pot Clav 875-125Mg 1 tab PO BID 12/21/20 12/21/20 History [Augmentin 875-125] Brimonidine Tartrate [Alphagan P 1 drop BOTH EYES Q8H 12/21/20 12/21/20 History 0.2% Ophth Soln] Dorzolamide/Timolol/Pf 1 drop BOTH EYES BID 12/21/20 12/21/20 History [Dorzolamide 2%-Timolol 0.5%] Latanoprost Ophth [Xalatan 0.005%] 1 drop BOTH EYES HS 12/21/20 12/21/20 History Pilocarpine 1% Ophth Soln [Isopto 1 drop BOTH EYES Q8H 12/21/20 12/21/20 History Carpine 1%] predniSONE 10 mg PO BID 12/21/20 12/21/20 History Allergies Allergy/AdvReac Type Severity Reaction Status Date / Time No Known Allergies Allergy Verified 12/21/20 08:15 Physical Exam Vitals: Vital Signs Temp Pulse Resp BP Pulse Ox 12/21/20 13:23 97.9 F 79 18 124/80 98 12/21/20 10:39 66 18 153/83 100 12/21/20 10:14 76 18 147/86 100 12/21/20 09:24 60 97 H 140/87 99 12/21/20 08:13 97.9 F 72 18 159/80 100 Intake and Output 12/20/20 12/21/20 12/21/20 22:59 06:59 14:59 Other: Weight 103.011 kg PHYSICAL EXAMINATION: Patient is lying in the bed comfortably, no acute distress, awake alert and oriented.. HEENT: Normocephalic. Neck is supple. Pupils reactive. Nostrils clear. Oral cavity is moist. Ears reveal no drainage. Neck reveals no JVD, carotid bruits, or thyromegaly. CHEST EXAMINATION: Trachea is central. Symmetrical expansion. Lung moser clear to auscultation and percussion. CARDIAC: Normal S1, S2 with no gallops. No murmurs ABDOMEN: Soft. Bowel sounds normal. No organomegaly. No abdominal bruits. Extremities:Patient does have right calf tenderness and swelling of the right lower extremity.. No clubbing or cyanosis Neurologically awake, alert, oriented x3 with well-coordinated movements. No focal deficits noted Skin: No rash or skin lesions. Psychiatric: Coperative. Nonsuicidal Musculoskeletal: No joint swelling or deformity. Normal range of motion. Results CBC & Chem 7: 12/21/20 08:32 12/21/20 08:32 Labs: Abnormal Lab Results - Last 24 Hours (Table) 12/21/20 12/21/20 Range/Units 08:32 08:32 D-Dimer 5.44 H (<0.60) mg/L FEU Glucose 100 H (74-99) mg/dL Albumin 3.3 L (3.5-5.0) g/dL Thrombosis Risk Factor Assmnt - DVT/VTE Prophylaxis DVT/VTE Prophylaxis: Pharmacologic Prophylaxis ordered - Choose All That Apply Any of the Below Risk Factors Present?: Yes Each Factor Represents 1 point: Age 41-60 years, Obesity (BMI >25) Other Risk Factors: Yes Each Risk Factor Represents 3 Points: History of DVT/PE Other congenital or acquired thrombophilia - If yes, enter type in comment: No Thrombosis Risk Factor Assessment Total Risk Factor Score: 5 Thrombosis Risk Factor Assessment Level: High Risk Assessment and Plan Assessment: Acute right lower extremity DVT and bilateral pulmonary emboli. Bilateral multifocal groundglass opacities greater on the right lungs. Possible COVID-19 infection. Tested x2 -. Legally blind likely due to glaucoma Chronic back pain Morbid obesity with BMI 36.7 Anxiety/depression History of ESBL E. coli urinary tract infection DVT prophylaxis patient is currently on heparin drip Plan: Patient was started on heparin drip. Currently not hypoxic. Patient was tested negative for COVID-19 infection twice. COVID-19 antibodies were ordered due to multifocal groundglass opacities in the CT chest.. Pulmonary is on board. 2D echocardiogram was ordered and current with home medications. Further recommendations based on the clinical course. Time with Patient: Greater than 30
[2020-12-22] MEDS: ONDANSETRON 4 MG/2 ML VIAL IVP PRN (00:59)
[2020-12-22] MEDS: HEPARIN SOD,PORK IN 0.45% NACL 25,000 UNIT in 0.45% NACL 1 250ML.BAG IV SCH (00:59)
[2020-12-22] MEDS: BRIMONIDINE TARTRATE 0.2% DROPS 5 ML BTL BOTH EYES SCH ×2 (01:00→08:14)
[2020-12-22] MEDS: PILOCARPINE 1% OPHTH DROPS 15 ML BTL BOTH EYES SCH ×2 (01:01→08:14)
[2020-12-22 02:42] LABS: Basophils % (A) 1 %; Eosinophils # (A) 0.2 k/uL (0-0.7); Eosinophils % (A) 2 %; HCT 33.8 % (34.0-46.0); HGB 11.9 gm/dL (11.4-16.0); Lymphocytes # (A) 1.8 k/uL (1.0-4.8); Lymphocytes % (A) 27 %; MCH 31.9 pg (25.0-35.0); MCHC 35.4 g/dL (31.0-37.0); MCV 90.2 fL (80.0-100.0); Mean Platelet Volume 8.6; Monocytes # (A) 0.4 k/uL (0-1.0); Monocytes % (A) 5 %; Neutrophils # (A) 4.1 k/uL (1.3-7.7); Neutrophils % (A) 63 %; Platelet Count 230 k/uL (150-450); RBC 3.74 m/uL (3.80-5.40); RDW 12.6 % (11.5-15.5); WBC 6.6 k/uL (3.8-10.6)
[2020-12-22] MEDS: DORZOLAMIDE-TIMOLOL 2.23%/0.68 10ML BTL BOTH EYES SCH (08:13)
--- NOTE | 2020-12-22 08:22 | ECHOF ---
Referral Reason:PE MEASUREMENTS -------- HEIGHT: 167.6 cm WEIGHT: 103.0 kg BP: 147/86 RVIDd: 3.6 cm (< 3.3) IVSd: 1.2 cm (0.6 - 1.1) LVIDd: 4.1 cm (3.9 - 5.3) LVPWd: 1.3 cm (0.6 - 1.1) IVSs: 1.7 cm LVIDs: 2.8 cm LVPWs: 1.7 cm LAESV Index (A-L): 29.53 ml/m Ao Diam: 3.2 cm (2.0 - 3.7) AV Cusp: 2.1 cm (1.5 - 2.6) MV EXCURSION: 21.946 mm (> 18.000) MV EF SLOPE: 76 mm/s (70 - 150) EPSS: 1.2 cm MV E Hood: 0.98 m/s MV DecT: 160 ms MV A Hood: 0.54 m/s MV E/A Ratio: 1.82 RAP: 5.00 mmHg RVSP: 25.16 mmHg TAPSE: 24.79 mm FINDINGS -------- Sinus rhythm. This was a technically adequate study. The left ventricular size is normal. There is mild concentric left ventricular hypertrophy. Overa ll left ventricular systolic function is normal with, an EF between 55 - 60 %. The diastolic fillin g pattern is normal for the age of the patient 10.11. The right ventricle is mildly enlarged. The right ventricular systolic function is normal. LA is midly dilated 29-33ml/m2. The right atrial size is normal. Interatrial and interventricular septum intact. The aortic valve is trileaflet and appears structurally normal. There is no evidence of aortic regu rgitation. There is no evidence of aortic stenosis. Mild mitral regurgitation is present. Mild tricuspid regurgitation present. There is no evidence of pulmonary hypertension. The right v entricular systolic pressure, as measured by Doppler, is 25.16mmHg. Trace/mild (physiologic) pulmonic regurgitation. The aortic root size is normal. IVC Not well visulized. There is no pericardial effusion. CONCLUSIONS -------- 1. The left ventricular size is normal. 2. There is mild concentric left ventricular hypertrophy. 3. Overall left ventricular systolic function is normal with, an EF between 55 - 60 %. 4. The diastolic filling pattern is normal for the age of the patient 10.11 5. The right ventricle is mildly enlarged. 6. The right ventricular systolic function is normal. 7. LA is midly dilated 29-33ml/m2. 8. Mild mitral regurgitation is present. 9. Mild tricuspid regurgitation present. 10. Trace/mild (physiologic) pulmonic regurgitation. 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
[2020-12-22] MEDS ORDERED: APIXABAN 5 MG TAB PO SCH (12:15)
[2020-12-22 13:00] VITALS: BP 103/68; PULSE 68; TEMP 97.9
--- NOTE | 2020-12-22 13:40 | P.PN ---
Subjective Progress Note Date: 12/22/20 Principal diagnosis: Right lower extremity DVT/PE 45-year-old female patient presented to ED with right lower extremity discomfort. The patient complained of pain and discomfort in her right calf area. This started a few days ago and the patient also noted some swelling in the right lower extremity. No previous history of DVT or pulmonary embolism. The patient stated that she had a recent cold and a nonproductive cough also. No chest pain. No pleurisy. No hemoptysis. No shortness of breath. On her blood work, the patient d-dimer of 5.44. Rest of the blood work was essentially within normal limits. Normal CBC, normal electrolytes. Covid 19 testing was essentially negative. note that the patient was also in the emergency department on 12/13/2020 where the patient was in the ED forcough and congestion and shortness of breath and at that time she had a Covid 19 exposure and the testing for Covid 19 came back negative.. No history of any travel. No history of any recent surgeries. No previous history of DVT or pulmonary embolism. Note that the patient's daughter had Covid 19 and the patient was actively exposed to her daughter. Nevertheless, Chemo tests came back negative. The suspicion remains quite high. No previous history of DVT or pulmonary embolism. No family history of clotting. The CT angiogram of the lungs was done and it showed multifocal areas of groundglass infiltrates in the lower lobes bilaterally and in addition to that there was evidence of pulmonary embolism bilaterally there was partial occlusion in the anterior distal left pulmonary artery extending into the lingula in the left lower lobe branches. There was also embolism in the right middle lobe and lower lobe branches. No right ventricular dilatation. No mediastinal lymphadenopathy. The patient also had some scoliosis of the spine. Doppler of the lower extremity showed a DVT in the right popliteal vein. The patient was started on IV heparin. The patient was admitted to the hospital. The patient is seen today 12/22/2020 in follow-up on the regular medical floor. She is awake and alert in no acute distress. Currently resting quite comfortably in bed. She is maintaining O2 saturations in the mid to upper 90s on room air. She's been afebrile. Hemodynamically stable. No worsening shortness of breath, no chest pain no hemoptysis. White count 6.6. Hemoglobin 11.9. Her COVID-19 antibody screen was positive. Most likely the cause of her thromboembolic state. Echocardiogram revealed preserved left ventricular systolic function with ejection fraction 50-60%. No significant right heart drain. She is qualified for Eliquis which will be initiated today. Heparin drip will be discontinued. Objective - Vital Signs Vital signs: Vital Signs Temp 97.9 F 12/22/20 12:59 Pulse 68 12/22/20 12:59 Resp 18 12/22/20 12:59 BP 103/68 12/22/20 12:59 Pulse Ox 97 12/22/20 12:59 Intake & Output 12/21/20 12/22/20 12/22/20 18:59 06:59 18:59 Intake Total 895.326 Balance 895.326 Weight 103.011 kg Intake: Intake, IV Titration 295.326 Amount Heparin Sod,Pork in 0.45% 295.326 NaCl 25,000 unit In 0.45 % NaCl 1 250ml.bag @ 18 UNITS/KG/HR 18.542 mls/hr IV .[id number] [facility] Rx#: [id number] Oral 600 Other: Voiding Method Bedside Commode Bedside Commode Bedside Commode # Voids 1 2 - Exam - Constitutional General appearance: cooperative, no acute distress, obese - EENT Eyes: EOMI, PERRLA ENT: NA/AT - Neck Neck: no lymphadenopathy, normal ROM Thyroid: bilateral: normal size - Respiratory Respiratory: negative: CTA - Cardiovascular Rhythm: regular Heart sounds: normal: S1, S2 leg Peripheral Edema: right: 1+ (With some increased varicosities consistent with DVT of the popliteal vein.) - Gastrointestinal General gastrointestinal: normal bowel sounds - Integumentary Integumentary: normal turgor - Neurologic Neurologic: CNII-XII intact - Musculoskeletal Musculoskeletal: gait normal, generalized weakness - Psychiatric Psychiatric: A&O x's 3, appropriate affect, intact judgment & insight - Labs CBC & Chem 7: 12/22/20 01:40 12/21/20 08:32 Labs: Abnormal Lab Results - Last 24 Hours (Table) 12/21/20 12/21/20 12/22/20 Range/Units 15:46 15:46 01:40 RBC (3.80-5.40) m/uL Hct (34.0-46.0) % APTT 165.9 H* 130.6 H* (22.0-30.0) sec SARS-CoV-2 Ab,Total Reactive A (Non-Reactive) 12/22/20 Range/Units 01:40 RBC 3.74 L (3.80-5.40) m/uL Hct 33.8 L (34.0-46.0) % APTT (22.0-30.0) sec SARS-CoV-2 Ab,Total (Non-Reactive) Assessment and Plan Assessment: 1 acute right lower extremity DVT and secondary pulmonary embolism. The patient has a popliteal DVT of the right lower extremity and the patient has emboli bilaterally as evident on computed tomography scan of the chest. Suspect secondary to COVID-19. Antibody screens were reactive. 2 limited basilar groundglass pulmonary infiltrates, could be related to a previous covid 19 nfection/exposure. Other causes of pneumonia cannot be completely excluded. The patient had Covid 19 testing on 2 separate occasions and the results came back negative. These were done on 12/13/2020 and 12/21/2020. 3 obesity with a BMI of 36.7 4 glaucoma and the patient is currently legally blind 5 coronary malformation 6 chronic back pain plan The patient was seen and evaluated by Dr. Keller COVID-19 antibodies reactive To be transitioned to Eliquis On room air and no pulmonary complaints Home once cleared by medicine
--- NOTE | 2020-12-22 14:38 | P.DS ---
Providers Date of admission: 12/21/20 10:18 Expected date of discharge: 12/22/20 Attending physician: Poornima Mcarthur Consults: 12/21/20 10:17 Consult Physician Urgent Consulting Provider: Rock Keller Consult Reason/Comments: pe Do you want consulting provider notified?: Already Contacted Primary care physician: Stated None Hospital Course: Final diagnosis Acute right lower extremity DVT and bilateral pulmonary emboli. Bilateral multifocal groundglass opacities greater on the right lungs. Possible COVID-19 infection. Tested x2 -. SARS Covid 2 antibody reactive Legally blind likely due to glaucoma Chronic back pain Morbid obesity with BMI 36.7 Anxiety/depression History of ESBL E. coli urinary tract infection DVT prophylaxis Hospital course Patient is a 45-year-old female with a known history of asthma, GERD, osteoarthritis and chronic back pain, legally blind due to glaucoma and anxiety/depression presents to ER with complaints of right leg pain and left u pper anterior chest pain. Patient states that she has been having right leg swelling and calf pain for the past 4 days and was also complaining of pleuritic left-sided chest pain. Denied any shortness of breath. No fever no chills. No nausea vomiting or abdominal pain or diarrhea. Patient did have cough and congestion and shortness of breath and was tested negative for Covid twice. Denies any sick contacts or recent travel. No history of DVT/PE. Patient had D-dimer level went up to 5.44 Chest x-ray showed possible developing acute infiltrates right lower lung. CT angiogram of the chest showed suboptimal study with bilateral pulmonary emboli. No CT evidence of RV strain. Bilateral multifocal groundglass opacities greater on the right lower lungs and periphery worrisome for Covid infection and current involvement. EKG showed normal sinus rhythm Laboratory data showed D-dimer 5.44 BUN 9 and creatinine 0.58 COVID-19 PCR not detected and magnesium 1.7 troponin Negative 12/22/2020 Patient is seen and evaluated in follow-up this morning no acute overnight issues. Patient is being followed by pulmonary and will follow-up within the next 1-2 weeks in the outpatient setting. Patient has been transitioned from IV heparin and started on Eliquis per PE protocol and will continue with 10 mg twice daily for the next week and then transition to 5 mg twice daily and will need follow-up with pulmonary in the outpatient setting. Patient also needs to establish with a primary care provider and resources were provided. Currently no reports of chest pain, shortness of breath, or palpitations. Patient is afebrile. No reports of nausea or vomiting and patient is tolerating diet. Patient will be discharged home today. On exam vital signs are stable. Temp is 97.9F, pulse is 68, respirations are 18, blood pressure is 103/68, oxygen saturation is 97% on room air. Cardio S1, S2 are muffled. Respiratory system shows diminished breath sounds at the bases with no wheezing or rhonchi noted. Abdomen is soft and nontender. Nervous system shows no focal deficits. Please refer to medication reconciliation sheet for a list of medications. Patient Condition at Discharge: Fair Plan - Discharge Summary Discharge Rx Participant: No New Discharge Prescriptions: New Apixaban [Eliquis Starter Pack (for VTE)] 0 mg PO DIRECTED 30 Days #1 pack Ondansetron Odt [Zofran Odt] 4 mg PO Q8HR PRN #12 tab PRN Reason: Nausea Continue Dorzolamide/Timolol/Pf [Dorzolamide 2%-Timolol 0.5%] 1 drop BOTH EYES BID predniSONE 10 mg PO BID Latanoprost Ophth [Xalatan 0.005%] 1 drop BOTH EYES HS Pilocarpine 1% Ophth Soln [Isopto Carpine 1%] 1 drop BOTH EYES Q8H Brimonidine Tartrate [Alphagan P 0.2% Ophth Soln] 1 drop BOTH EYES Q8H Amoxic-Pot Clav 875-125Mg [Augmentin 875-125] 1 tab PO BID Discharge Medication List Amoxic-Pot Clav 875-125Mg [Augmentin 875-125] 1 tab PO BID 12/21/20 [History] Brimonidine Tartrate [Alphagan P 0.2% Ophth Soln] 1 drop BOTH EYES Q8H 12/21/20 [History] Dorzolamide/Timolol/Pf [Dorzolamide 2%-Timolol 0.5%] 1 drop BOTH EYES BID 12/21/20 [History] Latanoprost Ophth [Xalatan 0.005%] 1 drop BOTH EYES HS 12/21/20 [History] Pilocarpine 1% Ophth Soln [Isopto Carpine 1%] 1 drop BOTH EYES Q8H 12/21/20 [History] predniSONE 10 mg PO BID 12/21/20 [History] Apixaban [Eliquis Starter Pack (for VTE)] 0 mg PO DIRECTED 30 Days #1 pack 12/22/20 [Rx] Ondansetron Odt [Zofran Odt] 4 mg PO Q8HR PRN #12 tab 12/22/20 [Rx] Follow up Appointment(s)/Referral(s): Narda Godoy MD [STAFF PHYSICIAN] - 1-2 Days Rock Keller MD [STAFF PHYSICIAN] - 1 Week Activity/Diet/Wound Care/Special Instructions: clear for discharge Activity Limited until follow-up Follow-up with primary care provider and establish upon discharge Continue current diet Use Zofran as needed for nausea prior to meals Continue with Eliquis as prescribed Follow-up with pulmonary in 2-3 weeks Discharge Disposition: HOME SELF-CARE
== END 2020-12-22 17:31 | disposition home or self-care (01) | DRG 299 ==
LOC: EC 08:05 → 5NMEDONC 10:18
PROVIDERS: ADMIT Hospitalist; ATTEND Hospitalist
DX: I82.431 Acute embolism and thrombosis of right popliteal vein (principal); I26.99 Other pulmonary embolism without acute cor pulmonale; Q24.5 Malformation of coronary vessels; K21.9 Gastro-esophageal reflux disease without esophagitis; J45.909 Unspecified asthma, uncomplicated; F32.9 Major depressive disorder, single episode, unspecified; H54.8 Legal blindness, as defined in USA; G89.29 Other chronic pain; M19.90 Unspecified osteoarthritis, unspecified site; Z20.822 Contact with and (suspected) exposure to COVID-19; E66.01 Morbid (severe) obesity due to excess calories; M41.9 Scoliosis, unspecified; M54.89 Other dorsalgia; F41.9 Anxiety disorder, unspecified; Z83.3 Family history of diabetes mellitus; Z86.19 Personal history of other infectious and parasitic diseases; Z82.49 Family history of ischemic heart disease and other diseases of the circulatory system; Z68.36 Body mass index [BMI] 36.0-36.9, adult; Z87.440 Personal history of urinary (tract) infections; Z98.51 Tubal ligation status; Z86.16 Personal history of COVID-19; Z86.61 Personal history of infections of the central nervous system
CPT/HCPCS: 36415; 71046; 71275; 80053; 83735; 84484; 85025; 85379; 85610; 85730; 86769; 87635; 93005; 93306; 99291

== ENCOUNTER 2021-03-02 23:36 | Emergency (ER) | payer BC, OTHER ==
[2021-03-02 23:59] VITALS: TEMP 97.2
[2021-03-03] MEDS ORDERED: MORPHINE SULFATE 4 MG/ML SYRINGE IV STA (00:07)
[2021-03-03] MEDS ORDERED: SODIUM CHLORIDE 0.9% 1,000 ML IV STA ×2 (00:07)
[2021-03-03] MEDS ORDERED: SODIUM CHLORIDE 0.9% 500 ML 500 ML IV STA (00:07)
[2021-03-03] MEDS ORDERED: KETOROLAC 15 MG/ML 1 ML VIAL IVP STA (00:07)
[2021-03-03 00:27] LABS: Basophils % (A) 1 %; Eosinophils # (A) 0.2 k/uL (0-0.7); Eosinophils % (A) 4 %; HCT 37.8 % (34.0-46.0); HGB 12.8 gm/dL (11.4-16.0); Lymphocytes # (A) 2.2 k/uL (1.0-4.8); Lymphocytes % (A) 41 %; MCH 31.5 pg (25.0-35.0); MCHC 33.8 g/dL (31.0-37.0); MCV 93.3 fL (80.0-100.0); Mean Platelet Volume 10.3; Monocytes # (A) 0.3 k/uL (0-1.0); Monocytes % (A) 6 %; Neutrophils # (A) 2.5 k/uL (1.3-7.7); Neutrophils % (A) 46 %; Platelet Count 139 k/uL (150-450); RBC 4.06 m/uL (3.80-5.40); RDW 13.6 % (11.5-15.5); WBC 5.3 k/uL (3.8-10.6)
--- NOTE | 2021-03-03 00:31 | ED ---
Abdominal Pain HPI - General Chief Complaint: Urogenital Stated Complaint: Side Pain Time Seen by Provider: 03/03/21 00:06 Source: patient Mode of arrival: ambulatory Limitations: no limitations - Related Data Home Medications Medication Instructions Recorded Confirmed Amoxic-Pot Clav 875-125Mg 1 tab PO BID 12/21/20 12/21/20 [Augmentin 875-125] Brimonidine Tartrate [Alphagan P 1 drop BOTH EYES Q8H 12/21/20 12/21/20 0.2% Ophth Soln] Dorzolamide/Timolol/Pf 1 drop BOTH EYES BID 12/21/20 12/21/20 [Dorzolamide 2%-Timolol 0.5%] Latanoprost Ophth [Xalatan 0.005%] 1 drop BOTH EYES HS 12/21/20 12/21/20 Pilocarpine 1% Ophth Soln [Isopto 1 drop BOTH EYES Q8H 12/21/20 12/21/20 Carpine 1%] predniSONE 10 mg PO BID 12/21/20 12/21/20 Previous Rx's Medication Instructions Recorded Apixaban [Eliquis Starter Pack 0 mg PO DIRECTED 30 Days #1 pack 12/22/20 (for VTE)] Ondansetron Odt [Zofran Odt] 4 mg PO Q8HR PRN #12 tab 12/22/20 Ciprofloxacin HCl [Cipro] 500 mg PO Q12HR #20 tablet 03/03/21 Allergies Allergy/AdvReac Type Severity Reaction Status Date / Time No Known Allergies Allergy Verified 12/21/20 08:15 Review of Systems ROS Statement: Those systems with pertinent positive or pertinent negative responses have been documented in the HPI. ROS Other: All systems not noted in ROS Statement are negative. Past Medical History Past Medical History: Asthma, Eye Disorder, GERD/Reflux Additional Past Medical History / Comment(s): Pt legally blind/glaucoma, chronic upper back pain, spinal meningitis as child, recurrent UTIs with recent UTI. PT REQUESTS THAT SHE RECEIVES NO BLOOD. History of Any Multi-Drug Resistant Organisms: ESBL Date of last positivie culture/infection: 08/13/16 MDRO Source:: urine e.coli ESBL Past Surgical History: Section, Tubal Ligation Additional Past Surgical History / Comment(s): sinus and multiple eye surgery Past Anesthesia/Blood Transfusion Reactions: Postoperative Nausea & Vomiting (PONV) Past Psychological History: Anxiety, Depression Smoking Status: Never smoker Past Alcohol Use History: None Reported Past Drug Use History: None Reported - Past Family History Mother Family Medical History: No Reported History Father Family Medical History: Diabetes Mellitus Additional Family Medical History / Comment(s): Some kind of heart issue. General Exam Limitations: no limitations Course Vital Signs 03/02/21 03/02/21 03/03/21 23:45 23:53 01:00 Temperature 97.7 F 97.2 F L Pulse Rate 51 L 58 L 55 L Respiratory 16 18 20 Rate Blood Pressure 138/79 151/88 132/72 O2 Sat by Pulse 100 100 100 Oximetry Medical Decision Making - Lab Data Result diagrams: 03/03/21 00:11 03/03/21 00:11 Lab Results 03/03/21 03/03/21 03/03/21 Range/Units 00:11 00:11 00:11 WBC 5.3 (3.8-10.6) k/uL RBC 4.06 (3.80-5.40) m/uL Hgb 12.8 (11.4-16.0) gm/dL Hct 37.8 (34.0-46.0) % MCV 93.3 (80.0-100.0) fL MCH 31.5 (25.0-35.0) pg MCHC 33.8 (31.0-37.0) g/dL RDW 13.6 (11.5-15.5) % Plt Count 139 L (150-450) k/uL MPV 10.3 Neutrophils % 46 % Lymphocytes % 41 % Monocytes % 6 % Eosinophils % 4 % Basophils % 1 % Neutrophils # 2.5 (1.3-7.7) k/uL Lymphocytes # 2.2 (1.0-4.8) k/uL Monocytes # 0.3 (0-1.0) k/uL Eosinophils # 0.2 (0-0.7) k/uL Basophils # 0.0 (0-0.2) k/uL Sodium 139 (137-145) mmol/L Potassium 4.0 (3.5-5.1) mmol/L Chloride 113 H (98-107) mmol/L Carbon Dioxide 18 L (22-30) mmol/L Anion Gap 8 mmol/L BUN 16 (7-17) mg/dL Creatinine 0.85 (0.52-1.04) mg/dL Est GFR (CKD-EPI)AfAm >90 (>60 ml/min/1.73 sqM) Est GFR (CKD-EPI)NonAf 84 (>60 ml/min/1.73 sqM) Glucose 107 H (74-99) mg/dL Calcium 8.9 (8.4-10.2) mg/dL Total Bilirubin 0.2 (0.2-1.3) mg/dL AST 16 (14-36) U/L ALT 7 (4-34) U/L Alkaline Phosphatase 62 (38-126) U/L Total Protein 6.5 (6.3-8.2) g/dL Albumin 3.8 (3.5-5.0) g/dL Amylase 78 (30-110) U/L Lipase 167 (23-300) U/L Urine Color Yellow Urine Appearance Clear (Clear) Urine pH 5.5 (5.0-8.0) Ur Specific Colon 1.024 (1.001-1.035) Urine Protein Negative (Negative) Urine Glucose (UA) Negative (Negative) Urine Ketones Negative (Negative) Urine Blood Negative (Negative) Urine Nitrite Negative (Negative) Urine Bilirubin Negative (Negative) Urine Urobilinogen <2.0 (<2.0) mg/dL Ur Leukocyte Esterase Moderate H (Negative) Urine RBC 2 (0-5) /hpf Urine WBC 42 H (0-5) /hpf Ur Squamous Epith Cells 2 (0-4) /hpf Urine Bacteria Rare H (None) /hpf Urine Mucus Occasional H (None) /hpf Disposition Clinical Impression: Urinary tract infection, Pyelonephritis of right kidney Disposition: HOME SELF-CARE Condition: Good Instructions (If sedation given, give patient instructions): Kidney Infection (ED) Prescriptions: Ciprofloxacin HCl [Cipro] 500 mg PO Q12HR #20 tablet Is patient prescribed a controlled substance at d/c from ED?: No Referrals: Narda Godoy MD [Primary Care Provider] - 1-2 days
[2021-03-03 00:50] LABS: ALT 7 U/L (4-34); AST 16 U/L (14-36); African American GFR (CKD) >90 (>60 ml/min/1.73 sqM); Albumin 3.8 g/dL (3.5-5.0); Alkaline Phosphatase 62 U/L (38-126); Amylase 78 U/L (30-110); Anion Gap 8 mmol/L; Blood Urea Nitrogen 16 mg/dL (7-17); Calcium 8.9 mg/dL (8.4-10.2); Carbon Dioxide 18 mmol/L (22-30); Chloride 113 mmol/L (98-107); Glucose 107 mg/dL (74-99); Lipase 167 U/L (23-300); Non-African American GFR(CKD) 84 (>60 ml/min/1.73 sqM); Sodium 139 mmol/L (137-145); Total Bilirubin 0.2 mg/dL (0.2-1.3); Total Protein 6.5 g/dL (6.3-8.2)
[2021-03-03 01:05] LABS: Appearance,Urine Clear (Clear); Bacteria,Urine Rare /hpf; Bilirubin,Urine Negative (Negative); Blood,Urine Negative (Negative); Color,Urine Yellow; Glucose,Urine (UA) Negative (Negative); Ketones,Urine Negative (Negative); Leukocyte Esterase,Urine Moderate (Negative); Mucus,Urine Occasional /hpf; Nitrite,Urine Negative (Negative); PH, Urine 5.5 (5.0-8.0); Protein,Urine Negative (Negative); RBC,Urine 2 /hpf (0-5); Specific Gravity,Urine 1.024 (1.001-1.035); Squamous Epithelial Cell,Urine 2 /hpf (0-4); Urobilinogen,Urine <2.0 mg/dL (<2.0); WBC,Urine 42 /hpf (0-5)
--- NOTE | 2021-03-03 01:33 | CT ---
EXAMINATION TYPE: CT abdomen pelvis wo con DATE OF EXAM: 03/03/2021 COMPARISON: 05/02/2018 HISTORY: right flank pain CT DLP: 860.5 mGycm Automated exposure control for dose reduction was used. Images obtained from the diaphragm to the floor the pelvis without contrast. Lung bases are clear. There is no pleural effusion. Heart size is fairly normal. There is no pericard ial effusion. Liver spleen pancreas stomach appear intact. The bile ducts are not dilated. Gallbladder is contracte d. There is no adrenal mass. Kidneys have normal size. There are cystic areas in the left and right mike l holly consistent with multiple parapelvic cysts. I see no definite hydronephrosis. The ureters are n ot dilated. There is no retroperitoneal adenopathy. Bladder distends smoothly. There is clips from tu bal ligation. There is no inguinal hernia. Uterus is anteverted. There is no free fluid in the pelvis . I see no pelvic mass. Appendix is inferior and appears normal. There is some retained fecal material in the right colon. There is no mesenteric edema. There is no ascites or free air. There is no bowel obstruction. Lumbar vertebra have normal alignment. Disc spaces are fairly normal. There is no compression fracture. The bony pelvis is intact. There is no hip dysplasia. Hip joints appear normal. IMPRESSION: There is some retained fecal material in the right colon. This appears increased compared to old exam . Evaluation of kidneys limited due to lack of contrast. No evidence of appendicitis. Multiple bilateral renal parapelvic cysts. This appears increased compared to old exam.
[2021-03-03] MEDS ORDERED: CIPROFLOXACIN HCL 500 MG TAB PO STA (01:56)
[2021-03-03] MEDS ORDERED: NITROFURANTOIN MONOHYD/M-CRYST 100 MG CAP PO STA (01:56)
[2021-03-03] MEDS ORDERED: NITROFURANTOIN MONOHYD/M-CRYST 100 MG CAP PO ONE (02:45)
[2021-03-03 02:46] VITALS: BP 150/71; PULSE 54; RESP 18
== END 2021-03-03 02:45 | disposition home or self-care (01) ==
LOC: EC 23:36
DX: N39.0 Urinary tract infection, site not specified (principal); N12 Tubulo-interstitial nephritis, not specified as acute or chronic; J45.909 Unspecified asthma, uncomplicated; Z98.51 Tubal ligation status; F32.9 Major depressive disorder, single episode, unspecified
CPT/HCPCS: 36415; 74176; 80053; 81001; 82150; 83690; 85025; 87086; 96361; 96374; 96375; 99284

== ENCOUNTER → 2021-06-01 | Outpatient (CLI) | payer OTHER ==
--- NOTE | 2021-06-01 12:52 | US ---
EXAMINATION TYPE: US thyroid st tissue head/neck DATE OF EXAM: 06/01/2021 COMPARISON: NONE CLINICAL HISTORY: R51.9; R22.0 Localized swelling, mass and lump, he. Pt states pain midline/right sc alp near top of head Pt's scalp in area of pt's pain was scanned/ very difficult to scan due to large amount of hair on pt's scalp/ No abnormality could be appreciated in area of pt's pain IMPRESSION: Exam is limited. MRI or CT could be performed for better evaluation.
== END | disposition home or self-care (01) ==
LOC: RADUSWWP 09:47
PROVIDERS: ATTEND Family Medicine
DX: R51.9 Headache, unspecified (principal); R22.0 Localized swelling, mass and lump, head
CPT/HCPCS: 76536

== ENCOUNTER → 2021-06-09 | Outpatient (CLI) | payer OTHER ==
--- NOTE | 2021-06-09 08:07 | CT ---
EXAMINATION TYPE: CT brain wo con DATE OF EXAM: 06/09/2021 COMPARISON: HISTORY: Scalp stabbing pain, localized swelling of fat. Additional symptoms of headache and vision i ssues along with dizziness per patient. CT DLP: 1147 mGycm. Automated Exposure Control for Dose Reduction was Utilized. TECHNIQUE: CT scan of the head is performed without contrast. FINDINGS: There is no acute intracranial hemorrhage, mass effect, or midline shift identified. The ventricles and sulci are within normal limits in size for patient's age. Nichols-white matter differen tiation fairly well maintained. The calvarium is intact. No soft tissue focal fluid collection or mas s identified. The globes are symmetric and somewhat small caliber. Intraconal fat is preserved. Visua lized paranasal sinuses are clear. No suspicious opacification of the mastoid air cells bilaterally. IMPRESSION: No acute findings are evident.
== END | disposition home or self-care (01) ==
LOC: RADCTMAIN 07:07
PROVIDERS: ATTEND Family Medicine
DX: R51.9 Headache, unspecified (principal); R42 Dizziness and giddiness
CPT/HCPCS: 70450

== ENCOUNTER 2021-09-10 12:23 | Observation (INO) | payer OTHER ==
[2021-09-10] MEDS ORDERED: ASPIRIN 81 MG PO STA (13:17)
[2021-09-10] MEDS ORDERED: ACETAMINOPHEN TAB 500 MG TAB PO STA (13:18)
--- NOTE | 2021-09-10 13:40 | ED ---
General Adult HPI - General Chief complaint: Extremity Problem,Nontraumatic Stated complaint: covid +, leg,chest and back pain Time Seen by Provider: 09/10/21 13:06 Source: patient, RN notes reviewed, old records reviewed Mode of arrival: ambulatory Limitations: no limitations - History of Present Illness Initial comments: Patient is a 46-year-old female who is currently Covid positive for the last week complaining of upper respiratory symptoms as well as chest pain, exertional dyspnea, as well as lateral lower extremity edema. She does have a history of DVTs as well as PEs, secondary to Covid earlier this year. She is no longer on blood thinner medications. She states she has worsening chest pain with coughing, describes left-sided and achy that radiates to her left shoulder. Patient was not vaccinated for COVID-19. Denies any known palliative or provocative factors. Denies any orthopnea, PND. Does endorse worsening exertional dyspnea. She is concerned that she may have blood clots again, this is a similar presentation, addition to being Covid positive. She would like to be evaluated. She states that symptoms began to get worse a few days ago. 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 His no other acute complaints at this time. I evaluated patient when she was placed in a room. Patient tested covid Positive at the [facility] offices on 09/04/2021. - Related Data Home Medications Medication Instructions Recorded Confirmed Brimonidine Tartrate [Alphagan P 1 drop BOTH EYES TID 12/21/20 09/10/21 0.2% Ophth Soln] Dorzolamide/Timolol/Pf 1 drop BOTH EYES TID 12/21/20 09/10/21 [Dorzolamide 2%-Timolol 0.5%] Latanoprost Ophth [Xalatan 0.005%] 1 drop BOTH EYES HS 12/21/20 09/10/21 Pilocarpine 1% Ophth Soln [Isopto 1 drop BOTH EYES TID 12/21/20 09/10/21 Carpine 1%] Aspirin EC [Ecotrin Low Dose] 81 mg PO HS 09/10/21 09/10/21 Ergocalciferol [Vitamin D2 (1250 1,250 mcg PO Q14D 09/10/21 09/10/21 Mcg = 03570 Iu)] acetaZOLAMIDE [acetaZOLAMIDE ER] 500 mg PO BID 09/10/21 09/10/21 Allergies Allergy/AdvReac Type Severity Reaction Status Date / Time No Known Allergies Allergy Verified 09/10/21 16:09 Review of Systems ROS Statement: Those systems with pertinent positive or pertinent negative responses have been documented in the HPI. Review of Systems: CONST: Denies fever EYES: Denies blurry vision ENT: Endorses nasal congestion C/V: Endorses chest pain RESP: Endorses shortness of breath GI: Denies abdominal pain : Denies dysuria SKIN: Denies rash. MSK: Denies joint pain. NEURO: Denies headache ROS Other: All systems not noted in ROS Statement are negative. Past Medical History Past Medical History: Asthma, Eye Disorder, GERD/Reflux Additional Past Medical History / Comment(s): Pt legally blind/glaucoma, chronic upper back pain, spinal meningitis as child, recurrent UTIs with recent UTI. PT REQUESTS THAT SHE RECEIVES NO BLOOD. History of Any Multi-Drug Resistant Organisms: ESBL Date of last positivie culture/infection: 08/13/16 MDRO Source:: urine e.coli ESBL Past Surgical History: Section, Tubal Ligation Additional Past Surgical History / Comment(s): sinus and multiple eye surgery Past Anesthesia/Blood Transfusion Reactions: Postoperative Nausea & Vomiting (PONV) Past Psychological History: Anxiety, Depression Smoking Status: Never smoker Past Alcohol Use History: None Reported Past Drug Use History: None Reported - Past Family History Mother Family Medical History: No Reported History Father Family Medical History: Diabetes Mellitus Additional Family Medical History / Comment(s): Some kind of heart issue. General Exam - General Exam Comments Initial Comments: General: Appears in no acute distress. HEAD: Normal with no signs of head trauma. EYES: PERRLA, EOMI, conjunctiva normal, no discharge. ENT: Hearing grossly intact, normal oropharynx. RESPIRATORY: Clear breath sounds bilaterally. No wheezes, rales, or rhonchi. No respiratory distress. No hypoxia. C/V: Regular rate and rhythm. S1 and S2 auscultated, peripheral pulses 2+ and intact throughout. Patient does have edematous legs, however there is no pitting edema. Does appear symmetrical. Patient is tender to palpation in the popliteal region bilaterally. ABD: Abd is soft, nontender, nondistended EXT: Normal range of motion, no obvious deformity SKIN: No rashes or lesions observed on exposed skin. NEURO: Alert and oriented x 4. Cranial nerves II-XII intact. No focal sensory or strength deficits. Limitations: no limitations Course Vital Signs 09/10/21 09/10/21 09/10/21 12:33 15:22 17:01 Temperature 98.4 F Pulse Rate 75 56 L 62 Respiratory 18 18 18 Rate Blood Pressure 151/90 121/65 136/78 O2 Sat by Pulse 98 100 100 Oximetry 09/10/21 19:09 Temperature 98.4 F Pulse Rate 58 L Respiratory 18 Rate Blood Pressure 104/52 O2 Sat by Pulse 98 Oximetry Medical Decision Making - Medical Decision Making Based on the patient's presentation and physical exam, she is high risk for blood clots, particularly with a history of them. Patient does not PERC our and Wells score for PE is moderate at 4.5 at least. We'll therefore obtain a d- dimer but also obtain CT angiogram of the chest. We'll also obtain bilateral duplex is as well as a cardiac workup. Patient will be given an aspirin as well as Tylenol. She was in agreement this plan. EKG shows no signs of acute ischemia. Patient's laboratory studies are remarkable for mildly elevated d-dimer of 1.07. The remainder of the labs are unremarkable. Troponin is negative. Patient's bilateral venous duplexes are negative. Patient's CT angiogram for pulmonary embolus was negative for PE. On reevaluation, patient's chest pain is improved. However she is concerned regarding which she describes as a bradycardic episode at home. She denies any lightheadedness right now her bradycardia renown. She feels nervous going home on her own. Heart score is 3 and low, however did offer observation admission for telemetry monitoring which she accepted. We will trend her troponins. I consulted cardiology. I spoke with the admitting team under Dr. Helton who accepted the patient. Patient was admitted to observation telemetry in stable condition. - Lab Data Result diagrams: 09/10/21 13:40 09/10/21 13:40 Lab Results 09/10/21 09/10/21 09/10/21 Range/Units 13:40 13:40 13:40 WBC 5.1 (3.8-10.6) k/uL RBC 4.58 (3.80-5.40) m/uL Hgb 13.7 (11.4-16.0) gm/dL Hct 42.6 (34.0-46.0) % MCV 93.1 (80.0-100.0) fL MCH 29.9 (25.0-35.0) pg MCHC 32.1 (31.0-37.0) g/dL RDW 12.7 (11.5-15.5) % Plt Count 189 (150-450) k/uL MPV 9.6 Neutrophils % 66 % Lymphocytes % 25 % Monocytes % 5 % Eosinophils % 2 % Basophils % 1 % Neutrophils # 3.3 (1.3-7.7) k/uL Lymphocytes # 1.3 (1.0-4.8) k/uL Monocytes # 0.3 (0-1.0) k/uL Eosinophils # 0.1 (0-0.7) k/uL Basophils # 0.1 (0-0.2) k/uL PT 10.3 (9.0-12.0) sec INR 1.0 (<1.2) APTT 24.0 (22.0-30.0) sec D-Dimer 1.07 H (<0.60) mg/L FEU Sodium 139 (137-145) mmol/L Potassium 4.0 (3.5-5.1) mmol/L Chloride 110 H (98-107) mmol/L Carbon Dioxide 21 L (22-30) mmol/L Anion Gap 8 mmol/L BUN 14 (7-17) mg/dL Creatinine 0.82 (0.52-1.04) mg/dL Est GFR (CKD-EPI)AfAm >90 (>60 ml/min/1.73 sqM) Est GFR (CKD-EPI)NonAf 87 (>60 ml/min/1.73 sqM) Glucose 104 H (74-99) mg/dL Calcium 8.9 (8.4-10.2) mg/dL Magnesium 1.9 (1.6-2.3) mg/dL Total Bilirubin 0.7 (0.2-1.3) mg/dL AST 14 (14-36) U/L ALT 8 (4-34) U/L Alkaline Phosphatase 71 (38-126) U/L Troponin I (0.000-0.034) ng/mL NT-Pro-B Natriuret Pep pg/mL Total Protein 6.9 (6.3-8.2) g/dL Albumin 4.0 (3.5-5.0) g/dL 09/10/21 09/10/21 Range/Units 13:40 13:40 WBC (3.8-10.6) k/uL RBC (3.80-5.40) m/uL Hgb (11.4-16.0) gm/dL Hct (34.0-46.0) % MCV (80.0-100.0) fL MCH (25.0-35.0) pg MCHC (31.0-37.0) g/dL RDW (11.5-15.5) % Plt Count (150-450) k/uL MPV Neutrophils % % Lymphocytes % % Monocytes % % Eosinophils % % Basophils % % Neutrophils # (1.3-7.7) k/uL Lymphocytes # (1.0-4.8) k/uL Monocytes # (0-1.0) k/uL Eosinophils # (0-0.7) k/uL Basophils # (0-0.2) k/uL PT (9.0-12.0) sec INR (<1.2) APTT (22.0-30.0) sec D-Dimer (<0.60) mg/L FEU Sodium (137-145) mmol/L Potassium (3.5-5.1) mmol/L Chloride (98-107) mmol/L Carbon Dioxide (22-30) mmol/L Anion Gap mmol/L BUN (7-17) mg/dL Creatinine (0.52-1.04) mg/dL Est GFR (CKD-EPI)AfAm (>60 ml/min/1.73 sqM) Est GFR (CKD-EPI)NonAf (>60 ml/min/1.73 sqM) Glucose (74-99) mg/dL Calcium (8.4-10.2) mg/dL Magnesium (1.6-2.3) mg/dL Total Bilirubin (0.2-1.3) mg/dL AST (14-36) U/L ALT (4-34) U/L Alkaline Phosphatase (38-126) U/L Troponin I <0.012 (0.000-0.034) ng/mL NT-Pro-B Natriuret Pep 141 pg/mL Total Protein (6.3-8.2) g/dL Albumin (3.5-5.0) g/dL - EKG Data -: EKG Interpreted by Me EKG Comments: 12-lead Electrocardiogram Interpretation Note EKG was reviewed and interpreted by myself. 12-lead ECG performed at 1434 is interpreted by me as revealing sinus bradycardia at a rate of 55 beats per minute. Sumrall is normal. NM interval is 148 ms, QRS duration is 92 ms, QTc is 4 19 ms.. There were no ST or T wave abnormalities to suggest myocardial ischemia or injury. R wave progression across the precordium was satisfactory. By my interpretation this EKG is non-diagnostic for acute ischemia. Disposition Clinical Impression: Chest pain of unknown etiology, COVID-19 virus infection Disposition: ADMITTED IP TO THIS HOSP Condition: Stable Is patient prescribed a controlled substance at d/c from ED?: No
[2021-09-10 13:59] LABS: Basophils # (A) 0.1 k/uL (0-0.2); Basophils % (A) 1 %; Eosinophils # (A) 0.1 k/uL (0-0.7); Eosinophils % (A) 2 %; HCT 42.6 % (34.0-46.0); HGB 13.7 gm/dL (11.4-16.0); Lymphocytes # (A) 1.3 k/uL (1.0-4.8); Lymphocytes % (A) 25 %; MCH 29.9 pg (25.0-35.0); MCHC 32.1 g/dL (31.0-37.0); MCV 93.1 fL (80.0-100.0); Mean Platelet Volume 9.6; Monocytes # (A) 0.3 k/uL (0-1.0); Monocytes % (A) 5 %; Neutrophils # (A) 3.3 k/uL (1.3-7.7); Neutrophils % (A) 66 %; Platelet Count 189 k/uL (150-450); RBC 4.58 m/uL (3.80-5.40); RDW 12.7 % (11.5-15.5); WBC 5.1 k/uL (3.8-10.6)
[2021-09-10 14:14] LABS: ALT 8 U/L (4-34); AST 14 U/L (14-36); African American GFR (CKD) >90 (>60 ml/min/1.73 sqM); Alkaline Phosphatase 71 U/L (38-126); Anion Gap 8 mmol/L; Blood Urea Nitrogen 14 mg/dL (7-17); Calcium 8.9 mg/dL (8.4-10.2); Carbon Dioxide 21 mmol/L (22-30); Chloride 110 mmol/L (98-107); Glucose 104 mg/dL (74-99); Magnesium 1.9 mg/dL (1.6-2.3); Non-African American GFR(CKD) 87 (>60 ml/min/1.73 sqM); Sodium 139 mmol/L (137-145); Total Bilirubin 0.7 mg/dL (0.2-1.3); Total Protein 6.9 g/dL (6.3-8.2)
[2021-09-10 14:28] LABS: Prothrombin Time 10.3 sec (9.0-12.0)
--- NOTE | 2021-09-10 14:35 | CT ---
EXAMINATION TYPE: CT chest angio for PE DATE OF EXAM: 09/10/2021 COMPARISON: 12/21/2020 HISTORY: covid, history of PE, high risk for PE CT DLP: 511.6 mGycm Automated exposure control for dose reduction was used. CONTRAST: Performed with IV Contrast, patient injected with 100 mL of Isovue 370. Images obtained from the thoracic inlet to the diaphragm with IV contrast Isovue 73 mL. There are 3-D postprocessing images. The lungs are clear of infiltrate. There is no pleural effusion. There are no hilar masses. There is no mediastinal adenopathy. Thoracic aorta is intact. There is no aneurysm or dissection. The ascendin g aorta measures 3.3 cm. There is normal contrast opacification of the pulmonary arteries. There are no filling defects. The thoracic spine is intact. Sternum is intact. Exam limited slightly by motion. IMPRESSION: Negative exam. No evidence of pulmonary embolism.
--- NOTE | 2021-09-10 15:14 | US ---
EXAMINATION TYPE: US venous doppler duplex LE BI DATE OF EXAM: 09/10/2021 3:07 PM COMPARISON: NONE CLINICAL HISTORY: bilateral leg pain/swelling, eval for dvt. SIDE PERFORMED: Bilateral TECHNIQUE: The lower extremity deep venous system is examined utilizing real time linear array sonog jeremiah with graded compression, doppler sonography and color-flow sonography. VESSELS IMAGED: Common Femoral Vein Deep Femoral Vein Greater Saphenous Vein * Femoral Vein Popliteal Vein Small Saphenous Vein * Proximal Calf Veins (* superficial vessels) Right Leg: Negative for DVT Left Leg: Negative for DVT IMPRESSION: No evidence of deep vein thrombosis in both legs.
[2021-09-10] MEDS ORDERED: LIDOCAINE 5% PATCH TOPICAL STA (15:37)
[2021-09-10] MEDS ORDERED: NALOXONE 0.4 MG/ML 1 ML VIAL IV PRN (15:46)
[2021-09-10] MEDS ORDERED: HEPARIN SODIUM,PORCINE/PF 5,000 UNIT/0.5 ML SYRINGE SQ SCH (16:00)
[2021-09-10] MEDS: ASCORBIC ACID 500 MG TAB PO SCH (21:00)
[2021-09-10] MEDS: ACETAMINOPHEN TAB 325 MG TAB PO PRN (21:00)
[2021-09-10] MEDS: CHOLECALCIFEROL 25 MCG (1000 IU) TABLET PO SCH (21:00)
[2021-09-10] MEDS: ENOXAPARIN 40 MG/0.4 ML SYRINGE SQ SCH (21:01)
--- NOTE | 2021-09-10 21:14 | HP ---
HISTORY AND PHYSICAL CHIEF COMPLAINTS: Chest pain, leg pain and some back pain. HISTORY OF PRESENT ILLNESS: This 46-year-old woman with a past medical history of multiple medical problems, including asthma, GERD, history of legal blindness, glaucoma, anxiety, being followed by Dr. Narda Godoy in the outpatient setting, tested positive for COVID last week. The patient had upper respiratory symptoms initially, but now the patient is complaining of bilateral leg pains and some chest pain and back pain. Patient has a history of DVT and pulmonary embolism. Patient was concerned and she came to [facility] and was admitted for evaluation and treatment. The D-dimer was found to be 1.07 and glucose 104. The patient was found to be not hypoxic. Patient had some bradycardia, which the patient also experienced previously. The EKG showed sinus bradycardia. The patient also underwent a chest CTA which was reviewed personally by me and showed no evidence of any pulmonary embolism. The lungs are also relatively free of any pneumonic infiltrate at this time. The patient was admitted for further evaluation and treatment. Ultrasound of the leg was also negative. There is no history of any fever, rigors or chills at this time. PAST MEDICAL HISTORY: History of asthma, GERD, legal blindness, glaucoma and depression. HOME MEDICATIONS: Reviewed. They include acetazolamide, pilocarpine, latanoprost, dorzolamide, DM, aspirin. Doses are reviewed. ALLERGIES: NONE. FAMILY HISTORY: History of heart issues in the family. SOCIAL HISTORY: No history of smoking. No history of alcohol intake. REVIEW OF SYSTEMS: ENT: As mentioned earlier. CARDIOVASCULAR SYSTEM: As mentioned earlier. RESPIRATORY SYSTEM: As mentioned earlier. GI: No nausea, vomiting, diarrhea. : No dysuria. NERVOUS SYSTEM: No numbness, weakness. ALLERGY/IMMUNOLOGY: No asthma or hay fever. MUSCULOSKELETAL: As mentioned earlier. HEMATOLOGY/ONCOLOGY: No history of anemia. ENDOCRINE: No history of diabetes or hypothyroidism. CONSTITUTIONAL: As mentioned earlier. DERMATOLOGY: Negative. RHEUMATOLOGY: Negative. PSYCHIATRY: As mentioned earlier. PHYSICAL EXAMINATION: Patient is alert and oriented x3. Pulse 58, blood pressure 90/52, respiration 18, temperature 98.4, pulse ox 98% on room air. HEENT: Conjunctivae normal. NECK: No jugular venous distention. CARDIOVASCULAR: S1, S2 muffled. RESPIRATION: Breath sounds diminished at the bases. No rhonchi. No crackles. ABDOMEN: Soft, nontender. No mass palpable. LEGS: No edema. No swelling. NERVOUS SYSTEM: Higher functions as mentioned earlier. Moves all 4 limbs. No focal motor or sensory deficit. LYMPHATICS: No lymph node palpable in neck, axillae or groin. SKIN: No ulcer, rash, bleeding. JOINTS: No active deforming arthropathy. LABS: CBC within normal limits. D-dimer is 1.07, CO2 is 21, glucose 104. ASSESSMENT: 1. Acute COVID-19 infection with chest pain with no evidence of any pulmonary embolism or deep vein thrombosis. 2. Rule out acute coronary syndrome. 3. Elevated D-dimer with no evidence of pulmonary embolism. 4. Elevated random glucose. 5. History of asthma. 6. History of gastroesophageal reflux disease. 7. History of legal blindness and glaucoma. 8. History of ESBL. 9. History of cystitis. 10.History of anxiety, depression. 11.Obesity with body mass index of 34.7. 12.No blood transfusion per the patient. 13.FULL CODE. RECOMMENDATIONS AND DISCUSSION: In this 46-year-old woman who presented with multiple complex medical issues, at this time I recommend to continue current medications, continue symptomatic treatment. Repeat labs. Cardiology consultation. Rule out myocardial infarction. Resume the home medications. Guarded prognosis because of multiple complex medical issues. Further recommendations to follow. A copy of this dictation is being forwarded to Dr. Narda Godoy, who is the primary physician. MMODL / RAMAKRISHNAN: [id number] / MTDD
[2021-09-11] MEDS: ZINC SULFATE 220 MG CAP PO SCH ×2 (07:20→08:27)
[2021-09-11] MEDS: ENOXAPARIN 40 MG/0.4 ML SYRINGE SQ SCH (08:27)
[2021-09-11] MEDS: CHOLECALCIFEROL 25 MCG (1000 IU) TABLET PO SCH (08:27)
[2021-09-11] MEDS: ASCORBIC ACID 500 MG TAB PO SCH (08:27)
[2021-09-11 09:08] LABS: Basophils # (A) 0.03 X 10*3/uL (0.00-0.10); Basophils % (A) 0.9 %; Eosinophils % (A) 2.8 %; HCT 37.6 % (37.2-46.3); HGB 12.3 g/dL (12.0-15.0); Lymphocytes # (A) 1.56 X 10*3/uL (0.90-5.00); Lymphocytes % (A) 44.3 %; MCH 30.2 pg (27.0-32.0); MCHC 32.7 g/dL (32.0-37.0); MCV 92.4 fL (80.0-97.0); Mean Platelet Volume 12.9 fL (9.5-12.2); Monocytes # (A) 0.29 X 10*3/uL (0.20-1.00); Monocytes % (A) 8.2 %; Neutrophils # (A) 1.53 X 10*3/uL (1.80-7.70); Neutrophils % (A) 43.5 %; Platelet Count 163 X 10*3/uL (140-440); RBC 4.07 X 10*6/uL (4.10-5.20); RDW 12.7 % (11.5-14.5); WBC 3.52 X 10*3/uL (4.50-10.00)
[2021-09-11 09:32] LABS: African American GFR (CKD) 113.4 (60.0-200.0); Anion Gap 9.5 mmol/L (10.00-18.00); BUN/Creat Ratio 16.49 Ratio (12.00-20.00); Blood Urea Nitrogen 12.2 mg/dL (9.0-27.0); Calcium 8.5 mg/dL (8.7-10.3); Carbon Dioxide 19.5 mmol/L (20.0-27.5); Non-African American GFR(CKD) 97.8 (60.0-200.0); Potassium 3.8 mmol/L (3.5-5.5)
--- NOTE | 2021-09-11 12:24 | P.CRDCN ---
History of Present Illness History of present illness: This is a 46-year-old female past medical history of GERD, glaucoma, DVTs, PEs secondary to COVID-19 February/March 2021 was treated with Eliquis. 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 We are consulted for chest pain. She presents to the emergency department with complaints of upper respiratory symptoms, shortness of breath, exertional dyspnea, left sided chest pain. Her chest pain is located in the left side of her chest. Describes it sometimes as sharp and burning. Non- radiating, non-exertional. Pain is worse with belching and coughing. Patient also with some tenderness to palpation to left side of chest. She denies injury. She denies nausea, vomiting, lightheadedness, dizziness. Denies any orthopnea, PND. She states she was tested positive for covid at [facility] September 02. She denies history of CAD, [place], Stroke, Diabetes or hypertension. She denies smoking. Her family history includes father has "heart problems" unknown details. She states she was recently at her primary office, she states her heart rate was low in the mid 40s-50s and was told she may need evaluation by pot annealer. She denies any lightheadedness, dizziness, palpitations, or syncope or near syncope. DIAGNOSTICS EKG reveals sinus bradycardia, heart rate 65, no significant ST ST-T wave abnormalities. Telemetry tracings indicate sinus rhythm, heart rate 4560s, no significant pauses or high degree AV block noted Venous Doppler negative for DVT bilaterally CT chest negative for pulmonary embolism. no aneurysm or dissection. Most recent echocardiogram December 2020 revealed EF 55-60%, mild mitral regurgitation, mild tricuspid regurgitation. Laboratory reviewed, WBC 3.5, hemoglobin 12.3, platelets 163, troponin negative 3, covid-19 Positive, sodium 139, potassium 3.8, BUN 12, serum creatinine 0.7. Current home medications include Acetazolamide, Isopto Carpine, Latanoprost, Dorzolamide/Timolol, Alphagan, aspirin 81mg nightly. REVIEW OF SYSTEMS At the time of my exam: CONSTITUTIONAL: Denies fever or chills. CARDIOVASCULAR: Denies chest pain, shortness of breath, orthopnea, PND or palpitations. RESPIRATORY: Denies cough. GASTROINTESTINAL: Denies abdominal pain, diarrhea, constipation, nausea or vomiting. MUSCULOSKELETAL: Denies myalgias. NEUROLOGIC: Denies numbness, tingling, headacbe or weakness. ENDOCRINE: Denies fatigue, weight change, polydipsia or polyurina. GENITOURINARY: Denies burning, hematuria or urgency with micturation. HEMATOLOGIC: Denies history of anemia or bleeding. PHYSICAL EXAMINATION Vitals reviewed CONSTITUTIONAL: No apparent distress. HEENT: Head is normocephalic. Pupils are equal, round. Sclerae anicteric. Mucous membranes of the mouth are moist. No JVD. No carotid bruit. CHEST EXAMINATION: Lungs are clear to auscultation. Some tenderness palpation to left side of chest HEART EXAMINATION: Regular rate and rhythm. S1, S2 heard. ABDOMEN: Soft, nontender. Positive bowel sounds. EXTREMITIES: no lower extremity edema and no calf tenderness. NEUROLOGIC EXAMINATION: Patient is awake, alert and oriented x3. ASSESSMENT Chest pain, atypical, acute coronary syndrome has been ruled out Covid-19 Infection Sinus bradycardia History of GERD History of glaucoma History of DVT and pulmonary embolsim secondary to COVID-19 Summer 2020 was treated with Eliquis Elevated D dimer, CT chest negative for PE, Ultrasound dopplers negative for DVT bilaterally PLAN From a cardiology perspective, chest pain is atypical, acute coronary syndrome has been ruled out. We will obtain limited echocardiogram to evaluate LV function. If no acute findings on echocardiogram, no further inpatient cardiology workup is needed at this time. Patient may follow up as an outpatient. Nurse Practitioner note has been reviewed, I agree with a documented findings and plan of care. Patient was seen and examined. Past Medical History Past Medical History: Asthma, Eye Disorder, GERD/Reflux Additional Past Medical History / Comment(s): Pt legally blind/glaucoma, chronic upper back pain, spinal meningitis as child, recurrent UTIs with recent UTI. PT REQUESTS THAT SHE RECEIVES NO BLOOD. History of Any Multi-Drug Resistant Organisms: ESBL Date of last positivie culture/infection: 08/13/16 MDRO Source:: urine e.coli ESBL Past Surgical History: Section, Tubal Ligation Additional Past Surgical History / Comment(s): sinus and multiple eye surgery Past Anesthesia/Blood Transfusion Reactions: Postoperative Nausea & Vomiting (PONV) Past Psychological History: Anxiety, Depression Smoking Status: Never smoker Past Alcohol Use History: None Reported Past Drug Use History: None Reported - Past Family History Mother Family Medical History: No Reported History Father Family Medical History: Diabetes Mellitus Additional Family Medical History / Comment(s): Some kind of heart issue. Medications and Allergies Home Medications Medication Instructions Recorded Confirmed Type Brimonidine Tartrate [Alphagan P 1 drop BOTH EYES TID 12/21/20 09/10/21 History 0.2% Ophth Soln] Dorzolamide/Timolol/Pf 1 drop BOTH EYES TID 12/21/20 09/10/21 History [Dorzolamide 2%-Timolol 0.5%] Latanoprost Ophth [Xalatan 0.005%] 1 drop BOTH EYES HS 12/21/20 09/10/21 History Pilocarpine 1% Ophth Soln [Isopto 1 drop BOTH EYES TID 12/21/20 09/10/21 History Carpine 1%] Aspirin EC [Ecotrin Low Dose] 81 mg PO HS 09/10/21 09/10/21 History Ergocalciferol [Vitamin D2 (1250 1,250 mcg PO Q14D 09/10/21 09/10/21 History Mcg = 56768 Iu)] acetaZOLAMIDE [acetaZOLAMIDE ER] 500 mg PO BID 09/10/21 09/10/21 History Allergies Allergy/AdvReac Type Severity Reaction Status Date / Time No Known Allergies Allergy Verified 09/10/21 16:09 Physical Exam Vitals: Vital Signs Temp Pulse Resp BP Pulse Ox 09/11/21 04:30 98.2 F 75 16 101/61 09/11/21 02:00 17 09/11/21 01:20 52 L 15 102/67 09/11/21 00:20 66 17 09/10/21 19:40 51 L 16 102/67 09/10/21 19:10 54 L 14 104/52 09/10/21 19:09 98.4 F 58 L 18 104/52 98 09/10/21 17:01 62 18 136/78 100 09/10/21 15:22 56 L 18 121/65 100 09/10/21 12:33 98.4 F 75 18 151/90 98 Results 09/11/21 06:36 09/11/21 06:36 Cardiac Enzymes 09/10/21 09/10/21 09/10/21 Range/Units 13:40 13:40 21:37 AST 14 (14-36) U/L Troponin I <0.012 <0.012 (0.000-0.034) ng/mL 09/11/21 Range/Units 00:21 AST (14-36) U/L Troponin I <0.012 (0.000-0.034) ng/mL Coagulation 09/10/21 Range/Units 13:40 PT 10.3 (9.0-12.0) sec APTT 24.0 (22.0-30.0) sec CBC 09/10/21 Range/Units 13:40 WBC 5.1 (3.8-10.6) k/uL RBC 4.58 (3.80-5.40) m/uL Hgb 13.7 (11.4-16.0) gm/dL Hct 42.6 (34.0-46.0) % Plt Count 189 (150-450) k/uL Comprehensive Metabolic Panel 09/10/21 Range/Units 13:40 Sodium 139 (137-145) mmol/L Potassium 4.0 (3.5-5.1) mmol/L Chloride 110 H (98-107) mmol/L Carbon Dioxide 21 L (22-30) mmol/L BUN 14 (7-17) mg/dL Creatinine 0.82 (0.52-1.04) mg/dL Glucose 104 H (74-99) mg/dL Calcium 8.9 (8.4-10.2) mg/dL AST 14 (14-36) U/L ALT 8 (4-34) U/L Alkaline Phosphatase 71 (38-126) U/L Total Protein 6.9 (6.3-8.2) g/dL Albumin 4.0 (3.5-5.0) g/dL Current Medications Generic Name Dose Route Start Last Admin Trade Name Freq PRN Reason Stop Dose Admin Acetaminophen 650 mg 09/10/21 15:46 09/10/21 21:00 Acetaminophen Tab 325 Mg Tab PO 650 mg Q6HR PRN Administration Mild Pain or Fever > 100.5 Ascorbic Acid 500 mg 09/10/21 20:00 09/11/21 08:27 Ascorbic Acid 500 Mg Tab PO 500 mg DAILY PANTERA Administration Cholecalciferol 25 mcg 09/10/21 20:00 09/11/21 08:27 Cholecalciferol 25 Mcg (1000 Iu) Tablet PO 25 mcg DAILY PANTERA Administration Enoxaparin Sodium 40 mg 09/10/21 20:00 09/11/21 08:27 Enoxaparin 40 Mg/0.4 Ml Syringe SQ 40 mg DAILY PANTERA Administration Naloxone HCl 0.2 mg 09/10/21 15:46 Naloxone 0.4 Mg/Ml 1 Ml Vial IV Q2M PRN Opioid Reversal Zinc Sulfate 220 mg 09/10/21 20:00 09/11/21 08:27 Zinc Sulfate 220 Mg Cap PO 220 mg DAILY PANTERA Administration 09/10/21 13:40 09/10/21 13:40
[2021-09-11] MEDS ORDERED: HYDROcodone/APAP 5-325MG 1 EACH TAB PO PRN (13:23)
--- NOTE | 2021-09-11 14:45 | XR ---
EXAMINATION TYPE: XR chest 1V portable DATE OF EXAM: 09/11/2021 COMPARISON: Chest x-ray 01/19/2021 HISTORY: Covid infection TECHNIQUE: Single frontal view of the chest is obtained. FINDINGS: There is no focal air space opacity, pleural effusion, or pneumothorax seen. The cardiac silhouette size is within normal limits. The osseous structures are intact. IMPRESSION: No acute process.
[2021-09-11] MEDS: PANTOPRAZOLE 40 MG/10 ML VIAL IVP SCH ×2 (15:09→20:16)
--- NOTE | 2021-09-11 16:31 | ECHOF ---
Referral Reason:LV function MEASUREMENTS -------- HEIGHT: 167.6 cm WEIGHT: 97.5 kg BP: 101/61 IVSd: 1.0 cm (0.6 - 1.1) LVIDd: 4.5 cm (3.9 - 5.3) LVPWd: 1.0 cm (0.6 - 1.1) IVSs: 1.3 cm LVIDs: 2.9 cm LVPWs: 1.0 cm FINDINGS -------- Sinus rhythm. This was a technically difficult study with suboptimal views. Limited Study Covid protocol followed for positive patient. The left ventricular size is normal. Left ventricular wall thickness is normal. Overall left vent ricular systolic function is normal with, an EF between 55 - 60 %. There is no pericardial effusion. CONCLUSIONS -------- 1. The left ventricular size is normal. 2. Left ventricular wall thickness is normal. 3. Overall left ventricular systolic function is normal with, an EF between 55 - 60 %. 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
--- NOTE | 2021-09-11 16:36 | PN ---
PROGRESS NOTE DATE OF SERVICE: 09/11/2021 This 46-year-old woman was admitted with chest pain. Patient is Covid positive. The chest CTA did not show any acute abnormality. The troponins are negative. Venous Doppler was also negative. Patient had previous history of recent history of pulmonary embolism and as well as PE. Because of that, the patient was concerned. The CT angio showed not much of pneumonia this time. A chest x-ray was also done which showed normal vascular markings. No chest pain. No palpitations. No fever. EXAM: Alert and oriented x two. Pulse 75, blood pressure 101/60, respirations 16, temperature 98.2. Pulse ox 100 percent on room air. HEENT: Conjunctivae normal. Neck: No JVD. Cardiovascular: S1, S2 muffled. Respiratory: Breath sounds diminished in the bases. No rhonchi. No crackles. Abdomen: Soft, nontender. Legs are no edema. No swelling. Nervous system: No focal deficits. LABS: WBC 3.8, hemoglobin 5.2, otherwise other labs are noted. ASSESSMENT: 1. Chest pain, rule out coronary artery disease, myocardial infarction ruled out, possibly related to Covid 19 infection. 2. Acute COVID-19 infection. 3. History of recent pulmonary embolus and DVT. 4. No evidence of any current pulmonary embolism or deep vein thrombosis. 5. Elevated D-dimer without any evidence of pulmonary embolism. 6. Elevated random glucose. 7. History of asthma. 8. History of gastroesophageal reflux disease. 9. History of legal blindness, glaucoma. 10.History of ESBL. 11.History of cystitis. 12.History of anxiety, depression. 13.Obesity with body mass index of 34.7. 14.No blood transfusion per chart. 15.FULL CODE. RECOMMENDATIONS AND DISCUSSION: Recommend to continue current medications, symptomatic treatment. Otherwise, closely follow with Cardiology and recommend infectious disease evaluation and watch the patient overnight. Rule out the possibility of acute coronary syndrome. Further recommendations to follow. Follow with cardiology. Guarded prognosis. MMODL / IJN: [id number] /
[2021-09-11] MEDS: ACETAMINOPHEN TAB 325 MG TAB PO PRN (23:51)
[2021-09-12 08:02] VITALS: BP 129/60; PULSE 53; RESP 16; TEMP 96.3
--- NOTE | 2021-09-12 08:08 | P.CONS ---
History of Present Illness - Reason for Consult Consult date: 09/11/21 covid 19 infection Requesting physician: Poornima Mcarthur - Chief Complaint shortness of breath and leg swelling x few days - History of Present Illness History of present illness : Patient is a 46-year female who apparently did have a COVID-19 infection her last treatment Katie complicated by development of DVT and PE patient subsequently never got Covid vaccination patient presenting to [facility] yesterday for evaluation of some fever and chills and did have a positive Covid test in the outpatient setting for about a week was complaining of chest pain shortness of breath and lower extremity edema she was concerned that she was having another DVT and PE patient on presentation to the hospital was afebrile patient is not hypoxic or need for supplemental oxygen therapy patient did have a normal white count with no lymphopenia D-dimer was mildly elevated creatinine was normal liver exams are normal cardiac exam has been negative Covid testing was positive patient did have a CT angiogram of the chest negative for PE patient also have a lower e xtremity Doppler no evidence of DVT both legs infectious was consulted for further management Review of system: CONSTITUTIONAL: Positive for weakness along with low-grade fever. EYES: No complaint. ENT: No complaint. RESPIRATORY: As per history of present illness. CARDIOVASCULAR: No complaint. GENITOURINARY: No complaint. GASTROINTESTINAL: No complaint. MUSCULOSKELETAL: No complaint. INTEGUMENTARY: No complaint. PSYCHOLOGIC: No complaint. ENDOCRINE: No complaint. NEUROLOGIC: No complaint. Past medical history : Reviewed, documented below Past surgical history : Reviewed, documented below Social history: Reviewed, documented below Medications: Reviewed, as documented below EXAMINATION: Vital sigans= Reviewed and documented below GENERAL DESCRIPTION: Middle-aged female lying in bed, no distress. No tachypnea or accessory muscle of respiration use. HEENT: Shows Pallor , no scleral icterus. Oral mucous membrane is dry. NECK: Trachea central, no thyromegaly. LUNGS: Unlabored breathing. Clear to auscultation anteriorly. No wheeze or crackle. HEART: S1, S2, regular rate and rhythm. ABDOMEN: Soft, no tenderness , guarding or rigidity EXTREMITIES: No edema of feet. SKIN: No rash, no masses palpable. NEUROLOGICAL: The patient is awake, alert, oriented x3, mood and affect normal. LABS AND RADIOLOGY: Reviewed results see below Assessment : Patient presented to hospital with shortness of breath chest pain lower extremity swelling in this patient with a history of COVID-19 infection last December complicated by DVT and PE and did have a positive Covid test for about a week being her second infection unfortunately patient did not get a vaccination after her first episode which may have prevented the second infection patient currently with no evidence of any DVT and PE there is no evidence of any pneumonia on the CT angiogram of the chest and the patient not hypoxic treatment will be mostly supportive Plan: 1-no need for remdesivir or steroids and the patient not hypoxic 2-we will obtain SARS-CoV-2 antibodies 3-continue with zinc ascorbic acid 4-she has been strongly advised to get vaccination for the COVID-19 after recovery from current illness We will follow on clinical condition and cultures to further adjust medication if needed Thank you for this consultation we will follow the patient along with you Past Medical History Past Medical History: Asthma, Deep Vein Thrombosis (DVT), Eye Disorder, GERD/Reflux, Pulmonary Embolus (PE) Additional Past Medical History / Comment(s): Pt has bilateral glaucoma with L eye blindness and R eye legally blind, chronic upper back pain, spinal meni ngitis as child, DVT R leg, bilateral PEs, recurrent UTIs with recent UTI. PT REQUESTS THAT SHE RECEIVES NO BLOOD. History of Any Multi-Drug Resistant Organisms: ESBL Year Discovered:: 08/13/16 MDRO Source:: urine e.coli ESBL Past Surgical History: Section, Tubal Ligation Additional Past Surgical History / Comment(s): sinus and multiple eye surgery Past Anesthesia/Blood Transfusion Reactions: Postoperative Nausea & Vomiting (PONV) Smoking Status: Never smoker - Past Family History Mother Family Medical History: No Reported History Father Family Medical History: Diabetes Mellitus Additional Family Medical History / Comment(s): Some kind of heart issue. Medications and Allergies Home Medications Medication Instructions Recorded Confirmed Type Brimonidine Tartrate [Alphagan P 1 drop BOTH EYES TID 12/21/20 09/10/21 History 0.2% Ophth Soln] Dorzolamide/Timolol/Pf 1 drop BOTH EYES TID 12/21/20 09/10/21 History [Dorzolamide 2%-Timolol 0.5%] Latanoprost Ophth [Xalatan 0.005%] 1 drop BOTH EYES HS 12/21/20 09/10/21 History Pilocarpine 1% Ophth Soln [Isopto 1 drop BOTH EYES TID 12/21/20 09/10/21 History Carpine 1%] Aspirin EC [Ecotrin Low Dose] 81 mg PO HS 09/10/21 09/10/21 History Ergocalciferol [Vitamin D2 (1250 1,250 mcg PO Q14D 09/10/21 09/10/21 History Mcg = 56162 Iu)] acetaZOLAMIDE [acetaZOLAMIDE ER] 500 mg PO BID 09/10/21 09/10/21 History Allergies Allergy/AdvReac Type Severity Reaction Status Date / Time No Known Allergies Allergy Verified 09/10/21 16:09 Physical Exam Vitals: Vital Signs Temp Pulse Pulse Resp BP BP Pulse Ox 09/11/21 15:00 97.3 F L 68 20 104/61 97 09/11/21 09:21 100 09/11/21 04:30 98.2 F 75 16 101/61 09/11/21 02:00 17 09/11/21 01:20 52 L 15 102/67 09/11/21 00:20 66 17 09/10/21 19:40 51 L 16 102/67 09/10/21 19:10 54 L 14 104/52 09/10/21 19:09 98.4 F 58 L 18 104/52 98 09/10/21 17:01 62 18 136/78 100 Intake and Output 09/11/21 09/11/21 09/11/21 06:59 14:59 22:59 Other: # Voids 3 Weight 97.522 kg Results CBC & Chem 7: 09/11/21 06:36 09/11/21 06:36 Labs: Abnormal Lab Results - Last 24 Hours (Table) 09/10/21 09/11/21 09/11/21 Range/Units 17:00 06:36 06:36 WBC 3.52 L (4.50-10.00) X 10*3/uL RBC 4.07 L (4.10-5.20) X 10*6/uL MPV 12.9 H (9.5-12.2) fL Neutrophils # 1.53 L (1.80-7.70) X 10*3/uL Chloride 110 H (96-109) mmol/L Carbon Dioxide 19.5 L (20.0-27.5) mmol/L Anion Gap 9.50 L (10.00-18.00) mmol/L Calcium 8.5 L (8.7-10.3) mg/dL Coronavirus (PCR) Detected A (Not Detectd)
[2021-09-12] MEDS: PANTOPRAZOLE 40 MG/10 ML VIAL IVP SCH (10:04)
[2021-09-12] MEDS: ENOXAPARIN 40 MG/0.4 ML SYRINGE SQ SCH (10:04)
[2021-09-12] MEDS: ZINC SULFATE 220 MG CAP PO SCH (10:05)
[2021-09-12] MEDS: CHOLECALCIFEROL 25 MCG (1000 IU) TABLET PO SCH (10:05)
[2021-09-12] MEDS: ASCORBIC ACID 500 MG TAB PO SCH (10:05)
--- NOTE | 2021-09-12 16:46 | DS ---
DISCHARGE SUMMARY DATE OF SERVICE: 09/12/2021 FINAL DIAGNOSES: 1. Chest pain, myocardial infarction ruled out. Rule out coronary artery disease. 2. Acute Covid 19 infection. 3. History of recent pulmonary embolus and deep vein thrombosis. 4. No evidence of current pulmonary embolism, deep vein thrombosis. 5. Elevated D-dimer with no evidence of pulmonary embolism. 6. Elevated glucose. 7. History of asthma. 8. History of gastroesophageal reflux disease. 9. Legal blindness and glaucoma. 10.History of ESBL. 11.History of cystitis. 12.History of anxiety, depression. 13.Obesity with body mass index of 34.7. 14.No blood transfusion per patient per chart. 15.FULL CODE. DISCHARGE DISPOSITION: The patient will be discharged in stable condition with guarded prognosis. Discharge cleared by multiple consultants. HISTORY OF PRESENT ILLNESS: This 46-year-old woman was admitted with chest pain, myocardial infarction ruled out. PE and DVT is also ruled out. Improved significantly. Recommended close followup in the outpatient setting. On exam, vital signs stable. Cardiovascular: S1, S2. Nervous system: No focal deficits. DISCHARGE INSTRUCTIONS: 1. Diet cardiac diet. 2. Activity limited until follow up. 3. Follow up with Dr. Narda Godoy in 1-2 days. 4. Follow up with Cardiology as recommended. MEDICATIONS: 1. diamox 500 mg p.o. b.i.d. 2. Alphagan eye drops. 3. Dorzolamide 1 drop daily. 4. Aspirin 81 mg q.h.s. 5. Pilocarpine. 6. Vitamin D2 1.25 mg p.o. daily. 7. Xalatan as before. 8. Thorazine 210 mg p.o. 9. Tylenol p.r.n. 10.Vitamin C 500 mg. 11.Vitamin D3 25 mcg p.o. daily please. Follow up with Dr. Haney as recommended. MMODL / IJN: [id number] / MTDD
[2021-09-12] MEDS ORDERED: PANTOPRAZOLE 40 MG TABLET PO SCH (17:30)
== END 2021-09-12 14:49 | disposition home or self-care (01) ==
LOC: EC 12:23 → 6NMEDSUR 15:46 → 3NCARDOBS 09-11 08:51
PROVIDERS: ADMIT Internal Medicine; ATTEND Internal Medicine
DX: R07.89 Other chest pain (principal); U07.1 COVID-19; K21.9 Gastro-esophageal reflux disease without esophagitis; R79.89 Other specified abnormal findings of blood chemistry; H40.213 Acute angle-closure glaucoma, bilateral; J45.909 Unspecified asthma, uncomplicated; H54.8 Legal blindness, as defined in USA; G89.29 Other chronic pain; M54.6 Pain in thoracic spine; F32.A Depression, unspecified; F41.9 Anxiety disorder, unspecified; R00.1 Bradycardia, unspecified; M79.604 Pain in right leg; M79.605 Pain in left leg; E66.9 Obesity, unspecified; Z68.34 Body mass index [BMI] 34.0-34.9, adult; I08.1 Rheumatic disorders of both mitral and tricuspid valves; R50.9 Fever, unspecified; M79.89 Other specified soft tissue disorders; R73.9 Hyperglycemia, unspecified; R60.0 Localized edema; Z86.718 Personal history of other venous thrombosis and embolism; Z86.711 Personal history of pulmonary embolism; Z86.16 Personal history of COVID-19; Z79.82 Long term (current) use of aspirin; Z79.899 Other long term (current) drug therapy; Z86.61 Personal history of infections of the central nervous system; Z87.440 Personal history of urinary (tract) infections; Z86.19 Personal history of other infectious and parasitic diseases; Z16.24 Resistance to multiple antibiotics; Z71.9 Counseling, unspecified; Z83.3 Family history of diabetes mellitus; Z82.49 Family history of ischemic heart disease and other diseases of the circulatory system
CPT/HCPCS: 96372 ×3; 96374; 96376 ×2; 99285; 36415; 93005; 85379; 83880; 80053; 80048; 84443; 83735; 84484 ×2; 85025 ×2; 85610; 85730; 87635; 86769; 71045; 93970; 71275; G0378 ×4; C8924; J1650 ×3; C9113 ×2; Q9950; Q9967; J1644; 93308

== ENCOUNTER → 2021-09-15 | Outpatient (CLI) | payer OTHER ==
[2021-09-15 15:34] LABS: Basophils # (A) 0.06 X 10*3/uL (0.00-0.10); Basophils % (A) 1.4 %; Eosinophils # (A) 0.14 X 10*3/uL (0.04-0.35); Eosinophils % (A) 3.2 %; HCT 41.6 % (37.2-46.3); HGB 13.1 g/dL (12.0-15.0); Lymphocytes % (A) 29.8 %; MCH 29.2 pg (27.0-32.0); MCHC 31.5 g/dL (32.0-37.0); MCV 92.7 fL (80.0-97.0); Mean Platelet Volume 12.9 fL (9.5-12.2); Monocytes # (A) 0.27 X 10*3/uL (0.20-1.00); Monocytes % (A) 6.2 %; Neutrophils # (A) 2.57 X 10*3/uL (1.80-7.70); Neutrophils % (A) 58.9 %; Platelet Count 200 X 10*3/uL (140-440); RBC 4.49 X 10*6/uL (4.10-5.20); RDW 12.7 % (11.5-14.5); WBC 4.36 X 10*3/uL (4.50-10.00)
[2021-09-15 16:08] LABS: African American GFR (CKD) 103.8 (60.0-200.0); Anion Gap 10.5 mmol/L (10.00-18.00); BUN/Creat Ratio 14.57 Ratio (12.00-20.00); Blood Urea Nitrogen 11.6 mg/dL (9.0-27.0); Calcium 8.7 mg/dL (8.7-10.3); Carbon Dioxide 19.9 mmol/L (20.0-27.5); Non-African American GFR(CKD) 89.6 (60.0-200.0); Potassium 4.1 mmol/L (3.5-5.5)
== END | disposition home or self-care (01) ==
LOC: LABWHC1 09:20
PROVIDERS: ATTEND Registered Nurse
DX: U07.1 COVID-19 (principal); D64.9 Anemia, unspecified
CPT/HCPCS: 36415; 80048; 85025

== ENCOUNTER 2022-06-11 08:53 | Emergency (ER) | payer BC, OTHER ==
[2022-06-11 09:07] VITALS: RESP 18
--- NOTE | 2022-06-11 09:38 | ED ---
General Adult HPI - General Chief complaint: ENT Stated complaint: possible sinus infection Time Seen by Provider: 06/11/22 08:55 Source: patient, RN notes reviewed Mode of arrival: ambulatory Limitations: no limitations - History of Present Illness Initial comments: 47-year-old female presents emergency Department with chief complaint of sinus congestion pressure. Patient states that she has been sick for 3 weeks not improving with [id number] cough and cold medications. Patient states that she does have a bad tooth and right side but feels is on associated with her sinus congestion. She reports increasing cough when she lays flat no shortness breath no chest pain no abdominal issues patient has NO KNOWN DRUG ALLERGIES. - Related Data Home Medications Medication Instructions Recorded Confirmed Brimonidine Tartrate [Alphagan P 1 drop BOTH EYES TID 12/21/20 09/10/21 0.2% Ophth Soln] Dorzolamide/Timolol/Pf 1 drop BOTH EYES TID 12/21/20 09/10/21 [Dorzolamide 2%-Timolol 0.5%] Latanoprost Ophth [Xalatan 0.005%] 1 drop BOTH EYES HS 12/21/20 09/10/21 Pilocarpine 1% Ophth Soln [Isopto 1 drop BOTH EYES TID 12/21/20 09/10/21 Carpine 1%] Aspirin EC [Ecotrin Low Dose] 81 mg PO HS 09/10/21 09/10/21 Ergocalciferol [Vitamin D2 (1250 1,250 mcg PO Q14D 09/10/21 09/10/21 Mcg = 75272 Iu)] acetaZOLAMIDE [Diamox Sequels] 500 mg PO BID 09/10/21 09/10/21 Previous Rx's Medication Instructions Recorded Acetaminophen Tab [Tylenol] 650 mg PO Q6HR PRN tab 09/12/21 Ascorbic Acid [Vitamin C] 500 mg PO DAILY 14 Days #14 tab 09/12/21 Cholecalciferol [Vitamin D3 (25 25 mcg PO DAILY 14 Days #14 tablet 09/12/21 Mcg = 1000 Iu)] Zinc Sulfate [Orazinc] 220 mg PO DAILY 14 Days #14 cap 09/12/21 Allergies Allergy/AdvReac Type Severity Reaction Status Date / Time No Known Allergies Allergy Verified 06/11/22 09:07 Review of Systems ROS Statement: Those systems with pertinent positive or pertinent negative responses have been documented in the HPI. ROS Other: All systems not noted in ROS Statement are negative. 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 PT REQUESTS THAT SHE RECEIVES NO BLOOD. History of Any Multi-Drug Resistant Organisms: ESBL Date of last positivie culture/infection: 08/13/16 MDRO Source:: urine e.coli ESBL Past Surgical History: Section, Tubal Ligation Additional Past Surgical History / Comment(s): sinus and multiple eye surgery Past Anesthesia/Blood Transfusion Reactions: Postoperative Nausea & Vomiting (PONV) Past Psychological History: Anxiety, Depression Smoking Status: Never smoker - Past Family History Mother Family Medical History: No Reported History Father Family Medical History: Diabetes Mellitus Additional Family Medical History / Comment(s): Some kind of heart issue. General Exam Limitations: no limitations General appearance: alert, in no apparent distress Head exam: Present: atraumatic, normocephalic, normal inspection Eye exam: Present: normal appearance, PERRL, EOMI. Absent: scleral icterus, conjunctival injection, periorbital swelling ENT exam: Present: mucous membranes moist, TM's normal bilaterally, normal external ear exam, other (Right maxillary sinus tenderness). Absent: normal oropharynx (Postnasal drainage) Neck exam: Present: normal inspection, full ROM. Absent: tenderness, meningismus, lymphadenopathy Respiratory exam: Present: normal lung sounds bilaterally. Absent: respiratory distress, wheezes, rales, rhonchi, stridor Cardiovascular Exam: Present: regular rate, normal rhythm, normal heart sounds. Absent: systolic murmur, diastolic murmur, rubs, gallop, clicks Course Vital Signs 06/11/22 09:06 Temperature 97.8 F Pulse Rate 74 Respiratory 18 Rate Blood Pressure 165/88 O2 Sat by Pulse 100 Oximetry Medical Decision Making - Medical Decision Making 47-year-old presented for upper respiratory symptoms sinus pressure. Patient we treated for acute sinusitis that she has symptoms for 21 days. Patient was james mike on Augmentin she is advised that she needs to have recheck and follow-up and return if symptoms worsen or change in any other symptoms. Disposition Clinical Impression: Acute sinusitis Disposition: HOME SELF-CARE Condition: Stable Instructions (If sedation given, give patient instructions): Sinusitis (ED) Additional Instructions: Please return to the Emergency Department if symptoms worsen or any other concerns. Is patient prescribed a controlled substance at d/c from ED?: No Referrals: None,Stated [Primary Care Provider] - 1-2 days Time of Disposition: 09:38
[2022-06-11 10:05] VITALS: BP 124/86; PULSE 62; TEMP 98
== END 2022-06-11 10:08 | disposition home or self-care (01) ==
LOC: EC 08:53
DX: J32.9 Chronic sinusitis, unspecified (principal); J45.909 Unspecified asthma, uncomplicated; K21.9 Gastro-esophageal reflux disease without esophagitis; Z86.718 Personal history of other venous thrombosis and embolism; F41.9 Anxiety disorder, unspecified; F32.A Depression, unspecified; Z79.82 Long term (current) use of aspirin; Z79.899 Other long term (current) drug therapy
CPT/HCPCS: 99283

== ENCOUNTER 2023-03-19 12:46 | Emergency (ER) | payer OTHER ==
[2023-03-19 12:52] VITALS: RESP 16
[2023-03-19] MEDS ORDERED: RABIES VACCINE (PCEC) 2.5 UNIT KIT IM ONE (13:50)
[2023-03-19] MEDS ORDERED: BACITRACIN OINT 1 EACH PACKET TOPICAL ONE (13:50)
[2023-03-19] MEDS ORDERED: DIPH,PERTUS(ACELL)TETVAC-LF 0.5 ML VIAL IM ONE (13:50)
[2023-03-19] MEDS ORDERED: RABIES IMM GLOB 300 UNIT/2 ML VIAL IM ONE (13:50)
--- NOTE | 2023-03-19 13:56 | ED ---
Animal Bite HPI - General Chief Complaint: Animal Bite Stated Complaint: cat bite Time Seen by Provider: 03/19/23 13:38 Source: patient, RN notes reviewed Mode of arrival: ambulatory Limitations: no limitations - History of Present Illness Initial Comments: 47-year-old female presents emergency Department chief complaint of Right or left foot. Patient states her sister cat that bit her left foot states that there is a large amount of bleeding. Her tetanus is not up-to-date. She was unable to obtain cat and unsure on the vaccine status. Patient states he has bouts pain to the site. Patient offers no associated symptoms. - Related Data Home Medications Medication Instructions Recorded Confirmed Brimonidine Tartrate [Alphagan P 1 drop BOTH EYES TID 12/21/20 09/10/21 0.2% Ophth Soln] Dorzolamide/Timolol/Pf 1 drop BOTH EYES TID 12/21/20 09/10/21 [Dorzolamide 2%-Timolol 0.5%] Latanoprost Ophth [Xalatan 0.005%] 1 drop BOTH EYES HS 12/21/20 09/10/21 Pilocarpine 1% Ophth Soln [Isopto 1 drop BOTH EYES TID 12/21/20 09/10/21 Carpine 1%] Aspirin EC [Ecotrin Low Dose] 81 mg PO HS 09/10/21 09/10/21 Ergocalciferol [Vitamin D2 (1250 1,250 mcg PO Q14D 09/10/21 09/10/21 Mcg = 36051 Iu)] acetaZOLAMIDE [Diamox Sequels] 500 mg PO BID 09/10/21 09/10/21 Previous Rx's Medication Instructions Recorded Acetaminophen Tab [Tylenol] 650 mg PO Q6HR PRN tab 09/12/21 Ascorbic Acid [Vitamin C] 500 mg PO DAILY 14 Days #14 tab 09/12/21 Cholecalciferol [Vitamin D3 (25 25 mcg PO DAILY 14 Days #14 tablet 09/12/21 Mcg = 1000 Iu)] Zinc Sulfate [Orazinc] 220 mg PO DAILY 14 Days #14 cap 09/12/21 Amoxic-Pot Clav 875-125Mg 1 tab PO Q12HR #20 tab 06/11/22 [Augmentin 875-125] Amoxic-Pot Clav 875-125Mg 1 tab PO Q12HR #20 tab 03/19/23 [Augmentin 502-327] Allergies Allergy/AdvReac Type Severity Reaction Status Date / Time No Known Allergies Allergy Verified 03/19/23 12:47 Review of Systems ROS Statement: Those systems with pertinent positive or pertinent negative responses have been documented in the HPI. ROS Other: All systems not noted in ROS Statement are negative. 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 PT REQUESTS THAT SHE RECEIVES NO BLOOD. History of Any Multi-Drug Resistant Organisms: ESBL Date of last positivie culture/infection: 08/13/16 MDRO Source:: urine e.coli ESBL Past Surgical History: Section, Tubal Ligation Additional Past Surgical History / Comment(s): sinus and multiple eye surgery Past Anesthesia/Blood Transfusion Reactions: Postoperative Nausea & Vomiting (PONV) Past Psychological History: Anxiety, Depression Smoking Status: Never smoker Past Alcohol Use History: None Reported Past Drug Use History: Marijuana - Past Family History Mother Family Medical History: No Reported History Father Family Medical History: Diabetes Mellitus Additional Family Medical History / Comment(s): Some kind of heart issue. General Exam Limitations: no limitations General appearance: alert, in no apparent distress Head exam: Present: atraumatic, normocephalic, normal inspection Eye exam: Present: normal appearance, PERRL, EOMI. Absent: scleral icterus, conjunctival injection, periorbital swelling Respiratory exam: Present: normal lung sounds bilaterally. Absent: respiratory distress, wheezes, rales, rhonchi, stridor Cardiovascular Exam: Present: regular rate, normal rhythm, normal heart sounds. Absent: systolic murmur, diastolic murmur, rubs, gallop, clicks Extremities exam: Present: other (There is small puncture was noted on the left foot with no active bleeding) Course Vital Signs 03/19/23 12:47 Temperature 98.7 F Pulse Rate 50 L Respiratory 16 Rate Blood Pressure 160/87 O2 Sat by Pulse 99 Oximetry Medical Decision Making - Medical Decision Making Was pt. sent in by a medical professional or institution (Dr., PA, TEACHER DRAMA, urgent care, hospital, or group home...) When possible be specific @ -No Did you speak to anyone other than the patient for history (EMS, parent, family, police, friend...)? What history was obtained from this source @ -No Did you review nursing and triage notes (agree or disagree)? Why? @ -I reviewed and agree with nursing and triage notes Were old charts reviewed (outside hosp., previous admission, EMS record, old EKG, old radiological studies, urgent care reports/EKG's, group home records)? Report findings @ -No old charts were reviewed Differential Diagnosis (chest pain, altered mental status, abdominal pain women, abdominal pain men, vaginal bleeding, weakness, fever, dyspnea, syncope, headache, dizziness, GI bleed, back pain, seizure, CVA, palpatations, mental health, musculoskeletal)? @ -Cat bite, foot infection EKG interpreted by me (3pts min.). @ -None X-rays interpreted by me (1pt min.). @ -None done CT interpreted by me (1pt min.). @ -None done U/S interpreted by me (1pt. min.). @ -None done What testing was considered but not performed or refused? (CT, X-rays, U/S, labs)? Why? @ -None What meds were considered but not given or refused? Why? @ -None Did you discuss the management of the patient with other professionals (professionals i.e. NATASHA Rob, TEACHER DRAMA, lab, RT, psych nurse, high school social studies tutor, customer sales specialist, teacher, radiation officer, case resolution specialist)? Give summary @ -No Was smoking cessation discussed for >3mins.? @ -No Was critical care preformed (if so, how long)? @ -No Were there social determinants of health that impacted care today? How? (Homelessness, low income, unemployed, alcoholism, drug addiction, transportation, low edu. Level, literacy, decrease access to med. care, senior care, rehab)? @ -No Was there de-escalation of care discussed even if they declined (Discuss DNR or withdrawal of care, Hospice)? DNR status @ -No What co-morbidities impacted this encounter? (DM, HTN, Smoking, COPD, CAD, Cancer, CVA, ARF, Chemo, Hep., AIDS, mental health diagnosis, sleep apnea, morbid obesity)? @ -None Was patient admitted / discharged? Hospital course, mention meds given and route, prescriptions, significant lab abnormalities, going to OR and other pertinent info. @ -Discharged patient's tetanus is updated patient was given rabies vaccine will return a day 11/13/13 for further injection patient was placed on antibiotics. Undiagnosed new problem with uncertain prognosis? @ -No Drug Therapy requiring intensive monitoring for toxicity (Heparin, Nitro, Insulin, Cardizem)? @ -No Were any procedures done? @ -No Diagnosis/symptom? @ -cat Bite left foot Acute, or Chronic, or Acute on Chronic? @ -Acute Uncomplicated (without systemic symptoms) or Complicated (systemic symptoms)? @ -Uncomplicated Side effects of treatment? @ -No Exacerbation, Progression, or Severe Exacerbation? @ -No Poses a threat to life or bodily function? How? (Chest pain, [place], [place], pneumonia, PE, COPD, DKA, ARF, appy, cholecystitis, CVA, Diverticulitis, Homicidal, Suicidal, threat to staff... and all critical care pts) @ -No Disposition Clinical Impression: Cat bite Disposition: HOME SELF-CARE Condition: Stable Instructions (If sedation given, give patient instructions): Animal Bite (ED) Additional Instructions: Please return to the Emergency Department if symptoms worsen or any other concerns. Prescriptions: Amoxic-Pot Clav 875-125Mg [Augmentin 875-125] 1 tab PO Q12HR #20 tab Is patient prescribed a controlled substance at d/c from ED?: No Referrals: None,Stated [Primary Care Provider] - 1-2 days Time of Disposition: 13:56
[2023-03-19 16:20] VITALS: BP 118/76; PULSE 62; TEMP 99.1
== END 2023-03-19 16:23 | disposition home or self-care (01) ==
LOC: EC 12:46
DX: S91.352A Open bite, left foot, initial encounter (principal); J45.909 Unspecified asthma, uncomplicated; F12.90 Cannabis use, unspecified, uncomplicated; Z79.82 Long term (current) use of aspirin; Z79.899 Other long term (current) drug therapy; Z86.718 Personal history of other venous thrombosis and embolism; Z23 Encounter for immunization; W55.01XA Bitten by cat, initial encounter
CPT/HCPCS: 90377; 90471; 90472; 90675; 90715; 99283

== ENCOUNTER 2023-04-03 18:50 | Emergency (ER) | payer MEDICARE, OTHER ==
[2023-04-03 18:54] VITALS: TEMP 98.5
[2023-04-03] MEDS ORDERED: KETOROLAC 15 MG/ML 1 ML VIAL IVP STA (19:14)
[2023-04-03] MEDS ORDERED: ONDANSETRON 4 MG/2 ML VIAL IVP STA (19:14)
--- NOTE | 2023-04-03 19:31 | ED ---
Abdominal Pain HPI - General Chief Complaint: Abdominal Pain Stated Complaint: abd pain-left side Time Seen by Provider: 04/03/23 19:08 Source: patient Mode of arrival: ambulatory Limitations: no limitations, physical limitation - History of Present Illness Initial Comments: 48-year-old female presenting with chief complaint of left-sided flank pain. Seamus obando states the pain started this morning. She admits to dysuria. Patient has visual impairment and is unsure if she has had hematuria. She admits to some diarrhea earlier today. She admits to nausea with no vomiting. No fevers or chills. No URI like symptoms. No chest pain or difficulty breathing. No vaginal discharge. - Related Data Home Medications Medication Instructions Recorded Confirmed Brimonidine Tartrate [Alphagan P 1 drop BOTH EYES TID 12/21/20 04/03/23 0.2% Ophth Soln] Dorzolamide/Timolol/Pf 1 drop BOTH EYES BID 12/21/20 04/03/23 [Dorzolamide 2%-Timolol 0.5%] Latanoprost Ophth [Xalatan 0.005%] 1 drop BOTH EYES HS 12/21/20 04/03/23 Pilocarpine 1% Ophth Soln [Isopto 1 drop BOTH EYES BID 12/21/20 04/03/23 Carpine 1%] Aspirin EC [Ecotrin Low Dose] 81 mg PO HS 09/10/21 04/03/23 Previous Rx's Medication Instructions Recorded Cephalexin [Keflex] 500 mg PO Q12HR 14 Days #28 cap 04/03/23 Ondansetron Odt [Zofran Odt] 4 mg PO Q8HR PRN #20 tab 04/03/23 Allergies Allergy/AdvReac Type Severity Reaction Status Date / Time No Known Allergies Allergy Verified 04/03/23 22:28 Review of Systems ROS Statement: Those systems with pertinent positive or pertinent negative responses have been documented in the HPI. ROS Other: All systems not noted in ROS Statement are negative. 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 PT REQUESTS THAT SHE RECEIVES NO BLOOD. History of Any Multi-Drug Resistant Organisms: ESBL Date of last positivie culture/infection: 08/13/16 MDRO Source:: urine e.coli ESBL Past Surgical History: Section, Tubal Ligation Additional Past Surgical History / Comment(s): sinus and multiple eye surgery Past Anesthesia/Blood Transfusion Reactions: Postoperative Nausea & Vomiting (PONV) Past Psychological History: Anxiety, Depression Smoking Status: Never smoker Past Alcohol Use History: None Reported Past Drug Use History: Marijuana - Past Family History Mother Family Medical History: No Reported History Father Family Medical History: Diabetes Mellitus Additional Family Medical History / Comment(s): Some kind of heart issue. General Exam Limitations: physical limitation (visual impairment) General appearance: alert, in no apparent distress Head exam: Present: atraumatic, normocephalic, normal inspection Eye exam: Present: normal appearance Neck exam: Present: normal inspection, full ROM Respiratory exam: Present: normal lung sounds bilaterally. Absent: respiratory distress, wheezes, rales, rhonchi, stridor Cardiovascular Exam: Present: regular rate, normal rhythm, normal heart sounds. Absent: systolic murmur, diastolic murmur, rubs, gallop, clicks GI/Abdominal exam: Present: soft, tenderness. Absent: distended, guarding, rebound, rigid Neurological exam: Present: alert, oriented X3, CN II-XII intact Psychiatric exam: Present: normal affect, normal mood Skin exam: Present: warm, dry, intact, normal color. Absent: rash Course Vital Signs 04/03/23 18:52 Temperature 98.5 F Pulse Rate 101 H Respiratory 22 Rate Blood Pressure 155/76 O2 Sat by Pulse 98 Oximetry Medical Decision Making - Medical Decision Making Was pt. sent in by a medical professional or institution (, PA, GRIEVANCE AND APPEALS COORDINATOR, urgent care, hospital, or jail...) When possible be specific @ -No Did you speak to anyone other than the patient for history (EMS, parent, family, police, friend...)? What history was obtained from this source @ -No Did you review nursing and triage notes (agree or disagree)? Why? @ -I reviewed and agree with nursing and triage notes Were old charts reviewed (outside hosp., previous admission, EMS record, old EKG, old radiological studies, urgent care reports/EKG's, jail records)? Report findings @ -No old charts were reviewed Differential Diagnosis (chest pain, altered mental status, abdominal pain women, abdominal pain men, vaginal bleeding, weakness, fever, dyspnea, syncope, headache, dizziness, GI bleed, back pain, seizure, CVA, palpatations, mental health, musculoskeletal)? @ -[facility] Differential Abdominal Pain Women: Appendicitis, Cholecystitis, diverticulosis, ischemic bowel, pancreatitis, hepatitis, UTI, gastroenteritis, AAA, incarcerated hernia, bowel obstruction, constipation, inflammatory bowel, hepatitis, peptic ulcer disease, splenic infarction, perforated viscus, vulvitis, ovarian torsion, PID, kidney stone, placenta abruption... This is not meant to be an all-inclusive list EKG interpreted by me (3pts min.). @ -As above X-rays interpreted by me (1pt min.). @ -None done CT interpreted by me (1pt min.). @ -CT shows some prominence of the left renal collecting system and bilateral hydronephrosis. Hydroureter however is not evident and no obstructing etiology is identified. Consider workup with IVP. U/S interpreted by me (1pt. min.). @ -None done What testing was considered but not performed or refused? (CT, X-rays, U/S, labs)? Why? @ -None What meds were considered but not given or refused? Why? @ -None Did you discuss the management of the patient with other professionals (professionals i.e. , PA, GRIEVANCE AND APPEALS COORDINATOR, lab, RT, psych nurse, family welfare social work professor, supervisor laboratory, teacher, probation officer, case filler)? Give summary @ -No Was smoking cessation discussed for >3mins.? @ -No Was critical care preformed (if so, how long)? @ -No Were there social determinants of health that impacted care today? How? (Homeles sness, low income, unemployed, alcoholism, drug addiction, transportation, low edu. Level, literacy, decrease access to med. care, group home, rehab)? @ -No Was there de-escalation of care discussed even if they declined (Discuss DNR or withdrawal of care, Hospice)? DNR status @ -No What co-morbidities impacted this encounter? (DM, HTN, Smoking, COPD, CAD, Cancer, CVA, ARF, Chemo, Hep., AIDS, mental health diagnosis, sleep apnea, morbid obesity)? @ -None Was patient admitted / discharged? Hospital course, mention meds given and route, prescriptions, significant lab abnormalities, going to OR and other pertinent info. @ -48-year-old female presenting with chief complaint of left-sided flank pain that started today. She admits to nausea with no vomiting. On physical examination there is left-sided abdominal tenderness. Lab work shows no leukocytosis or anemia. Sodium 135. Urine shows signs of infection with greater than 182 RBCs and WBCs. Negative hCG. CT shows prominence of the left renal collecting system and bilateral hydronephrosis, however there is no obstruction or hydroureter identified. Patient may require an IVP. She is treated here with 1 g of Rocephin and will be sent home on Keflex 500 mg twice a day for 14 days. She is educated on today's findings and of the need for follow-up with urology. Follow-up with PCP. Report back to ER with any new or worsening symptoms. Discussed return parameters and answered all questions. Patient conveyed verbal understanding and agreed to the plan. I discussed this case in detail with my attending Dr. Saul Undiagnosed new problem with uncertain prognosis? @ -No Drug Therapy requiring intensive monitoring for toxicity (Heparin, Nitro, Insulin, Cardizem)? @ -No Were any procedures done? @ -No Diagnosis/symptom? @ -Pyelonephritis Acute, or Chronic, or Acute on Chronic? @ -Acute Uncomplicated (without systemic symptoms) or Complicated (systemic symptoms)? @ -uncomplicated Side effects of treatment? @ -No Exacerbation, Progression, or Severe Exacerbation? @ -No Poses a threat to life or bodily function? How? (Chest pain, [place], [place], pneumonia, PE, COPD, DKA, ARF, appy, cholecystitis, CVA, Diverticulitis, Homicidal, Suicidal, threat to staff... and all critical care pts) @ -Low likelihood - Lab Data Result diagrams: 04/03/23 19:20 04/03/23 19:20 Lab Results 04/03/23 04/03/23 04/03/23 Range/Units 19:20 19:20 19:20 WBC 7.9 (3.8-10.6) k/uL RBC 4.27 (3.80-5.40) m/uL Hgb 13.3 (11.4-16.0) gm/dL Hct 39.0 (34.0-46.0) % MCV 91.4 (80.0-100.0) fL MCH 31.2 (25.0-35.0) pg MCHC 34.1 (31.0-37.0) g/dL RDW 13.1 (11.5-15.5) % Plt Count 149 L (150-450) k/uL MPV 10.1 Neutrophils % 77 % Lymphocytes % 15 % Monocytes % 5 % Eosinophils % 1 % Basophils % 0 % Neutrophils # 6.1 (1.3-7.7) k/uL Lymphocytes # 1.2 (1.0-4.8) k/uL Monocytes # 0.4 (0-1.0) k/uL Eosinophils # 0.1 (0-0.7) k/uL Basophils # 0.0 (0-0.2) k/uL Sodium (137-145) mmol/L Potassium (3.5-5.1) mmol/L Chloride (98-107) mmol/L Carbon Dioxide (22-30) mmol/L Anion Gap mmol/L BUN (7-17) mg/dL Creatinine (0.52-1.04) mg/dL Est GFR (CKD-EPI)AfAm (>60 ml/min/1.73 sqM) Est GFR (CKD-EPI)NonAf (>60 ml/min/1.73 sqM) Glucose (74-99) mg/dL Calcium (8.4-10.2) mg/dL Total Bilirubin (0.2-1.3) mg/dL AST (14-36) U/L ALT (4-34) U/L Alkaline Phosphatase (38-126) U/L Total Protein (6.3-8.2) g/dL Albumin (3.5-5.0) g/dL Urine Color Light Red Urine Appearance Turbid H (Clear) Urine pH 7.5 (5.0-8.0) Ur Specific [place] 1.017 (1.001-1.035) Urine Protein 3+ H (Negative) Urine Glucose (UA) Negative (Negative) Urine Ketones 1+ H (Negative) Urine Blood Large H (Negative) Urine Nitrite Negative (Negative) Urine Bilirubin Negative (Negative) Urine Urobilinogen <2.0 (<2.0) mg/dL Ur Leukocyte Esterase Large H (Negative) Urine RBC >182 H (0-5) /hpf Urine WBC >182 H (0-5) /hpf Ur Squamous Epith Cells 1 (0-4) /hpf Urine Bacteria Occasional H (None) /hpf Urine HCG, Qual Not Detected (Not Detectd) 04/03/23 Range/Units 19:20 WBC (3.8-10.6) k/uL RBC (3.80-5.40) m/uL Hgb (11.4-16.0) gm/dL Hct (34.0-46.0) % MCV (80.0-100.0) fL MCH (25.0-35.0) pg MCHC (31.0-37.0) g/dL RDW (11.5-15.5) % Plt Count (150-450) k/uL MPV Neutrophils % % Lymphocytes % % Monocytes % % Eosinophils % % Basophils % % Neutrophils # (1.3-7.7) k/uL Lymphocytes # (1.0-4.8) k/uL Monocytes # (0-1.0) k/uL Eosinophils # (0-0.7) k/uL Basophils # (0-0.2) k/uL Sodium 135 L (137-145) mmol/L Potassium 4.1 (3.5-5.1) mmol/L Chloride 103 (98-107) mmol/L Carbon Dioxide 24 (22-30) mmol/L Anion Gap 8 mmol/L BUN 8 (7-17) mg/dL Creatinine 0.79 (0.52-1.04) mg/dL Est GFR (CKD-EPI)AfAm >90 (>60 ml/min/1.73 sqM) Est GFR (CKD-EPI)NonAf >90 (>60 ml/min/1.73 sqM) Glucose 91 (74-99) mg/dL Calcium 8.8 (8.4-10.2) mg/dL Total Bilirubin 1.1 (0.2-1.3) mg/dL AST 23 (14-36) U/L ALT 14 (4-34) U/L Alkaline Phosphatase 82 (38-126) U/L Total Protein 6.7 (6.3-8.2) g/dL Albumin 3.8 (3.5-5.0) g/dL Urine Color Urine Appearance (Clear) Urine pH (5.0-8.0) Ur Specific [place] (1.001-1.035) Urine Protein (Negative) Urine Glucose (UA) (Negative) Urine Ketones (Negative) Urine Blood (Negative) Urine Nitrite (Negative) Urine Bilirubin (Negative) Urine Urobilinogen (<2.0) mg/dL Ur Leukocyte Esterase (Negative) Urine RBC (0-5) /hpf Urine WBC (0-5) /hpf Ur Squamous Epith Cells (0-4) /hpf Urine Bacteria (None) /hpf Urine HCG, Qual (Not Detectd) Disposition Clinical Impression: Pyelonephritis, Hydronephrosis Disposition: HOME SELF-CARE Condition: Fair Instructions (If sedation given, give patient instructions): Kidney Infection (ED) Additional Instructions: Follow-up with PCP and urologist. A suggestion has been provided for a PCP if you do not already have one. Report back to ER with any new or worsening symptoms. Take medication as prescribed. Take Motrin and Tylenol stated for pain control. Prescriptions: Cephalexin [Keflex] 500 mg PO Q12HR 14 Days #28 cap Ondansetron Odt [Zofran Odt] 4 mg PO Q8HR PRN #20 tab PRN Reason: Nausea Is patient prescribed a controlled substance at d/c from ED?: No Referrals: None,Stated [Primary Care Provider] - 1-2 days Rakan Keenan MD [STAFF PHYSICIAN] - 1-2 days [facility] [NON-[facility]] - 1-2 days Time of Disposition: 22:22
[2023-04-03] MEDS ORDERED: SODIUM CHLORIDE 0.9% 1,000 ML IV ONE (19:39)
[2023-04-03 20:10] LABS: Basophils % (A) 0 %; Eosinophils # (A) 0.1 k/uL (0-0.7); Eosinophils % (A) 1 %; HGB 13.3 gm/dL (11.4-16.0); Lymphocytes # (A) 1.2 k/uL (1.0-4.8); Lymphocytes % (A) 15 %; MCH 31.2 pg (25.0-35.0); MCHC 34.1 g/dL (31.0-37.0); MCV 91.4 fL (80.0-100.0); Mean Platelet Volume 10.1; Monocytes # (A) 0.4 k/uL (0-1.0); Monocytes % (A) 5 %; Neutrophils # (A) 6.1 k/uL (1.3-7.7); Neutrophils % (A) 77 %; Platelet Count 149 k/uL (150-450); RBC 4.27 m/uL (3.80-5.40); RDW 13.1 % (11.5-15.5); WBC 7.9 k/uL (3.8-10.6)
[2023-04-03 20:19] LABS: Appearance,Urine Turbid (Clear); Bacteria,Urine Occasional /hpf; Bilirubin,Urine Negative (Negative); Blood,Urine Large (Negative); Color,Urine Light Red; Glucose,Urine (UA) Negative (Negative); Ketones,Urine 1+ (Negative); Leukocyte Esterase,Urine Large (Negative); Nitrite,Urine Negative (Negative); PH, Urine 7.5 (5.0-8.0); Protein,Urine 3+ (Negative); RBC,Urine >182 /hpf (0-5); Specific Gravity,Urine 1.017 (1.001-1.035); Squamous Epithelial Cell,Urine 1 /hpf (0-4); Urobilinogen,Urine <2.0 mg/dL (<2.0); WBC,Urine >182 /hpf (0-5)
[2023-04-03] MEDS ORDERED: cefTRIAXone IN SWFI 1,000 MG/10 ML SYRINGE IVP STA (20:30)
[2023-04-03 20:42] LABS: ALT 14 U/L (4-34); AST 23 U/L (14-36); African American GFR (CKD) >90 (>60 ml/min/1.73 sqM); Albumin 3.8 g/dL (3.5-5.0); Alkaline Phosphatase 82 U/L (38-126); Anion Gap 8 mmol/L; Blood Urea Nitrogen 8 mg/dL (7-17); Calcium 8.8 mg/dL (8.4-10.2); Carbon Dioxide 24 mmol/L (22-30); Chloride 103 mmol/L (98-107); Glucose 91 mg/dL (74-99); Non-African American GFR(CKD) >90 (>60 ml/min/1.73 sqM); Potassium 4.1 mmol/L (3.5-5.1); Sodium 135 mmol/L (137-145); Total Bilirubin 1.1 mg/dL (0.2-1.3); Total Protein 6.7 g/dL (6.3-8.2)
--- NOTE | 2023-04-03 21:24 | CT ---
EXAMINATION TYPE: CT abdomen pelvis wo con DATE OF EXAM: 04/03/2023 COMPARISON: 03/03/2021 INDICATION: left side abdominal and flank pain DLP: 858.1 mGycm, Automated exposure control for dose reduction was used. CONTRAST: 0 mL of Isovue 300. Study performed without Oral Contrast TECHNIQUE: Axial images were obtained from above the diaphragm to the pubic rami in the axial plane a t 5 mm thick sections. Reconstructed images are reviewed on the computer in the coronal plane. FINDINGS: Limited CT sections are obtained the lung bases. The lung bases are clear. CT ABDOMEN: Liver: Normal Spleen: Normal Pancreas: Normal Adrenal glands: The adrenal glands are normal. Gallbladder: Normal Kidneys: No masses are evident. No hydronephrosis is present. There may be an extrarenal pelvis on the left. Renal pelvis appears somewhat prominent. Some peripelvic cysts may be present bilaterally. No obstructing etiology is evident. No hydroureter is evident. No renal stones are evident. Aorta: Normal Inferior vena cava: Normal. CT PELVIS: Loops of bowel within the abdomen and pelvis are normal. There are loops of bowel which are incom pletely distended or lack oral contrast limiting their evaluation. Appendix: Normal as visualized. Urinary bladder: Normal. Genitourinary structures: Uterus appears normal. Adnexa are normal. Osseous structures: No suspicious lytic or sclerotic lesions are evident. Scattered small bilateral inguinal lymphadenopathy is present. IMPRESSIONS: 1. There is some prominence of the left renal collecting system and bilateral hydronephrosis. Hydrou reter however is not evident and no obstructing etiology is identified. Consider workup with IVP.
[2023-04-03 23:21] VITALS: BP 119/64; PULSE 57; RESP 18
== END 2023-04-03 23:22 | disposition home or self-care (01) ==
LOC: EC 18:50
DX: N13.30 Unspecified hydronephrosis (principal); N12 Tubulo-interstitial nephritis, not specified as acute or chronic; J45.909 Unspecified asthma, uncomplicated; H40.9 Unspecified glaucoma; F12.90 Cannabis use, unspecified, uncomplicated; Z79.82 Long term (current) use of aspirin; Z79.899 Other long term (current) drug therapy
CPT/HCPCS: 36415; 80053; 85025; 81001; 81025; 87086; 74176; 99284; 96374; 96375 ×2; 96361; J2405; J0696; J1885

== ENCOUNTER 2023-07-16 15:46 | Emergency (ER) | payer MEDICARE, OTHER ==
--- NOTE | 2023-07-16 17:11 | ED ---
Female Urogenital HPI - General Chief complaint: Urogenital Stated complaint: poss UTI Time Seen by Provider: 07/16/23 17:02 Source: patient, RN notes reviewed Mode of arrival: ambulatory Limitations: no limitations - History of Present Illness Initial comments: This is a pleasant 48-year-old female presents to the emergency department complaining of dysuria, urinary frequency and irritative voiding for the past 2- 3 days. Patient has had many urinary tract infections in the past. He is prediabetic. No history of immunosuppression otherwise. Denies any hematuria. Denies any flank pain or abdominal pain. Is here vomiting. No chest pain or shortness of breath. No difficulties with bowel movements. No vaginal discharge. MD Complaint: dysuria Last Menstrual Period: 07/12/23 - Related Data Home Medications Medication Instructions Recorded Confirmed Brimonidine Tartrate [Alphagan P 1 drop BOTH EYES TID 12/21/20 04/03/23 0.2% Ophth Soln] Dorzolamide/Timolol/Pf 1 drop BOTH EYES BID 12/21/20 04/03/23 [Dorzolamide 2%-Timolol 0.5%] Latanoprost Ophth [Xalatan 0.005%] 1 drop BOTH EYES HS 12/21/20 04/03/23 Pilocarpine 1% Ophth Soln [Isopto 1 drop BOTH EYES BID 12/21/20 04/03/23 Carpine 1%] Aspirin EC [Ecotrin Low Dose] 81 mg PO HS 09/10/21 04/03/23 Previous Rx's Medication Instructions Recorded Cephalexin [Keflex] 500 mg PO Q12HR 14 Days #28 cap 04/03/23 Ondansetron Odt [Zofran Odt] 4 mg PO Q8HR PRN #20 tab 04/03/23 Nitrofurantoin Monohyd/M-Cryst 100 mg PO AC-BID 10 Days #20 cap 07/16/23 [Nitrofurantoin Hunt-Mcr 100 mg] Allergies Allergy/AdvReac Type Severity Reaction Status Date / Time No Known Allergies Allergy Verified 04/03/23 22:28 Review of Systems ROS Statement: Those systems with pertinent positive or pertinent negative responses have been documented in the HPI. ROS Other: All systems not noted in ROS Statement are negative. 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 PT REQUESTS THAT SHE RECEIVES NO BLOOD. History of Any Multi-Drug Resistant Organisms: ESBL Date of last positivie culture/infection: 08/13/16 MDRO Source:: urine e.coli ESBL Past Surgical History: Section, Tubal Ligation Additional Past Surgical History / Comment(s): sinus and multiple eye surgery Past Anesthesia/Blood Transfusion Reactions: Postoperative Nausea & Vomiting (PONV) Past Psychological History: Anxiety, Depression Smoking Status: Never smoker Past Alcohol Use History: None Reported Past Drug Use History: Marijuana - Past Family History Mother Family Medical History: No Reported History Father Family Medical History: Diabetes Mellitus Additional Family Medical History / Comment(s): Some kind of heart issue. General Exam - General Exam Comments Initial Comments: Patient does not appear to be ill or toxic. Vital signs stable, patient afebrile. Refill less than 2 seconds. No mottling. Cranial nerves II through XII grossly intact. Alert and oriented 4. Limitations: no limitations General appearance: alert, in no apparent distress Head exam: Present: atraumatic, normocephalic, normal inspection Eye exam: Present: normal appearance, PERRL, EOMI. Absent: scleral icterus, conjunctival injection, periorbital swelling ENT exam: Present: normal exam, mucous membranes moist Neck exam: Present: normal inspection, full ROM. Absent: tenderness, meningismus, lymphadenopathy Respiratory exam: Present: normal lung sounds bilaterally. Absent: respiratory distress, wheezes, rales, rhonchi, stridor, accessory muscle use Cardiovascular Exam: Present: regular rate, normal rhythm, normal heart sounds. Absent: systolic murmur, diastolic murmur, rubs, gallop, clicks GI/Abdominal exam: Present: soft, normal bowel sounds, other (Negative CVAT). Absent: distended, tenderness, guarding, rebound, rigid Extremities exam: Present: normal inspection, full ROM, normal capillary refill. Absent: tenderness, pedal edema, joint swelling, calf tenderness Back exam: Present: normal inspection Neurological exam: Present: alert, oriented X3, CN II-XII intact Psychiatric exam: Present: normal affect, normal mood Skin exam: Present: warm, dry, intact, normal color. Absent: rash Course Vital Signs 07/16/23 16:18 Temperature 98.6 F Pulse Rate 74 Respiratory 16 Rate Blood Pressure 118/75 O2 Sat by Pulse 98 Oximetry - Reevaluation(s) Reevaluation #1: 07/16/23 17:39 Patient evaluated prior to discharge, no distress, does not appear to be ill or toxic. Medical Decision Making - Medical Decision Making Was pt. sent in by a medical professional or institution? @ -no Did you speak to anyone other than the patient for history? @ no Did you review nursing and triage notes? @ -[agree or disagree, why?] Agree Were old charts reviewed? @ -no Differential Diagnosis? @ Differential diagnosis includes but not limited to: Urinary tract infection, acute cystitis, hemorrhagic cystitis, STI, not consistent with ureterolithiasis. Does not appear to be consistent with significant systemic infectious process. Consistent cardiopulmonary disease. And with other intra-abdominal or intrapelvic inflammatory versus infectious etiologies. EKG interpreted by me (3pts min.)? @ -[none] X-rays interpreted by me (1pt min.)? @ -[none] CT interpreted by me (1pt min.)? @ -[none] U/S interpreted by me (1pt. min.)? @ -[none] What testing was considered but not performed? (CT, X-rays, U/S, labs)? Why? @ [CT, X-rays, U/S, labs? Why?] What meds were considered but not given? Why? @ -[none] Did you discuss the management of the patient with other professionals? @ -[professionals i.e. Dr, PA, ENERGY AUDIT ADVISOR, Lab, RT, Psych Nurse, [place], Merchandising Internship, Teacher, Tack Welder, shoe parts caser? Give summary] Did you reconcile home meds? @ -[none] Was smoking cessation discussed for >3mins.? Nonsmoker @ -Nonsmoker Was critical care preformed (if so, how long)? @ -no Were there social determinants of health that impacted care today? How? (Homelessness, low income, unemployed, alcoholism, drug addiction, transportation, low edu. Level, literacy, decrease access to med. care, halfway, rehab)? @ -no Was there de-escalation of care discussed even if they declined? (Discuss DNR or withdrawal of care, Hospice)? @ -[Discuss DNR or withdrawal of care, Hospice?] What co-morbidities impacted this encounter? (DM, HTN, Smoking, COPD, CAD, Cancer, CVA, Hep., AIDS, mental health diagnosis, sleep apnea, morbid obesity)? @ -Prediabetes Was patient admitted / discharged? @ -Discharge, stable condition Undiagnosed new problem with uncertain prognosis? @ -Seems to be relatively minor acute cystitis, unlikely to cause threat to life or bodily function. Drug Therapy requiring intensive monitoring for toxicity (Heparin, Nitro, Insulin, Cardizem)? @ -no Were any procedures done? @ -no Diagnosis/symptom? @ -Acute cystitis Acute, or Chronic, or Acute on Chronic? @ -Acute Uncomplicated (without systemic symptoms) or Complicated (systemic symptoms)? @ -Uncomplicated Side effects of treatment? @ -[none] Exacerbation, Progression, or Severe Exacerbation] @ -[no] Poses a threat to life or bodily function? @ -[no] Reviewed the urine culture from the previous visit here on 04/03/2023. E. coli with multiple drug sensitivities. Patient was told to return to the ER for any signs or symptoms worsen. Told to return immediately if any other problems arise. All questions answered. Treat ment plan discussed. Patient in agreement Every effort has been made to ensure accuracy of this dictation. However, due to the limitations of electronic medical records and dictation devices, errors in charting still occur. - Lab Data Lab Results 07/16/23 Range/Units 17:11 Urine Color Yellow Urine Appearance Cloudy H (Clear) Urine pH 5.5 (5.0-8.0) Ur Specific [place] 1.018 (1.001-1.035) Urine Protein Negative (Negative) Urine Glucose (UA) Negative (Negative) Urine Ketones Negative (Negative) Urine Blood Negative (Negative) Urine Nitrite Negative (Negative) Urine Bilirubin Negative (Negative) Urine Urobilinogen <2.0 (<2.0) mg/dL Ur Leukocyte Esterase Large H (Negative) Urine RBC 53 H (0-5) /hpf Urine WBC 94 H (0-5) /hpf Ur Squamous Epith Cells 1 (0-4) /hpf Urine Bacteria Occasional H (None) /hpf Urine Mucus Occasional H (None) /hpf Disposition Clinical Impression: Acute cystitis, Trichomoniasis Disposition: HOME SELF-CARE Condition: Stable Instructions (If sedation given, give patient instructions): Urinary Tract Infection in Women (ED) Additional Instructions: Follow-up with your regular physician as directed. Return to the ER immediately if any symptoms worsen, new symptoms arise, or any other problems develop. Prescriptions: Nitrofurantoin Monohyd/M-Cryst [Nitrofurantoin Hunt-Mcr 100 mg] 100 mg PO AC-BID 10 Days #20 cap Is patient prescribed a controlled substance at d/c from ED?: No When asked, does pt state using other controlled substances?: No Referrals: None,Stated [Primary Care Provider] - 1-2 days Time of Disposition: 17:35
[2023-07-16 17:29] LABS: Appearance,Urine Cloudy (Clear); Bacteria,Urine Occasional /hpf; Bilirubin,Urine Negative (Negative); Blood,Urine Negative (Negative); Color,Urine Yellow; Glucose,Urine (UA) Negative (Negative); Ketones,Urine Negative (Negative); Leukocyte Esterase,Urine Large (Negative); Mucus,Urine Occasional /hpf; Nitrite,Urine Negative (Negative); PH, Urine 5.5 (5.0-8.0); Protein,Urine Negative (Negative); RBC,Urine 53 /hpf (0-5); Specific Gravity,Urine 1.018 (1.001-1.035); Squamous Epithelial Cell,Urine 1 /hpf (0-4); Urobilinogen,Urine <2.0 mg/dL (<2.0); WBC,Urine 94 /hpf (0-5)
[2023-07-16 18:33] VITALS: BP 136/78; PULSE 68; RESP 18; TEMP 98.8
== END 2023-07-16 18:56 | disposition home or self-care (01) ==
LOC: EC 15:46
DX: N30.00 Acute cystitis without hematuria (principal); A59.9 Trichomoniasis, unspecified; J45.909 Unspecified asthma, uncomplicated; F12.90 Cannabis use, unspecified, uncomplicated; Z86.59 Personal history of other mental and behavioral disorders; Z79.82 Long term (current) use of aspirin
CPT/HCPCS: 81001; 87086; 99283

== ENCOUNTER 2023-07-27 11:10 | Emergency (ER) | payer MEDICARE, OTHER ==
[2023-07-27 11:46] VITALS: BP 119/77
--- NOTE | 2023-07-27 12:01 | ED ---
General Adult HPI - General Chief complaint: ENT Stated complaint: fever, coughing, throat pain Time Seen by Provider: 07/27/23 11:43 Source: patient, RN notes reviewed Mode of arrival: ambulatory Limitations: no limitations - History of Present Illness Initial comments: 48-year-old female presents to the emergency department with chief complaint of sore throat, cough, congestion 1 week. She states that her son has similar symptoms. She does report fever yesterday. She is not taking any bydz-ott-eldqhfu cough syrups. She denies any chest pain, shortness of breath. She denies any difficulty swallowing. Denies any significant past medical history. - Related Data Home Medications Medication Instructions Recorded Confirmed Brimonidine Tartrate [Alphagan P 1 drop BOTH EYES TID 12/21/20 04/03/23 0.2% Ophth Soln] Dorzolamide/Timolol/Pf 1 drop BOTH EYES BID 12/21/20 04/03/23 [Dorzolamide 2%-Timolol 0.5%] Latanoprost Ophth [Xalatan 0.005%] 1 drop BOTH EYES HS 12/21/20 04/03/23 Pilocarpine 1% Ophth Soln [Isopto 1 drop BOTH EYES BID 12/21/20 04/03/23 Carpine 1%] Aspirin EC [Ecotrin Low Dose] 81 mg PO HS 09/10/21 04/03/23 Previous Rx's Medication Instructions Recorded Cephalexin [Keflex] 500 mg PO Q12HR 14 Days #28 cap 04/03/23 Ondansetron Odt [Zofran Odt] 4 mg PO Q8HR PRN #20 tab 04/03/23 Nitrofurantoin Monohyd/M-Cryst 100 mg PO AC-BID 10 Days #20 cap 07/16/23 [Nitrofurantoin [place]-Mcr 100 mg] methylPREDNISolone Dose Pack 4 mg PO DIRECTED #1 packet 07/27/23 [Medrol Dose Pack] Allergies Allergy/AdvReac Type Severity Reaction Status Date / Time No Known Allergies Allergy Verified 07/27/23 11:33 Review of Systems ROS Statement: Those systems with pertinent positive or pertinent negative responses have been documented in the HPI. ROS Other: All systems not noted in ROS Statement are negative. 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 PT REQUESTS THAT SHE RECEIVES NO BLOOD. History of Any Multi-Drug Resistant Organisms: ESBL Date of last positivie culture/infection: 08/13/16 MDRO Source:: urine e.coli ESBL Past Surgical History: Section, Tubal Ligation Additional Past Surgical History / Comment(s): sinus and multiple eye surgery Past Anesthesia/Blood Transfusion Reactions: Postoperative Nausea & Vomiting (PONV) Past Psychological History: Anxiety, Depression Smoking Status: Never smoker Past Alcohol Use History: None Reported Past Drug Use History: None Reported, Marijuana - Past Family History Mother Family Medical History: No Reported History Father Family Medical History: Diabetes Mellitus Additional Family Medical History / Comment(s): Some kind of heart issue. General Exam Limitations: no limitations General appearance: alert, in no apparent distress Head exam: Present: atraumatic, normocephalic, normal inspection Eye exam: Present: normal appearance, PERRL, EOMI. Absent: scleral icterus, conjunctival injection, periorbital swelling ENT exam: Present: normal exam, mucous membranes moist Neck exam: Present: normal inspection. Absent: tenderness, meningismus, lymphadenopathy Respiratory exam: Present: normal lung sounds bilaterally. Absent: respiratory distress, wheezes, rales, rhonchi, stridor Cardiovascular Exam: Present: regular rate, normal rhythm, normal heart sounds. Absent: systolic murmur, diastolic murmur, rubs, gallop, clicks GI/Abdominal exam: Present: soft, normal bowel sounds. Absent: distended, tenderness, guarding, rebound, rigid Extremities exam: Present: normal inspection, full ROM, normal capillary refill. Absent: tenderness, pedal edema, joint swelling, calf tenderness Back exam: Present: normal inspection Neurological exam: Present: alert, oriented X3 Psychiatric exam: Present: normal affect, normal mood Skin exam: Present: warm, dry, intact, normal color. Absent: rash Course Vital Signs 07/27/23 07/27/23 11:30 13:30 Temperature 98.5 F 98.2 F Pulse Rate 71 63 Respiratory 17 18 Rate Blood Pressure 119/77 119/77 O2 Sat by Pulse 98 100 Oximetry Medical Decision Making - Medical Decision Making Was pt. sent in by a medical professional or institution (NATASHA Rob, PEDIATRIC PSYCHOLOGIST, urgent care, hospital, or half-way...) When possible be specific @ -No Did you speak to anyone other than the patient for history (EMS, parent, family, police, friend...)? What history was obtained from this source @ -No Did you review nursing and triage notes (agree or disagree)? Why? @ -I reviewed and agree with nursing and triage notes Were old charts reviewed (outside hosp., previous admission, EMS record, old EKG, old radiological studies, urgent care reports/EKG's, half-way records)? Report findings @ -No old charts were reviewed Differential Diagnosis (chest pain, altered mental status, abdominal pain women, abdominal pain men, vaginal bleeding, weakness, fever, dyspnea, syncope, headache, dizziness, GI bleed, back pain, seizure, CVA, palpatations, mental health, musculoskeletal)? @ -Upper respiratory infection, pneumonia, Covid, influenza, RSV, strep pharyngitis, this list is not all inclusive EKG interpreted by me (3pts min.). @ -none X-rays interpreted by me (1pt min.). @ -Chest x-ray shows no acute process CT interpreted by me (1pt min.). @ -None done U/S interpreted by me (1pt. min.). @ -None done What testing was considered but not performed or refused? (CT, X-rays, U/S, labs)? Why? @ -None What meds were considered but not given or refused? Why? @ -None Did you discuss the management of the patient with other professionals (professionals i.e. NATASHA Rob, PEDIATRIC PSYCHOLOGIST, lab, RT, psych nurse, social work job titles, brick setter operator, teacher, worldwide chief creative officer, case loader operator)? Give summary @ -No Was smoking cessation discussed for >3mins.? @ -No Was critical care preformed (if so, how long)? @ -No Were there social determinants of health that impacted care today? How? (Homelessness, low income, unemployed, alcoholism, drug addiction, transportation, low edu. Level, literacy, decrease access to med. care, senior living, rehab)? @ -No Was there de-escalation of care discussed even if they declined (Discuss DNR or withdrawal of care, Hospice)? DNR status @ -No What co-morbidities impacted this encounter? (DM, HTN, Smoking, COPD, CAD, Cancer, CVA, ARF, Chemo, Hep., AIDS, mental health diagnosis, sleep apnea, morbid obesity)? @ -None Was patient admitted / discharged? Hospital course, mention meds given and route, prescriptions, significant lab abnormalities, going to OR and other pertinent info. @ -Discharged. Patient presented to the emergency department chief complaint of sore throat and cough with associated fever. She states that her son has similar symptoms. Covid, influenza, RSV, strep swabs negative. Chest x-ray shows no acute process. Patient will be started on Medrol Dosepak. Antibiotics not indicated at this time. Patient agreeable and understands plan. Patient stable at time of discharge. Case discussed with Dr. Centeno. Undiagnosed new problem with uncertain prognosis? @ -No Drug Therapy requiring intensive monitoring for toxicity (Heparin, Nitro, Insulin, Cardizem)? @ -No Were any procedures done? @ -No Diagnosis/symptom? @ -Viral URI Acute, or Chronic, or Acute on Chronic? @ -acute Uncomplicated (without systemic symptoms) or Complicated (systemic symptoms)? @ -Uncomplicated Side effects of treatment? @ -No Exacerbation, Progression, or Severe Exacerbation? @ -No Poses a threat to life or bodily function? How? (Chest pain, [place], [place], pneumonia, PE, COPD, DKA, ARF, appy, cholecystitis, CVA, Diverticulitis, Homicidal, Suicidal, threat to staff... and all critical care pts) @ -No - Lab Data Lab Results 07/27/23 07/27/23 Range/Units 12:09 12:09 Influenza Type A (PCR) Not Detected (Not Detectd) Influenza Type B (PCR) Not Detected (Not Detectd) RSV (PCR) Not Detected (Not Detectd) SARS-CoV-2 (PCR) Not Detected (Not Detectd) Group A Strep (PCR) NOT DETECTED (Not Detectd) Disposition Clinical Impression: Upper respiratory infection Disposition: HOME SELF-CARE Condition: Stable Instructions (If sedation given, give patient instructions): Upper Respiratory Infection (ED) Additional Instructions: Please follow up with your primary care provider. Return to the emergency department for new or worsening symptoms. Prescriptions: methylPREDNISolone Dose Pack [Medrol Dose Pack] 4 mg PO DIRECTED #1 packet Is patient prescribed a controlled substance at d/c from ED?: No Referrals: None,Stated [Primary Care Provider] - 1-2 days
--- NOTE | 2023-07-27 12:24 | XR ---
EXAMINATION TYPE: XR chest 2V DATE OF EXAM: 07/27/2023 COMPARISON: 09/11/2021 HISTORY: 48-year-old female with cough and congestion TECHNIQUE: PA and lateral views FINDINGS: Heart normal size. Aorta and pulmonary vasculature within normal limits. No consolidation or pleural effusion. IMPRESSION: No acute cardiopulmonary process.
[2023-07-27 13:46] VITALS: PULSE 63; RESP 18; TEMP 98.2
== END 2023-07-27 13:33 | disposition home or self-care (01) ==
LOC: EC 11:10
DX: J06.9 Acute upper respiratory infection, unspecified (principal); J45.909 Unspecified asthma, uncomplicated; Z86.59 Personal history of other mental and behavioral disorders; Z79.82 Long term (current) use of aspirin; Z20.822 Contact with and (suspected) exposure to COVID-19
CPT/HCPCS: 71046; 87636; 87651; 99283

== ENCOUNTER 2023-08-11 06:55 | Emergency (ER) | payer MEDICARE, OTHER ==
[2023-08-11 07:05] LABS: Glucose,Whole Blood 117 mg/dL (70-110)
[2023-08-11 07:13] VITALS: BP 113/80; TEMP 98.9
--- NOTE | 2023-08-11 10:00 | ED ---
General Adult HPI - General Chief complaint: Recheck/Abnormal Lab/Rx Stated complaint: Blood Sugar High, Chest Pain Time Seen by Provider: 08/11/23 08:42 Source: patient, RN notes reviewed Mode of arrival: ambulatory Limitations: no limitations - History of Present Illness Initial comments: 48-year-old female with a past medical history significant for DVTs presents to the emergency department with a chief complaint of congestion. Patient reports headache, congestion, sore throat for approximately 1 month. She reports a nonproductive cough. She reports that her son recently had viral illnesses home. She denies any shortness of breath chest pain, difficulty in breathing. She reports a fever of approximately 102F last night. She is also complaining of bilateral lower leg pain. She localizes she is concerned for a likely cause in her legs. She is no longer on Eliquis and has not been taking anticoagulation since 2020. Denies any injury or trauma. Has not been taking any rqty-yeh-podahze remedies for his symptoms. - Related Data Home Medications Medication Instructions Recorded Confirmed Brimonidine Tartrate [Alphagan P 1 drop BOTH EYES TID 12/21/20 04/03/23 0.2% Ophth Soln] Dorzolamide/Timolol/Pf 1 drop BOTH EYES BID 12/21/20 04/03/23 [Dorzolamide 2%-Timolol 0.5%] Latanoprost Ophth [Xalatan 0.005%] 1 drop BOTH EYES HS 12/21/20 04/03/23 [place] 1% Ophth Soln [Isopto 1 drop BOTH EYES BID 12/21/20 04/03/23 Carpine 1%] Aspirin EC [Ecotrin Low Dose] 81 mg PO HS 09/10/21 04/03/23 Previous Rx's Medication Instructions Recorded Cephalexin [Keflex] 500 mg PO Q12HR 14 Days #28 cap 04/03/23 Ondansetron Odt [Zofran Odt] 4 mg PO Q8HR PRN #20 tab 04/03/23 Nitrofurantoin Monohyd/M-Cryst 100 mg PO AC-BID 10 Days #20 cap 07/16/23 [Nitrofurantoin [place]-Mcr 100 mg] methylPREDNISolone Dose Pack 4 mg PO DIRECTED #1 packet 07/27/23 [Medrol Dose Pack] Allergies Allergy/AdvReac Type Severity Reaction Status Date / Time No Known Allergies Allergy Verified 08/11/23 07:05 Review of Systems ROS Statement: Those systems with pertinent positive or pertinent negative responses have been documented in the HPI. ROS Other: All systems not noted in ROS Statement are negative. Past Medical History Past Medical History: Asthma, Deep Vein Thrombosis (DVT), Eye Disorder, GERD/Ref lux, Pulmonary Embolus (PE) Additional Past Medical History / Comment(s): Pt has bilateral glaucoma with L eye blindness and R eye legally blind, chronic upper back pain, spinal meningitis as child, DVT R leg, bilateral PEs, recurrent UTIs with recent UTI. PT REQUESTS THAT SHE RECEIVES NO BLOOD. History of Any Multi-Drug Resistant Organisms: ESBL Date of last positivie culture/infection: 08/13/16 MDRO Source:: urine e.coli ESBL Past Surgical History: Section, Tubal Ligation Additional Past Surgical History / Comment(s): sinus and multiple eye surgery Past Anesthesia/Blood Transfusion Reactions: Postoperative Nausea & Vomiting (PONV) Past Psychological History: Anxiety, Depression Smoking Status: Never smoker Past Alcohol Use History: None Reported Past Drug Use History: None Reported, Marijuana - Past Family History Mother Family Medical History: No Reported History Father Family Medical History: Diabetes Mellitus Additional Family Medical History / Comment(s): Some kind of heart issue. General Exam - General Exam Comments Initial Comments: General: Alert, in no acute distress Head: atraumatic normocephalic. Eyes PERRL, EOMI intact, mucous membranes moist Respiratory: Lungs clear to auscultation bilaterally Cardiovascular: Heart rate regular rate and rhythm Abdominal: Soft without guarding or rebound Extremities: Normal inspection with full range of motion and normal capillary refill, bilateral positive Homans sign. 2+ DP/Pt pulses bilaterally Neuroogic: alert and oriented 3, CN II-XII intact, able to ambulate with steady gait Skin: warm dry and intact with normal color Limitations: no limitations Course Vital Signs 08/11/23 08/11/23 08/11/23 07:00 10:18 12:43 Temperature 98.9 F Pulse Rate 116 H 102 H Respiratory 20 18 18 Rate Blood Pressure 113/80 O2 Sat by Pulse 98 96 Oximetry - Reevaluation(s) Reevaluation #1: 08/11/23 12:07 Pt re-evaluated and updated on Results. Agreeable with the plan for discharge. EKG Findings - EKG Comments: EKG Findings:: I interpreted the following: EKG performed at 07:07 rate 96 bpm normal sinus rhythm with short NH interval. NH interval is 100, QRS duration 94, QT/QTc 337/390 Medical Decision Making - Medical Decision Making Was pt. sent in by a medical professional or institution (NATASHA Rob, DATA ANALYTICS ARCHITECT, urgent care, hospital, or penitentiary...) When possible be specific @ -[No] Did you speak to anyone other than the patient for history (EMS, parent, family, police, friend...)? What history was obtained from this source @ -[No] Did you review nursing and triage notes (agree or disagree)? Why? @ -[I reviewed and agree with nursing and triage notes] Were old charts reviewed (outside hosp., previous admission, EMS record, old EKG, old radiological studies, urgent care reports/EKG's, penitentiary records)? Report findings @ -[No old charts were reviewed] Differential Diagnosis (chest pain, altered mental status, abdominal pain women, abdominal pain men, vaginal bleeding, weakness, fever, dyspnea, syncope, headache, dizziness, GI bleed, back pain, seizure, CVA, palpatations, mental health, musculoskeletal)? @ -[not applicable] EKG interpreted by me (3pts min.). @ -[As above] X-rays interpreted by me (1pt min.). @ -Chest x-ray does not reveal any acute intra-pleural process. CT interpreted by me (1pt min.). @ -[None done] U/S interpreted by me (1pt. min.). @ -Probable extremity ultrasound is negative for evidence of DVT What testing was considered but not performed or refused? (CT, X-rays, U/S, labs)? Why? @ -[None] What meds were considered but not given or refused? Why? @ -[None] Did you discuss the management of the patient with other professionals (professionals i.e. NATASHA Rob, DATA ANALYTICS ARCHITECT, lab, RT, psych nurse, social worker masters, photoengraving supervisor, teacher, chief fundraising officer, disease case manager)? Give summary @ -[No] Was smoking cessation discussed for >3mins.? @ -[No] Was critical care preformed (if so, how long)? @ -[No] Were there social determinants of health that impacted care today? How? (Homelessness, low income, unemployed, alcoholism, drug addiction, transportation, low edu. Level, literacy, decrease access to med. care, [facility], rehab)? @ -[No] Was there de-escalation of care discussed even if they declined (Discuss DNR or withdrawal of care, Hospice)? DNR status @ -[No] What co-morbidities impacted this encounter? (DM, HTN, Smoking, COPD, CAD, Cancer, CVA, ARF, Chemo, Hep., AIDS, mental health diagnosis, sleep apnea, morbid obesity)? @ -[None] Was patient admitted / discharged? Hospital course, mention meds given and route, prescriptions, significant lab abnormalities, going to OR and other pertinent info. @ Discharged. This is a 48-year-old female who presents the emergency department with a chief complaint of generalized body aches. Patient had a thorough history and physical exam performed. Vital signs are stable. Patient is afebrile. Heart rate regular rate and rhythm, lungs to auscultation bilaterally abdomen is soft and nontender. There is bilateral positive Homans sign. Patient laboratory studies which were unremarkable. Chest x-ray and bilateral lower extremity ultrasound negative for evidence of DVT. I discussed results in detail with the patient verbalized understanding and all questions were addressed. Patient agreeable with the plan for discharge home with recommended close follow-up with PCP in 1-2 days. Return precautions were discussed at length. Case is discussed with MILI Nuñez who agrees Undiagnosed new problem with uncertain prognosis? @ -[No] Drug Therapy requiring intensive monitoring for toxicity (Heparin, Nitro, Insulin, Cardizem)? @ -[No] Were any procedures done? @ -[No] Diagnosis/symptom? @ -Generalized Body Aches - Bilateral leg pain - Nasal Congestion Acute, or Chronic, or Acute on Chronic? @ -Acute Uncomplicated (without systemic symptoms) or Complicated (systemic symptoms)? @ -Uncomplicated Side effects of treatment? @ -[No] Exacerbation, Progression, or Severe Exacerbation? @ -[No] Poses a threat to life or bodily function? How? (Chest pain, [place], [place], pneumonia, PE, COPD, DKA, ARF, appy, cholecystitis, CVA, Diverticulitis, Homicidal, Suicidal, threat to staff... and all critical care pts) @ -Low likelihood - Lab Data Result diagrams: 08/11/23 10:11 08/11/23 10:11 Lab Results 08/11/23 08/11/23 08/11/23 Range/Units 07:02 10:11 10:11 WBC 11.5 H (3.8-10.6) k/uL RBC 4.60 (3.80-5.40) m/uL Hgb 14.1 (11.4-16.0) gm/dL Hct 42.0 (34.0-46.0) % MCV 91.2 (80.0-100.0) fL MCH 30.7 (25.0-35.0) pg MCHC 33.6 (31.0-37.0) g/dL RDW 13.0 (11.5-15.5) % Plt Count 159 (150-450) k/uL MPV 10.0 Neutrophils % 92 % Lymphocytes % 4 % Monocytes % 2 % Eosinophils % 1 % Basophils % 0 % Neutrophils # 10.6 H (1.3-7.7) k/uL Lymphocytes # 0.5 L (1.0-4.8) k/uL Monocytes # 0.3 (0-1.0) k/uL Eosinophils # 0.1 (0-0.7) k/uL Basophils # 0.0 (0-0.2) k/uL Sodium 135 L (137-145) mmol/L Potassium 3.6 (3.5-5.1) mmol/L Chloride 102 (98-107) mmol/L Carbon Dioxide 21 L (22-30) mmol/L Anion Gap 12 mmol/L BUN 9 (7-17) mg/dL Creatinine 0.78 (0.52-1.04) mg/dL Est GFR (CKD-EPI)AfAm >90 (>60 ml/min/1.73 sqM) Est GFR (CKD-EPI)NonAf >90 (>60 ml/min/1.73 sqM) Glucose 108 H (74-99) mg/dL POC Glucose (mg/dL) 117 H (70-110) mg/dL POC Glu Wheel Buffer ID Rishabh Segura Calcium 8.8 (8.4-10.2) mg/dL Total Bilirubin 1.1 (0.2-1.3) mg/dL AST 19 (14-36) U/L ALT 14 (4-34) U/L Alkaline Phosphatase 77 (38-126) U/L Total Protein 6.7 (6.3-8.2) g/dL Albumin 4.0 (3.5-5.0) g/dL Influenza Type A (PCR) (Not Detectd) Influenza Type B (PCR) (Not Detectd) RSV (PCR) (Not Detectd) SARS-CoV-2 (PCR) (Not Detectd) 08/11/23 Range/Units 10:11 WBC (3.8-10.6) k/uL RBC (3.80-5.40) m/uL Hgb (11.4-16.0) gm/dL Hct (34.0-46.0) % MCV (80.0-100.0) fL MCH (25.0-35.0) pg MCHC (31.0-37.0) g/dL RDW (11.5-15.5) % Plt Count (150-450) k/uL MPV Neutrophils % % Lymphocytes % % Monocytes % % Eosinophils % % Basophils % % Neutrophils # (1.3-7.7) k/uL Lymphocytes # (1.0-4.8) k/uL Monocytes # (0-1.0) k/uL Eosinophils # (0-0.7) k/uL Basophils # (0-0.2) k/uL Sodium (137-145) mmol/L Potassium (3.5-5.1) mmol/L Chloride (98-107) mmol/L Carbon Dioxide (22-30) mmol/L Anion Gap mmol/L BUN (7-17) mg/dL Creatinine (0.52-1.04) mg/dL Est GFR (CKD-EPI)AfAm (>60 ml/min/1.73 sqM) Est GFR (CKD-EPI)NonAf (>60 ml/min/1.73 sqM) Glucose (74-99) mg/dL POC Glucose (mg/dL) (70-110) mg/dL POC Glu Wheel Buffer ID Calcium (8.4-10.2) mg/dL Total Bilirubin (0.2-1.3) mg/dL AST (14-36) U/L ALT (4-34) U/L Alkaline Phosphatase (38-126) U/L Total Protein (6.3-8.2) g/dL Albumin (3.5-5.0) g/dL Influenza Type A (PCR) Not Detected (Not Detectd) Influenza Type B (PCR) Not Detected (Not Detectd) RSV (PCR) Not Detected (Not Detectd) SARS-CoV-2 (PCR) Not Detected (Not Detectd) Disposition Clinical Impression: Cough, Congestion of nasal sinus, Leg pain Disposition: HOME SELF-CARE Condition: Stable Additional Instructions: Please monitor symptoms closely Return to the nearest emergency department if worsening symptoms Is patient prescribed a controlled substance at d/c from ED?: No Referrals: None,Stated [Primary Care Provider] - 1-2 days Forms: Area PCPs Time of Disposition: 12:39
--- NOTE | 2023-08-11 10:21 | US ---
EXAMINATION TYPE: US venous doppler duplex LE DATE OF EXAM: 08/11/2023 9:10 AM COMPARISON: US 2021 CLINICAL INDICATION: Female, 48 years old with history of leg pain; Leg pain x a couple days. Hx of D VT. Patient does not take blood thinners. SIDE PERFORMED: Bilateral TECHNIQUE: The lower extremity deep venous system is examined utilizing real time linear array sonog jeremiah with graded compression, doppler sonography and color-flow sonography. VESSELS IMAGED: Common Femoral Vein Deep Femoral Vein Greater Saphenous Vein * Femoral Vein Popliteal Vein Small Saphenous Vein * Proximal Calf Veins (* superficial vessels) Right Leg: No evidence of DVT. Left Leg: No evidence of DVT. IMPRESSION: 1. Bilateral lower extremity ultrasound negative for deep venous thrombosis.
[2023-08-11 10:32] VITALS: RESP 18
[2023-08-11 10:43] LABS: Basophils % (A) 0 %; Eosinophils # (A) 0.1 k/uL (0-0.7); Eosinophils % (A) 1 %; HGB 14.1 gm/dL (11.4-16.0); Lymphocytes # (A) 0.5 k/uL (1.0-4.8); Lymphocytes % (A) 4 %; MCH 30.7 pg (25.0-35.0); MCHC 33.6 g/dL (31.0-37.0); MCV 91.2 fL (80.0-100.0); Monocytes # (A) 0.3 k/uL (0-1.0); Monocytes % (A) 2 %; Neutrophils # (A) 10.6 k/uL (1.3-7.7); Neutrophils % (A) 92 %; Platelet Count 159 k/uL (150-450); WBC 11.5 k/uL (3.8-10.6)
[2023-08-11 10:55] LABS: ALT 14 U/L (4-34); AST 19 U/L (14-36); African American GFR (CKD) >90 (>60 ml/min/1.73 sqM); Alkaline Phosphatase 77 U/L (38-126); Anion Gap 12 mmol/L; Blood Urea Nitrogen 9 mg/dL (7-17); Calcium 8.8 mg/dL (8.4-10.2); Carbon Dioxide 21 mmol/L (22-30); Chloride 102 mmol/L (98-107); Glucose 108 mg/dL (74-99); Non-African American GFR(CKD) >90 (>60 ml/min/1.73 sqM); Potassium 3.6 mmol/L (3.5-5.1); Sodium 135 mmol/L (137-145); Total Bilirubin 1.1 mg/dL (0.2-1.3); Total Protein 6.7 g/dL (6.3-8.2)
--- NOTE | 2023-08-11 10:56 | XR ---
EXAMINATION TYPE: XR chest 2V DATE OF EXAM: 08/11/2023 COMPARISON: 07/27/2023 INDICATION: Cough short of breath fever TECHNIQUE: Single frontal view of the chest is obtained. FINDINGS: The heart size is normal. The pulmonary vasculature is normal. The lungs are clear. IMPRESSION: 1. No acute pulmonary process.
[2023-08-11 12:49] VITALS: PULSE 102
== END 2023-08-11 12:50 | disposition home or self-care (01) ==
LOC: EC 06:55
DX: M79.605 Pain in left leg (principal); M79.604 Pain in right leg; R09.81 Nasal congestion; R05.9 Cough, unspecified; J45.909 Unspecified asthma, uncomplicated; Z79.82 Long term (current) use of aspirin; Z86.59 Personal history of other mental and behavioral disorders; Z20.822 Contact with and (suspected) exposure to COVID-19
CPT/HCPCS: 36415; 71046; 80053; 85025; 87636; 93005; 93970; 99284

== ENCOUNTER 2023-09-15 06:55 | Emergency (ER) | payer MEDICARE, OTHER ==
--- NOTE | 2023-09-15 07:14 | ED ---
General Adult HPI - General Stated complaint: Abdominal Pain, Nausea, Back Pain Time Seen by Provider: 09/15/23 07:12 Source: patient, RN notes reviewed Mode of arrival: ambulatory Limitations: no limitations - History of Present Illness Initial comments: 48-year-old female presents emergency Department with chief complaint of abdominal pain, flank pain. Patient has a history recheck infections. Patient states she was seen at urgent care yesterday was diagnosed with UTI. Patient's face and antibiotics and antiemetics. Patient states has not helped. Patient states that she's been vomiting most of the night, morning. Reports of fever no chest pain or shortness of breath. - Related Data Home Medications Medication Instructions Recorded Confirmed Brimonidine Tartrate [Alphagan P 1 drop BOTH EYES TID 12/21/20 04/03/23 0.2% Ophth Soln] Dorzolamide/Timolol/Pf 1 drop BOTH EYES BID 12/21/20 04/03/23 [Dorzolamide 2%-Timolol 0.5%] Latanoprost Ophth [Xalatan 0.005%] 1 drop BOTH EYES HS 12/21/20 04/03/23 Pilocarpine 1% Ophth Soln [Isopto 1 drop BOTH EYES BID 12/21/20 04/03/23 Carpine 1%] Aspirin EC [Ecotrin Low Dose] 81 mg PO HS 09/10/21 04/03/23 Previous Rx's Medication Instructions Recorded Cephalexin [Keflex] 500 mg PO Q12HR 14 Days #28 cap 04/03/23 Ondansetron Odt [Zofran Odt] 4 mg PO Q8HR PRN #20 tab 04/03/23 Nitrofurantoin Monohyd/M-Cryst 100 mg PO AC-BID 10 Days #20 cap 07/16/23 [Nitrofurantoin [place]-Mcr 100 mg] methylPREDNISolone Dose Pack 4 mg PO DIRECTED #1 packet 07/27/23 [Medrol Dose Pack] Ketorolac [Toradol] 10 mg PO Q8HR #15 tab 09/15/23 Nitrofurantoin Monohyd/M-Cryst 100 mg PO Q12HR #14 cap 09/15/23 [Macrobid] Ondansetron Odt [Zofran Odt] 4 mg PO Q8HR PRN #10 tab 09/15/23 Allergies Allergy/AdvReac Type Severity Reaction Status Date / Time No Known Allergies Allergy Verified 09/15/23 07:17 Review of Systems ROS Statement: Those systems with pertinent positive or pertinent negative responses have been documented in the HPI. ROS Other: All systems not noted in ROS Statement are negative. 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 PT REQUESTS THAT SHE RECEIVES NO BLOOD. History of Any Multi-Drug Resistant Organisms: ESBL Date of last positivie culture/infection: 08/13/16 MDRO Source:: urine e.coli ESBL Past Surgical History: Section, Tubal Ligation Additional Past Surgical History / Comment(s): sinus and multiple eye surgery Past Anesthesia/Blood Transfusion Reactions: Postoperative Nausea & Vomiting (PONV) Past Psychological History: Anxiety, Depression Smoking Status: Never smoker Past Alcohol Use History: None Reported Past Drug Use History: None Reported, Marijuana - Past Family History Mother Family Medical History: No Reported History Father Family Medical History: Diabetes Mellitus Additional Family Medical History / Comment(s): Some kind of heart issue. General Exam - General Exam Comments Initial Comments: Visual Physical Exam Vital signs reviewed General: Well-appearing, nontoxic, no acute distress. Head: Normocephalic, atraumatic Eyes: PERRLA, EOMI ENT: Airway patent Chest: Nonlabored breathing Skin: No visual rash, normal skin tone Neuro: Alert and oriented 3 Musculoskeletal: No gross abnormalities Limitations: no limitations General appearance: alert, in no apparent distress Head exam: Present: atraumatic, normocephalic, normal inspection Neck exam: Present: normal inspection. Absent: tenderness, meningismus, lymphadenopathy Respiratory exam: Present: normal lung sounds bilaterally. Absent: respiratory distress, wheezes, rales, rhonchi, stridor Cardiovascular Exam: Present: regular rate, normal rhythm, normal heart sounds. Absent: systolic murmur, diastolic murmur, rubs, gallop, clicks GI/Abdominal exam: Present: soft, tenderness, normal bowel sounds. Absent: distended, guarding, rebound, rigid Back exam: Present: CVA tenderness (L). Absent: CVA tenderness (R) Neurological exam: Present: alert, oriented X3, CN II-XII intact Course Vital Signs 09/15/23 07:15 Temperature 98.1 F Pulse Rate 63 Respiratory 20 Rate Blood Pressure 137/73 O2 Sat by Pulse 100 Oximetry Medical Decision Making - Medical Decision Making I completed the quick note portion of this chart signed Perry Norman PA-C Was pt. sent in by a medical professional or institution (NATASHA Rob, MEDICAL AIDE, urgent care, hospital, or [facility]...) When possible be specific @ -No Did you speak to anyone other than the patient for history (EMS, parent, family, police, friend...)? What history was obtained from this source @ -No Did you review nursing and triage notes (agree or disagree)? Why? @ -I reviewed and agree with nursing and triage notes Were old charts reviewed (outside hosp., previous admission, EMS record, old EKG, old radiological studies, urgent care reports/EKG's, [facility] records)? Report findings @ -No old charts were reviewed Differential Diagnosis (chest pain, altered mental status, abdominal pain women, abdominal pain men, vaginal bleeding, weakness, fever, dyspnea, syncope, headache, dizziness, GI bleed, back pain, seizure, CVA, palpatations, mental health, musculoskeletal)? @ -Differential Abdominal Pain Women: Appendicitis, Cholecystitis, diverticulosis, ischemic bowel, pancreatitis, hepatitis, UTI, gastroenteritis, AAA, incarcerated hernia, bowel obstruction, constipation, inflammatory bowel, hepatitis, peptic ulcer disease, splenic infarction, perforated viscus, vulvitis, ovarian torsion, PID, kidney stone, placenta abruption, this is not meant to be an all-inclusive list EKG interpreted by me (3pts min.). @ -None X-rays interpreted by me (1pt min.). @ -None done CT interpreted by me (1pt min.). @ -None done U/S interpreted by me (1pt. min.). @ -None done What testing was considered but not performed or refused? (CT, X-rays, U/S, labs)? Why? @ -None What meds were considered but not given or refused? Why? @ -None Did you discuss the management of the patient with other professionals (professionals i.e. Dr., PA, MEDICAL AIDE, lab, RT, psych nurse, manager social media, cabin cleaner, teacher, business enterprise officer, mattress spring encaser)? Give summary @ -No Was smoking cessation discussed for >3mins.? @ -No Was critical care preformed (if so, how long)? @ -No Were there social determinants of health that impacted care today? How? (Homelessness, low income, unemployed, alcoholism, drug addiction, transportation, low edu. Level, literacy, decrease access to med. care, intermediate, rehab)? @ -No Was there de-escalation of care discussed even if they declined (Discuss DNR or withdrawal of care, Hospice)? DNR status @ -No What co-morbidities impacted this encounter? (DM, HTN, Smoking, COPD, CAD, Cancer, CVA, ARF, Chemo, Hep., AIDS, mental health diagnosis, sleep apnea, morbid obesity)? @ -None Was patient admitted / discharged? Hospital course, mention meds given and route, prescriptions, significant lab abnormalities, going to OR and other pertinent info. @ -Discharge patient has prior diagnosis of UTI a urinalysis is abnormal secondary to azo use. Patient feels improved after IV fluids, antiemetics and analgesics. Return parameters were discussed. Patient feels she may have lost her prescription for her antibiotics this will be refilled. Undiagnosed new problem with uncertain prognosis? @ -No Drug Therapy requiring intensive monitoring for toxicity (Heparin, Nitro, Insulin, Cardizem)? @ -No Were any procedures done? @ -No Diagnosis/symptom? @ -UTI, nausea vomiting Acute, or Chronic, or Acute on Chronic? @ -[Acute Uncomplicated (without systemic symptoms) or Complicated (systemic symptoms)? @ -[Uncomplicated Side effects of treatment? @ -No Exacerbation, Progression, or Severe Exacerbation? @ -No Poses a threat to life or bodily function? How? (Chest pain, [place], [place], pneumonia, PE, COPD, DKA, ARF, appy, cholecystitis, CVA, Diverticulitis, Homicidal, S uicidal, threat to staff... and all critical care pts) @ -No - Lab Data Result diagrams: 09/15/23 07:46 09/15/23 07:46 Lab Results 09/15/23 09/15/23 09/15/23 Range/Units 07:46 07:46 07:46 WBC 9.8 (3.8-10.6) k/uL RBC 4.47 (3.80-5.40) m/uL Hgb 13.9 (11.4-16.0) gm/dL Hct 41.8 (34.0-46.0) % MCV 93.7 (80.0-100.0) fL MCH 31.2 (25.0-35.0) pg MCHC 33.3 (31.0-37.0) g/dL RDW 13.9 (11.5-15.5) % Plt Count 155 (150-450) k/uL MPV 9.8 Neutrophils % 82 % Lymphocytes % 13 % Monocytes % 3 % Eosinophils % 1 % Basophils % 1 % Neutrophils # 8.1 H (1.3-7.7) k/uL Lymphocytes # 1.3 (1.0-4.8) k/uL Monocytes # 0.3 (0-1.0) k/uL Eosinophils # 0.1 (0-0.7) k/uL Basophils # 0.1 (0-0.2) k/uL Sodium 138 (137-145) mmol/L Potassium 3.8 (3.5-5.1) mmol/L Chloride 109 H (98-107) mmol/L Carbon Dioxide 17 L (22-30) mmol/L Anion Gap 12 mmol/L BUN 10 (7-17) mg/dL Creatinine 0.90 (0.52-1.04) mg/dL Est GFR (CKD-EPI)AfAm 89 (>60 ml/min/1.73 sqM) Est GFR (CKD-EPI)NonAf 77 (>60 ml/min/1.73 sqM) Glucose 138 H (74-99) mg/dL Plasma Lactic Acid Vamsi (0.7-2.0) mmol/L Calcium 8.9 (8.4-10.2) mg/dL Total Bilirubin 1.0 (0.2-1.3) mg/dL AST 17 (14-36) U/L ALT 11 (4-34) U/L Alkaline Phosphatase 87 (38-126) U/L Total Protein 6.9 (6.3-8.2) g/dL Albumin 4.0 (3.5-5.0) g/dL Lipase 75 (23-300) U/L Urine Color [place] Urine Appearance Clear (Clear) Urine RBC >182 H (0-5) /hpf Urine WBC 30 H (0-5) /hpf Ur Squamous Epith Cells 1 (0-4) /hpf Urine Bacteria Rare H (None) /hpf Urine Mucus Moderate H (None) /hpf 09/15/23 Range/Units 07:46 WBC (3.8-10.6) k/uL RBC (3.80-5.40) m/uL Hgb (11.4-16.0) gm/dL Hct (34.0-46.0) % MCV (80.0-100.0) fL MCH (25.0-35.0) pg MCHC (31.0-37.0) g/dL RDW (11.5-15.5) % Plt Count (150-450) k/uL MPV Neutrophils % % Lymphocytes % % Monocytes % % Eosinophils % % Basophils % % Neutrophils # (1.3-7.7) k/uL Lymphocytes # (1.0-4.8) k/uL Monocytes # (0-1.0) k/uL Eosinophils # (0-0.7) k/uL Basophils # (0-0.2) k/uL Sodium (137-145) mmol/L Potassium (3.5-5.1) mmol/L Chloride (98-107) mmol/L Carbon Dioxide (22-30) mmol/L Anion Gap mmol/L BUN (7-17) mg/dL Creatinine (0.52-1.04) mg/dL Est GFR (CKD-EPI)AfAm (>60 ml/min/1.73 sqM) Est GFR (CKD-EPI)NonAf (>60 ml/min/1.73 sqM) Glucose (74-99) mg/dL Plasma Lactic Acid Vamsi 1.1 (0.7-2.0) mmol/L Calcium (8.4-10.2) mg/dL Total Bilirubin (0.2-1.3) mg/dL AST (14-36) U/L ALT (4-34) U/L Alkaline Phosphatase (38-126) U/L Total Protein (6.3-8.2) g/dL Albumin (3.5-5.0) g/dL Lipase (23-300) U/L Urine Color Urine Appearance (Clear) Urine RBC (0-5) /hpf Urine WBC (0-5) /hpf Ur Squamous Epith Cells (0-4) /hpf Urine Bacteria (None) /hpf Urine Mucus (None) /hpf Disposition Clinical Impression: Urinary tract infection, Abdominal pain, Nausea & vomiting Disposition: HOME SELF-CARE Condition: Stable Instructions (If sedation given, give patient instructions): Acute Nausea and Vomiting (ED) Additional Instructions: Please return to the Emergency Department if symptoms worsen or any other concerns. Prescriptions: Nitrofurantoin Monohyd/M-Cryst [Macrobid] 100 mg PO Q12HR #14 cap Ketorolac [Toradol] 10 mg PO Q8HR #15 tab Ondansetron Odt [Zofran Odt] 4 mg PO Q8HR PRN #10 tab PRN Reason: Nausea Is patient prescribed a controlled substance at d/c from ED?: No Referrals: None,Stated [Primary Care Provider] - 1-2 days Time of Disposition: 09:23
[2023-09-15] MEDS ORDERED: SODIUM CHLORIDE 0.9% 1,000 ML IV ONE (07:18)
[2023-09-15] MEDS ORDERED: SODIUM CHLORIDE 0.9% 500 ML 500 ML IV ONE (07:18)
[2023-09-15] MEDS ORDERED: ONDANSETRON 4 MG/2 ML VIAL IVP STA (07:18)
[2023-09-15] MEDS ORDERED: KETOROLAC 15 MG/ML 1 ML VIAL IVP STA (07:26)
[2023-09-15 07:57] LABS: Basophils # (A) 0.1 k/uL (0-0.2); Basophils % (A) 1 %; Eosinophils # (A) 0.1 k/uL (0-0.7); Eosinophils % (A) 1 %; HCT 41.8 % (34.0-46.0); HGB 13.9 gm/dL (11.4-16.0); Lymphocytes # (A) 1.3 k/uL (1.0-4.8); Lymphocytes % (A) 13 %; MCH 31.2 pg (25.0-35.0); MCHC 33.3 g/dL (31.0-37.0); MCV 93.7 fL (80.0-100.0); Mean Platelet Volume 9.8; Monocytes # (A) 0.3 k/uL (0-1.0); Monocytes % (A) 3 %; Neutrophils # (A) 8.1 k/uL (1.3-7.7); Neutrophils % (A) 82 %; Platelet Count 155 k/uL (150-450); RBC 4.47 m/uL (3.80-5.40); RDW 13.9 % (11.5-15.5); WBC 9.8 k/uL (3.8-10.6)
[2023-09-15 08:14] LABS: ALT 11 U/L (4-34); AST 17 U/L (14-36); African American GFR (CKD) 89 (>60 ml/min/1.73 sqM); Alkaline Phosphatase 87 U/L (38-126); Anion Gap 12 mmol/L; Blood Urea Nitrogen 10 mg/dL (7-17); Calcium 8.9 mg/dL (8.4-10.2); Carbon Dioxide 17 mmol/L (22-30); Chloride 109 mmol/L (98-107); Glucose 138 mg/dL (74-99); Lipase 75 U/L (23-300); Non-African American GFR(CKD) 77 (>60 ml/min/1.73 sqM); Potassium 3.8 mmol/L (3.5-5.1); Sodium 138 mmol/L (137-145); Total Protein 6.9 g/dL (6.3-8.2)
[2023-09-15 09:05] LABS: Appearance,Urine Clear (Clear); Color,Urine Orange
[2023-09-15 09:06] LABS: Bacteria,Urine Rare /hpf; Mucus,Urine Moderate /hpf; RBC,Urine >182 /hpf (0-5); Squamous Epithelial Cell,Urine 1 /hpf (0-4); WBC,Urine 30 /hpf (0-5)
[2023-09-15] MEDS ORDERED: ONDANSETRON 4 MG ODT STARTER PACK 2 TAB BTL PO STA (09:21)
[2023-09-15 09:49] VITALS: BP 112/67; PULSE 61; RESP 18; TEMP 98.2
== END 2023-09-15 09:45 | disposition home or self-care (01) ==
LOC: EC 06:55
DX: N39.0 Urinary tract infection, site not specified (principal); J45.909 Unspecified asthma, uncomplicated; F12.90 Cannabis use, unspecified, uncomplicated; Z79.82 Long term (current) use of aspirin; Z86.59 Personal history of other mental and behavioral disorders
CPT/HCPCS: 36415; 80053; 83605; 83690; 85025; 81001; 87086; 99284; 96374; 96375; 96361; J2405; J1885; S0119; 87077; 87186

== ENCOUNTER 2024-01-19 11:38 | Emergency (ER) | payer MEDICARE, OTHER ==
[2024-01-19 11:43] VITALS: RESP 18; TEMP 97.8
[2024-01-19] MEDS: KETOROLAC 15 MG/ML 1 ML VIAL IM STA (12:07)
--- NOTE | 2024-01-19 12:26 | ED ---
Lower Extremity Injury HPI - General Chief Complaint: Extremity Injury, Lower Stated Complaint: L ankle injury Time Seen by Provider: 01/19/24 11:51 Source: patient, RN notes reviewed Mode of arrival: wheelchair Limitations: no limitations - History of Present Illness Initial Comments: 48-year-old female presents emergency department complaint left ankle pain. Patient states that she stepped off a curb and rolled her ankle. She complains of lateral left ankle pain no other injuries no foot pain no paresthesias. - Related Data Home Medications Medication Instructions Recorded Confirmed Brimonidine Tartrate [Alphagan P 1 drop BOTH EYES TID 12/21/20 04/03/23 0.2% Ophth Soln] Dorzolamide/Timolol/Pf 1 drop BOTH EYES BID 12/21/20 04/03/23 [Dorzolamide 2%-Timolol 0.5%] Latanoprost Ophth [Xalatan 0.005%] 1 drop BOTH EYES HS 12/21/20 04/03/23 Pilocarpine 1% Ophth Soln [Isopto 1 drop BOTH EYES BID 12/21/20 04/03/23 Carpine 1%] Aspirin EC [Ecotrin Low Dose] 81 mg PO HS 09/10/21 04/03/23 Previous Rx's Medication Instructions Recorded Cephalexin [Keflex] 500 mg PO Q12HR 14 Days #28 cap 04/03/23 Ondansetron Odt [Zofran Odt] 4 mg PO Q8HR PRN #20 tab 04/03/23 Nitrofurantoin Monohyd/M-Cryst 100 mg PO AC-BID 10 Days #20 cap 07/16/23 [Nitrofurantoin [place]-Mcr 100 mg] methylPREDNISolone Dose Pack 4 mg PO DIRECTED #1 packet 07/27/23 [Medrol Dose Pack] Ketorolac [Toradol] 10 mg PO Q8HR #15 tab 09/15/23 Nitrofurantoin Monohyd/M-Cryst 100 mg PO Q12HR #14 cap 09/15/23 [Macrobid] Ondansetron Odt [Zofran Odt] 4 mg PO Q8HR PRN #10 tab 09/15/23 Ibuprofen [Motrin] 600 mg PO Q8HR PRN #20 tab 01/19/24 Allergies Allergy/AdvReac Type Severity Reaction Status Date / Time No Known Allergies Allergy Verified 01/19/24 11:41 Review of Systems ROS Statement: Those systems with pertinent positive or pertinent negative responses have been documented in the HPI. ROS Other: All systems not noted in ROS Statement are negative. 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 PT REQUESTS THAT SHE RECEIVES NO BLOOD. History of Any Multi-Drug Resistant Organisms: ESBL Date of last positivie culture/infection: 08/13/16 MDRO Source:: urine e.coli ESBL Past Surgical History: Section, Tubal Ligation Additional Past Surgical History / Comment(s): sinus and multiple eye surgery Past Anesthesia/Blood Transfusion Reactions: Postoperative Nausea & Vomiting (PONV) Past Psychological History: Anxiety, Depression Smoking Status: Never smoker Past Alcohol Use History: Occasional Past Drug Use History: None Reported, Marijuana - Past Family History Mother Family Medical History: No Reported History Father Family Medical History: Diabetes Mellitus Additional Family Medical History / Comment(s): Some kind of heart issue. General Exam Limitations: no limitations General appearance: alert, in no apparent distress Head exam: Present: atraumatic, normocephalic, normal inspection Eye exam: Present: normal appearance, PERRL, EOMI. Absent: scleral icterus, conjunctival injection, periorbital swelling ENT exam: Present: normal exam, normal oropharynx, mucous membranes moist Neck exam: Present: normal inspection, full ROM. Absent: tenderness, meningismus, lymphadenopathy Respiratory exam: Present: normal lung sounds bilaterally. Absent: respiratory distress, wheezes, rales, rhonchi, stridor Cardiovascular Exam: Present: regular rate, normal rhythm, normal heart sounds. Absent: systolic murmur, diastolic murmur, rubs, gallop, clicks Extremities exam: Present: other (Left ankle lateral malleolus tenderness, swelling noted no mid to distal foot tenderness no proximal tib-fib tenderness neurovascular intact) Course Vital Signs 01/19/24 11:40 Temperature 97.8 F Pulse Rate 82 Respiratory 18 Rate Blood Pressure 124/79 O2 Sat by Pulse 99 Oximetry Medical Decision Making - Medical Decision Making Was pt. sent in by a medical professional or institution (NATASHA Rob, PATHOLOGY TEACHER, urgent care, hospital, or [facility]...) When possible be specific @ -No Did you speak to anyone other than the patient for history (EMS, parent, family, police, friend...)? What history was obtained from this source @ -No Did you review nursing and triage notes (agree or disagree)? Why? @ -I reviewed and agree with nursing and triage notes Were old charts reviewed (outside hosp., previous admission, EMS record, old EKG, old radiological studies, urgent care reports/EKG's, [facility] records)? Report findings @ -No old charts were reviewed Differential Diagnosis (chest pain, altered mental status, abdominal pain women, abdominal pain men, vaginal bleeding, weakness, fever, dyspnea, syncope, headache, dizziness, GI bleed, back pain, seizure, CVA, palpatations, mental health, musculoskeletal)? @ -Left ankle sprain left ankle fracture EKG interpreted by me (3pts min.). @ -None X-rays interpreted by me (1pt min.). @ -X-ray left ankle shows no acute fracture soft tissue swelling noted CT interpreted by me (1pt min.). @ -None done U/S interpreted by me (1pt. min.). @ -None done What testing was considered but not performed or refused? (CT, X-rays, U/S, labs)? Why? @ -None What meds were considered but not given or refused? Why? @ -None Did you discuss the management of the patient with other professionals (professionals i.e. NATASHA Rob, PATHOLOGY TEACHER, lab, RT, psych nurse, social media developer, die trimmer, teacher, electoral officer, machine adjuster leader case trim)? Give summary @ -No Was smoking cessation discussed for >3mins.? @ -No Was critical care preformed (if so, how long)? @ -No Were there social determinants of health that impacted care today? How? (Homelessness, low income, unemployed, alcoholism, drug addiction, transportation, low edu. Level, literacy, decrease access to med. care, care home, rehab)? @ -No Was there de-escalation of care discussed even if they declined (Discuss DNR or withdrawal of care, Hospice)? DNR status @ -No What co-morbidities impacted this encounter? (DM, HTN, Smoking, COPD, CAD, Cancer, CVA, ARF, Chemo, Hep., AIDS, mental health diagnosis, sleep apnea, morbid obesity)? @ -None Was patient admitted / discharged? Hospital course, mention meds given and route, prescriptions, significant lab abnormalities, going to OR and other pertinent info. @ -Discharge patient has a left ankle sprain x-rays reveal no acute fracture patient placed in a stirrup Aircast and will follow-up with orthopedics and continue anti-inflammatories rest ice and elevation Undiagnosed new problem with uncertain prognosis? @ -No Drug Therapy requiring intensive monitoring for toxicity (Heparin, Nitro, Insulin, Cardizem)? @ -No Were any procedures done? @ -No Diagnosis/symptom? @ -Left ankle sprain Acute, or Chronic, or Acute on Chronic? @ -Acute Uncomplicated (without systemic symptoms) or Complicated (systemic symptoms)? @ -Uncomplicated Side effects of treatment? @ -No Exacerbation, Progression, or Severe Exacerbation? @ -No Poses a threat to life or bodily function? How? (Chest pain, [place], [place], pneumonia, PE, COPD, DKA, ARF, appy, cholecystitis, CVA, Diverticulitis, Homicidal, Suicidal, threat to staff... and all critical care pts) @ -No Disposition Clinical Impression: Left ankle sprain Disposition: HOME SELF-CARE Condition: Stable Instructions (If sedation given, give patient instructions): Ankle Sprain (ED) Additional Instructions: Please return to the Emergency Department if symptoms worsen or any other concerns. Prescriptions: Ibuprofen [Motrin] 600 mg PO Q8HR PRN #20 tab PRN Reason: Pain Is patient prescribed a controlled substance at d/c from ED?: No Referrals: Faustino Dhillon DO [Doctor of Osteopathic Medicine] - 1-2 days Time of Disposition: 13:41
--- NOTE | 2024-01-19 13:18 | XR ---
EXAMINATION TYPE: XR ankle complete 3 views LT DATE OF EXAM: 01/19/2024 Comparison: None Clinical History: 48-year-old female twisting injury to the ankle with pain Findings: Ankle mortise is congruent with preservation of the distal tibiofibular overlap. Talar dome is intact . Small delineation to the Achilles tendon. Subtalar joint is aligned. No acute fracture, subluxation , dislocation seen. Impression: No acute osseous abnormality seen.
[2024-01-19 14:21] VITALS: BP 132/84; PULSE 68
== END 2024-01-19 14:05 | disposition home or self-care (01) ==
LOC: EC 11:38
DX: S93.402A Sprain of unspecified ligament of left ankle, initial encounter (principal); X50.1XXA Overexertion from prolonged static or awkward postures, initial encounter
CPT/HCPCS: 73610; 99283; 96372; J1885

== ENCOUNTER 2024-03-04 14:21 | Emergency (ER) | payer MEDICARE ==
[2024-03-04 14:37] VITALS: BP 144/82; PULSE 67; TEMP 98.2
--- NOTE | 2024-03-04 15:07 | ED ---
General Adult HPI - General Chief complaint: Extremity Problem,Nontraumatic Stated complaint: L hand sore Time Seen by Provider: 03/04/24 14:44 Source: patient, RN notes reviewed, old records reviewed Mode of arrival: ambulatory Limitations: no limitations - History of Present Illness Initial comments: 48-year-old female with left thumb foreign body. States that several weeks ago she got a splinter or some foreign object in the left thumb. She is legally blind and was unable to remove this. She attempted with a needle. But was unsuccessful. She has had pain and swelling at the site. Pain is localized to the site of entry. - Related Data Home Medications Medication Instructions Recorded Confirmed Brimonidine Tartrate [Alphagan P 1 drop BOTH EYES TID 12/21/20 04/03/23 0.2% Ophth Soln] Dorzolamide/Timolol/Pf 1 drop BOTH EYES BID 12/21/20 04/03/23 [Dorzolamide 2%-Timolol 0.5%] Latanoprost Ophth [Xalatan 0.005%] 1 drop BOTH EYES HS 12/21/20 04/03/23 Pilocarpine 1% Ophth Soln [Isopto 1 drop BOTH EYES BID 12/21/20 04/03/23 Carpine 1%] Aspirin EC [Ecotrin Low Dose] 81 mg PO HS 09/10/21 04/03/23 Previous Rx's Medication Instructions Recorded Cephalexin [Keflex] 500 mg PO Q12HR 14 Days #28 cap 04/03/23 Ondansetron Odt [Zofran Odt] 4 mg PO Q8HR PRN #20 tab 04/03/23 Nitrofurantoin Monohyd/M-Cryst 100 mg PO AC-BID 10 Days #20 cap 07/16/23 [Nitrofurantoin [place]-Mcr 100 mg] methylPREDNISolone Dose Pack 4 mg PO DIRECTED #1 packet 07/27/23 [Medrol Dose Pack] Ketorolac [Toradol] 10 mg PO Q8HR #15 tab 09/15/23 Nitrofurantoin Monohyd/M-Cryst 100 mg PO Q12HR #14 cap 09/15/23 [Macrobid] Ondansetron Odt [Zofran Odt] 4 mg PO Q8HR PRN #10 tab 09/15/23 Ibuprofen [Motrin] 600 mg PO Q8HR PRN #20 tab 01/19/24 Allergies Allergy/AdvReac Type Severity Reaction Status Date / Time No Known Allergies Allergy Verified 03/04/24 14:36 Review of Systems ROS Statement: Those systems with pertinent positive or pertinent negative responses have been documented in the HPI. ROS Other: All systems not noted in ROS Statement are negative. 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 PT REQUESTS THAT SHE RECEIVES NO BLOOD. History of Any Multi-Drug Resistant Organisms: ESBL Date of last positivie culture/infection: 08/13/16 MDRO Source:: urine e.coli ESBL Past Surgical History: Section, Tubal Ligation Additional Past Surgical History / Comment(s): sinus and multiple eye surgery Past Anesthesia/Blood Transfusion Reactions: Postoperative Nausea & Vomiting (PONV) Past Psychological History: Anxiety, Depression Smoking Status: Never smoker Past Alcohol Use History: Occasional Past Drug Use History: None Reported, Marijuana - Past Family History Mother Family Medical History: No Reported History Father Family Medical History: Diabetes Mellitus Additional Family Medical History / Comment(s): Some kind of heart issue. General Exam Limitations: no limitations General appearance: alert, in no apparent distress Head exam: Present: atraumatic, normocephalic Eye exam: Present: normal appearance, PERRL ENT exam: Present: normal exam Neck exam: Present: normal inspection Respiratory exam: Absent: respiratory distress Cardiovascular Exam: Present: regular rate, normal rhythm GI/Abdominal exam: Present: soft. Absent: distended, tenderness Extremities exam: Present: other (Left thumb, palmar surface distal phalanx has a swollen area without erythema and central suspected wooden sliver.) Course Vital Signs 03/04/24 14:35 Temperature 98.2 F Pulse Rate 67 Respiratory 16 Rate Blood Pressure 144/82 O2 Sat by Pulse 97 Oximetry Procedures - Forgein Body Removal Soft Tissue Consent Obtained: verbal consent Site: hand Anesthetic Used: lidocaine 1% Amount (mLs): 2 Foreign Body Suspected: Wood Foreign Body Removed: yes Foreign Body Removal Technique: Instrumentation Patient Tolerated Procedure: well Medical Decision Making - Medical Decision Making Was pt. sent in by a medical professional or institution (NATASHA Rob, CORPORATE COMPLIANCE MANAGER, urgent care, hospital, or prison...) When possible be specific @ -No Did you speak to anyone other than the patient for history (EMS, parent, family, police, friend...)? What history was obtained from this source @ -No Did you review nursing and triage notes (agree or disagree)? Why? @ -I reviewed and agree with nursing and triage notes Were old charts reviewed (outside hosp., previous admission, EMS record, old EKG, old radiological studies, urgent care reports/EKG's, prison records)? Report findings @ -No old charts were reviewed Differential Diagnosis papilloma virus, wooden foreign body with granuloma, cellulitis EKG interpreted by me (3pts min.). @ -As above X-rays interpreted by me (1pt min.). @ -None done CT interpreted by me (1pt min.). @ -None done U/S interpreted by me (1pt. min.). @ -None done What testing was considered but not performed or refused? (CT, X-rays, U/S, labs)? Why? @ -None What meds were considered but not given or refused? Why? @ -None Did you discuss the management of the patient with other professionals (professionals i.e. NATASHA Rob, CORPORATE COMPLIANCE MANAGER, lab, RT, psych nurse, social scientist, filling winder, teacher, security flex officer, caseworker)? Give summary @ -No Was smoking cessation discussed for >3mins.? @ -No Was critical care preformed (if so, how long)? @ -No Were there social determinants of health that impacted care today? How? (Homelessness, low income, unemployed, alcoholism, drug addiction, transportation, low edu. Level, literacy, decrease access to med. care, snf, rehab)? @ -No Was there de-escalation of care discussed even if they declined (Discuss DNR or withdrawal of care, Hospice)? DNR status @ -No What co-morbidities impacted this encounter? (DM, HTN, Smoking, COPD, CAD, Cancer, CVA, ARF, Chemo, Hep., AIDS, mental health diagnosis, sleep apnea, morbid obesity)? @ -None Was patient admitted / discharged? Hospital course, mention meds given and route, prescriptions, significant lab abnormalities, going to OR and other pertinent info. @ -[48-year-old female with foreign body in the left thumb. There is a central suspected wooden sliver with surrounding inflammatory tissue, no signs of infection. I was able to anesthetize the area with lidocaine and remove the foreign body. Patient will follow with primary care. Undiagnosed new problem with uncertain prognosis? @ -No Drug Therapy requiring intensive monitoring for toxicity (Heparin, Nitro, Insulin, Cardizem)? @ -No Were any procedures done? @ -[yes foreign body removal Diagnosis/symptom? @ -Soft tissue foreign body, removed Acute, or Chronic, or Acute on Chronic? @ -Default Uncomplicated (without systemic symptoms) or Complicated (systemic symptoms)? @ -Default Side effects of treatment? @ -No Exacerbation, Progression, or Severe Exacerbation? @ -No Poses a threat to life or bodily function? How? (Chest pain, [place], [place], pneumonia, PE, COPD, DKA, ARF, appy, cholecystitis, CVA, Diverticulitis, Homicidal, Suicidal, threat to staff... and all critical care pts) @ -No Disposition Clinical Impression: Superficial foreign body (sliver) Disposition: HOME SELF-CARE Condition: Good Instructions (If sedation given, give patient instructions): Soft Tissue Foreign Body (ED) Is patient prescribed a controlled substance at d/c from ED?: No Referrals: None,Stated [Primary Care Provider] - 1-2 days Time of Disposition: 15:07
[2024-03-04 15:13] VITALS: RESP 18
== END 2024-03-04 15:26 | disposition home or self-care (01) ==
LOC: EC 14:21
DX: S60.352A Superficial foreign body of left thumb, initial encounter (principal); X58.XXXA Exposure to other specified factors, initial encounter
CPT/HCPCS: 10120; 99283

== ENCOUNTER 2024-03-21 12:27 | Emergency (ER) | payer MEDICARE ==
[2024-03-21 12:34] VITALS: RESP 16
--- NOTE | 2024-03-21 12:56 | ED ---
Female Urogenital HPI - General Chief complaint: Urogenital Stated complaint: Urogenital Time Seen by Provider: 03/21/24 12:41 Source: patient, RN notes reviewed Mode of arrival: ambulatory Limitations: no limitations - History of Present Illness Initial comments: 48-year-old female presented to the ER with a chief complaint of pelvic pain. Patient reports she had sexual intercourse approximately 3 days ago and has been experiencing vaginal bleeding since. She states the bleeding is heavy with occasional clots. She states when she stands up it does run down her leg. She denies any blood thinner use. She denies any current urinary complaints. She does state the day after intercourse she took Keflex as she was having painful urination. She is describing a left-sided lower abdominal discomfort. Patient denies any fevers, chills, nausea, vomiting, chest pain, shortness of breath. - Related Data Home Medications Medication Instructions Recorded Confirmed Brimonidine Tartrate [Alphagan P 1 drop BOTH EYES TID 12/21/20 04/03/23 0.2% Ophth Soln] Dorzolamide/Timolol/Pf 1 drop BOTH EYES BID 12/21/20 04/03/23 [Dorzolamide 2%-Timolol 0.5%] Latanoprost Ophth [Xalatan 0.005%] 1 drop BOTH EYES HS 12/21/20 04/03/23 Pilocarpine 1% Ophth Soln [Isopto 1 drop BOTH EYES BID 12/21/20 04/03/23 Carpine 1%] Aspirin EC [Ecotrin Low Dose] 81 mg PO HS 09/10/21 04/03/23 Previous Rx's Medication Instructions Recorded Cephalexin [Keflex] 500 mg PO Q12HR 14 Days #28 cap 04/03/23 Ondansetron Odt [Zofran Odt] 4 mg PO Q8HR PRN #20 tab 04/03/23 Nitrofurantoin Monohyd/M-Cryst 100 mg PO AC-BID 10 Days #20 cap 07/16/23 [Nitrofurantoin [place]-Mcr 100 mg] methylPREDNISolone Dose Pack 4 mg PO DIRECTED #1 packet 07/27/23 [Medrol Dose Pack] Ketorolac [Toradol] 10 mg PO Q8HR #15 tab 09/15/23 Nitrofurantoin Monohyd/M-Cryst 100 mg PO Q12HR #14 cap 09/15/23 [Macrobid] Ondansetron Odt [Zofran Odt] 4 mg PO Q8HR PRN #10 tab 09/15/23 Ibuprofen [Motrin] 600 mg PO Q8HR PRN #20 tab 01/19/24 Allergies Allergy/AdvReac Type Severity Reaction Status Date / Time No Known Allergies Allergy Verified 03/04/24 14:36 Review of Systems ROS Statement: Those systems with pertinent positive or pertinent negative responses have been documented in the HPI. ROS Other: All systems not noted in ROS Statement are negative. 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 PT REQUESTS THAT SHE RECEIVES NO BLOOD. History of Any Multi-Drug Resistant Organisms: ESBL Date of last positivie culture/infection: 08/13/16 MDRO Source:: urine e.coli ESBL Past Surgical History: Section, Tubal Ligation Additional Past Surgical History / Comment(s): sinus and multiple eye surgery Past Anesthesia/Blood Transfusion Reactions: Postoperative Nausea & Vomiting (PONV) Past Psychological History: Anxiety, Depression Smoking Status: Never smoker Past Alcohol Use History: Occasional Past Drug Use History: Marijuana - Past Family History Mother Family Medical History: No Reported History Father Family Medical History: Diabetes Mellitus Additional Family Medical History / Comment(s): Some kind of heart issue. General Exam Limitations: no limitations General appearance: alert, in no apparent distress Respiratory exam: Present: normal lung sounds bilaterally. Absent: respiratory distress, wheezes, rales, rhonchi, stridor Cardiovascular Exam: Present: regular rate, normal rhythm, normal heart sounds. Absent: systolic murmur, diastolic murmur, rubs, gallop, clicks GI/Abdominal exam: Present: soft, tenderness (LLQ), normal bowel sounds External exam: Present: normal external exam Speculum exam: Present: other (mild cervical bleeding) Skin exam: Present: warm, dry, intact, normal color. Absent: rash Course Vital Signs 03/21/24 03/21/24 12:30 14:26 Temperature 98.5 F 98.3 F Pulse Rate 71 77 Respiratory 16 16 Rate Blood Pressure 137/91 133/89 O2 Sat by Pulse 98 98 Oximetry Medical Decision Making - Medical Decision Making Was pt. sent in by a medical professional or institution (NATASHA Rob, HANDS AND DIAL INSPECTOR, urgent care, hospital, or longterm...) When possible be specific @ -No Did you speak to anyone other than the patient for history (EMS, parent, family, police, friend...)? What history was obtained from this source @ -No Did you review nursing and triage notes (agree or disagree)? Why? @ -I reviewed and agree with nursing and triage notes Were old charts reviewed (outside hosp., previous admission, EMS record, old EKG, old radiological studies, urgent care reports/EKG's, longterm records)? Report findings @ -No old charts were reviewed Differential Diagnosis (chest pain, altered mental status, abdominal pain women, abdominal pain men, vaginal bleeding, weakness, fever, dyspnea, syncope, headache, dizziness, GI bleed, back pain, seizure, CVA, palpatations, mental health, musculoskeletal)? @ -Differential Vaginal Bleeding: Spontaneous , threatened , molar , ectopic , bloody show, incompetent cervix, abruptioplacenta, placenta previa, uterine rupture, dysfunctional uterine bleeding, hemorrhage, uterine fibroids, this is not meant to be an all-inclusive list. EKG interpreted by me (3pts min.). @ -None X-rays interpreted by me (1pt min.). @ -None done CT interpreted by me (1pt min.). @ -None done U/S interpreted by me (1pt. min.). @ -Transvaginal ultrasound negative for acute process. What testing was considered but not performed or refused? (CT, X-rays, U/S, labs)? Why? @ -Patient refused STD testing. What meds were considered but not given or refused? Why? @ -Patient refused prophylactic STD treatment. Did you discuss the management of the patient with other professionals (professionals i.e. NATASHA Rob, HANDS AND DIAL INSPECTOR, lab, RT, psych nurse, social welfare administrator, assembler dry cell and battery, teacher, forest fire management officer, mental health case manager)? Give summary @ -No Was smoking cessation discussed for >3mins.? @ -No Was critical care preformed (if so, how long)? @ -No Were there social determinants of health that impacted care today? How? (Homelessness, low income, unemployed, alcoholism, drug addiction, transportation, low edu. Level, literacy, decrease access to med. care, nursing home, rehab)? @ -No Was there de-escalation of care discussed even if they declined (Discuss DNR or withdrawal of care, Hospice)? DNR status @ -No What co-morbidities impacted this encounter? (DM, HTN, Smoking, COPD, CAD, Cancer, CVA, ARF, Chemo, Hep., AIDS, mental health diagnosis, sleep apnea, morbid obesity)? @ -None Was patient admitted / discharged? Hospital course, mention meds given and route, prescriptions, significant lab abnormalities, going to OR and other pertinent info. @ -Discharge. 48-year-old female presented to ER with chief complaint vaginal bleeding. History and physical exam completed. Vitals stable. Patient in no signs of distress and nontoxic-appearing. Mild tenderness to left lower quadrant constipation with no bowel sounds. Pelvic exam completed and chaperoned by Zonia CARMEN. Pelvic exam remarkable for a closed cervical os with minimal bleeding. Ultrasound obtained to rule out any abnormality which is negative. Laboratory studies not obtained as bleeding is very minimal and patient is currently not on any blood thinners. Urinalysis hemorrhagic which is likely contaminated from vaginal bleeding. Bleeding believed to be due to from cervical trauma due to recent sexual intercourse. Patient refused STD testing and prophylactic treatment. Upon reevaluation, patient resting comfortably in exam room no signs of acute distress. Results discussed with patient, all questions answered. Advised close follow-up with PCP and RECREATIONAL SPECIALIST. Strict return parameters discussed. Patient discharged stable condition. Patient verbally expressed understanding and agreement care plan. Case discussed with ED attending, Dr. Saul. Undiagnosed new problem with uncertain prognosis? @ -No Drug Therapy requiring intensive monitoring for toxicity (Heparin, Nitro, Insulin, Cardizem)? @ -No Were any procedures done? @ -No Diagnosis/symptom? @ -Vaginal bleeding Acute, or Chronic, or Acute on Chronic? @ -Acute Uncomplicated (without systemic symptoms) or Complicated (systemic symptoms)? @ -Uncomplicated Side effects of treatment? @ -No Exacerbation, Progression, or Severe Exacerbation? @ -No Poses a threat to life or bodily function? How? (Chest pain, [place], [place], pneumonia, PE, COPD, DKA, ARF, appy, cholecystitis, CVA, Diverticulitis, Homicidal, Suicidal, threat to staff... and all critical care pts) @ -No - Lab Data Lab Results 03/21/24 03/21/24 Range/Units 13:35 13:35 Urine Color Colorless Urine Appearance Clear (Clear) Urine pH 6.0 (5.0-8.0) Ur Specific [place] 1.007 (1.001-1.035) Urine Protein Negative (Negative) Urine Glucose (UA) Negative (Negative) Urine Ketones Negative (Negative) Urine Blood Moderate H (Negative) Urine Nitrite Negative (Negative) Urine Bilirubin Negative (Negative) Urine Urobilinogen <2.0 (<2.0) mg/dL Ur Leukocyte Esterase Negative (Negative) Urine RBC 1 (0-5) /hpf Urine WBC 1 (0-5) /hpf Ur Squamous Epith Cells 1 (0-4) /hpf Hyaline Casts 1 (0-2) /lpf Urine Mucus Rare H (None) /hpf Urine HCG, Qual Not Detected (Not Detectd) - Radiology Data Radiology results: report reviewed, image reviewed Disposition Clinical Impression: Abnormal vaginal bleeding Disposition: HOME SELF-CARE Condition: Stable Instructions (If sedation given, give patient instructions): Safe Sex Practices (ED) Additional Instructions: Please follow-up with PCP and RECREATIONAL SPECIALIST. Return to the ER for any new or worsening symptoms. Is patient prescribed a controlled substance at d/c from ED?: No Referrals: None,Stated [Primary Care Provider] - 1-2 days Lauren Woodson DO [Doctor of Osteopathic Medicine] - 1-2 days Forms: PH Area PCPs Time of Disposition: 14:12
--- NOTE | 2024-03-21 13:55 | US ---
EXAMINATION TYPE: US transvaginal DATE OF EXAM: 03/21/2024 COMPARISON: CT 2022 CLINICAL INDICATION: Female, 48 years old with history of bleeding; Bleeding x 3 days after intercour se TECHNIQUE: Transvaginal ER exam Date of LMP: 2 weeks ago EXAM MEASUREMENTS: Uterus: 7.7 x 3.4 x 4.2 cm Endometrial Stripe: 0.5 cm Right Ovary: not seen Left Ovary: not seen 1. Uterus: anteverted 2. Endometrium: appears wnl 3. Right Ovary: not seen due to overlying bowel gas 4. Left Ovary: not seen due to overlying bowel gas 5. Bilateral Adnexa: wnl 6. Posterior cul-de-sac: wnl IMPRESSION: 1. No Evidence for acute process. 2. Endometrium within normal limits for thickness. 3. Ovaries not seen due to bowel gas.
[2024-03-21 14:00] LABS: Appearance,Urine Clear (Clear); Bilirubin,Urine Negative (Negative); Blood,Urine Moderate (Negative); Color,Urine Colorless; Glucose,Urine (UA) Negative (Negative); Hyaline Casts,Urine 1 /lpf (0-2); Ketones,Urine Negative (Negative); Leukocyte Esterase,Urine Negative (Negative); Mucus,Urine Rare /hpf; Nitrite,Urine Negative (Negative); Protein,Urine Negative (Negative); RBC,Urine 1 /hpf (0-5); Specific Gravity,Urine 1.007 (1.001-1.035); Squamous Epithelial Cell,Urine 1 /hpf (0-4); Urobilinogen,Urine <2.0 mg/dL (<2.0); WBC,Urine 1 /hpf (0-5)
[2024-03-21 14:29] VITALS: BP 133/89; PULSE 77; TEMP 98.3
== END 2024-03-21 14:29 | disposition home or self-care (01) ==
LOC: EC 12:27
DX: N93.9 Abnormal uterine and vaginal bleeding, unspecified (principal); F12.90 Cannabis use, unspecified, uncomplicated
CPT/HCPCS: 76830; 81001; 81025; 99283

== ENCOUNTER 2024-04-15 23:00 | Observation (INO) | payer MEDICARE ==
[~2024-04-15 23:00] MED LIST changes: -DEXAMETHASONE SOD PHOSPHATE 10 MG/ML 1 ML VIAL IV ONE; +KETOROLAC 15 MG/ML 1 ML VIAL ONE; -LACTATED RINGERS 1,000 ML IV SCH; +MORPHINE SULFATE 4 MG/ML SYRINGE ONE; -ONDANSETRON 4 MG/2 ML VIAL IVP ONE; +ONDANSETRON 4 MG/2 ML VIAL ONE; -Pre Op ABX Message 1 EACH MISC MISCELLANE ONE; +SODIUM CHLORIDE 0.9% 1,000 ML BAG ONE
[2024-04-16] MEDS ORDERED: KETOROLAC 15 MG/ML 1 ML VIAL ONE (03:36)
--- NOTE | 2024-05-05 15:44 | US ---
Patient: Amelia Isidro Ordering Physician: Unknown, Unknown ID: [id number] Phone, Pager: Phone: N/A Pager: N/A : 1975 Age/Gender: 49Y, O Primary Location: N/A Procedure: US venous doppler d uplex LE RT Study Date: 04/15/2024 9:32:00 PM EXAMINATION TYPE: US venous doppler duplex LE RT DATE OF EXAM: 05/02/2024 3:18 PM COMPARISON: NONE CLINICAL INDICATION: HISTORY: CHEST PAIN, LEG SWELLING, HX DVT. NOT CURRENTLY ON THINNERS SIDE PERFORMED: Right TECHNIQUE: The lower extremity deep venous system is examined utilizing real time linear array sonog jeremiah with graded compression, doppler sonography and color-flow sonography. VESSELS IMAGED: Common Femoral Vein Deep Femoral Vein Greater Saphenous Vein * Femoral Vein Popliteal Vein Small Saphenous Vein * Proximal Calf Veins (* superficial vessels) Right Leg: Negative for DVT Grayscale, color doppler, spectral doppler imaging performed of the deep veins of the lower extremiti es. There is normal flow, compressibility, vascular waveforms. IMPRESSION: No evidence for deep vein thrombosis.
--- NOTE | 2024-05-27 09:55 | XR ---
Site ID synapse default Patient Amelia Isidro ID [id number] 1975 Age/Gender: 49Y, F Order # N/A Procedure XR chest 2V Date 04/15/2024 9:13:57 PM EXAMINATION TYPE: Chest X-ray 2 Views DATE OF EXAM: 05/02/2024 8:46 PM COMPARISON: Chest radiographs from 08/11/2023 TECHNIQUE: Chest X-ray 2 Views Frontal and lateral views of the chest. CLINICAL INDICATION: Female, 49 year old with history of chest pain; FINDINGS: Lungs/Pleura: There is no evidence of pleural effusion, focal consolidation, or pneumothorax. Pulmonary vascularity: Unremarkable. Heart/mediastinum: Cardiomediastinal silhouette is unremarkable. Musculoskeletal: No acute osseous pathology. IMPRESSION: No acute cardiopulmonary disease/process.
== END 2024-04-16 16:28 | disposition home or self-care (01) ==
LOC: 1SOBS 23:00
PROVIDERS: ADMIT Hospitalist; ATTEND Hospitalist
DX: R07.89 Other chest pain (principal); I10 Essential (primary) hypertension; R73.03 Prediabetes; Z86.718 Personal history of other venous thrombosis and embolism; Z82.49 Family history of ischemic heart disease and other diseases of the circulatory system
CPT/HCPCS: 71046; 80053; 83735; 83880; 84100; 84484; 85025; 85379; 85610; 85730; 93005

== ENCOUNTER 2024-05-02 22:31 | Emergency (ER) | payer MEDICARE ==
[~2024-05-02 22:31] MED LIST changes: -MORPHINE SULFATE 4 MG/ML SYRINGE ONE; +ONDANSETRON 4 MG ODT STARTER PACK 2 TAB BTL ONE
--- NOTE | 2024-06-19 17:04 | XR ---
EXAM: XR Chest, 2 Views CLINICAL HISTORY: covid like symptoms TECHNIQUE: Frontal and lateral views of the chest. COMPARISON: No relevant prior studies available. FINDINGS: Lungs:No consolidation or mass. Pleural space:No effusion. Heart:No cardiomegaly. Bones/joints:No acute findings. IMPRESSION: No acute cardiopulmonary process. Radiologist: Daryl Cobos MD Electronically Signed: 05/03/24 03:40 Study first marked ready to read at 02:19, study last marked ready to read at 02:19, initial results transmitted at 03:40 MTDD
== END 2024-05-03 07:36 | disposition home or self-care (01) ==
LOC: EC 22:31
DX: K52.9 Noninfective gastroenteritis and colitis, unspecified (principal)
CPT/HCPCS: 71046; 96361; 96374; 96375; 99284

== ENCOUNTER → 2024-06-30 | Outpatient (CLI) | payer MEDICARE ==
[2024-06-30 15:58] LABS: HCT 39.5 % (37.2-46.3); HGB 13.4 g/dL (12.0-15.0); MCH 31.2 pg (27.0-32.0); MCHC 33.9 g/dL (32.0-37.0); MCV 91.9 FL (80.0-97.0); Mean Platelet Volume 12.6 FL (9.5-12.2); NRBC Per 100 WBC 0 X 10*3/uL (0.00-0.01); Platelet Count 156 X 10*3/uL (140-440); RDW 13.2 % (11.5-14.5); WBC 5.02 X 10*3/uL (4.50-10.00)
[2024-06-30 17:33] LABS: Blood Urea Nitrogen 6.8 mg/dL (9.0-27.0); Carbon Dioxide 21.5 mmol/L (21.6-31.8); Chloride 106 mmol/L (96-109); Potassium 3.6 mmol/L (3.5-5.5); Sodium 141 mmol/L (135-145)
== END | disposition home or self-care (01) ==
LOC: LABWHC1 09:18
PROVIDERS: ATTEND Ophthalmology Glaucoma Specialist
DX: H40.223 Chronic angle-closure glaucoma, bilateral (principal)
CPT/HCPCS: 36415; 80051; 82565; 84520; 85027

== ENCOUNTER → 2025-03-20 | Outpatient (CLI) | payer MEDICARE ==
[2025-03-20 13:36] LABS: HCT 41.8 % (37.2-46.3); HGB 13.5 g/dL (12.0-15.0); MCH 30.5 pg (27.0-32.0); MCHC 32.3 g/dL (32.0-37.0); MCV 94.4 FL (80.0-97.0); NRBC Per 100 WBC 0 X 10*3/uL (0.00-0.01); Platelet Count 158 X 10*3/uL (140-440); RBC 4.43 X 10*6/uL (4.10-5.20); RDW 13.1 % (11.5-14.5); WBC 4.79 X 10*3/uL (4.50-10.00)
[2025-03-20 13:40] LABS: Anion Gap 7.00 mmol/L (4.00-12.00); Blood Urea Nitrogen 14.4 mg/dL (9.0-27.0); Carbon Dioxide 21.0 mmol/L (21.6-31.8); Chloride 107 mmol/L (96-109); Potassium 4.0 mmol/L (3.5-5.5); Sodium 135 mmol/L (135-145)
== END | disposition home or self-care (01) ==
LOC: LABWHC1 07:29
PROVIDERS: ATTEND Ophthalmology Glaucoma Specialist
DX: H40.223 Chronic angle-closure glaucoma, bilateral (principal)
CPT/HCPCS: 36415; 80051; 82565; 84520; 85027